=== PATIENT | male | born 1955 | race Two or more races ===

== ENCOUNTER 2017-12-16 18:48 | Inpatient (IN) | payer OTHER ==
[~2017-12-16] VITALS: Ht 165.1 cm; Wt 44.9 kg
--- NOTE | 2017-12-16 19:30 | NUR ---
62 yo male bib ra from snf. patient is alert and oriented, patient was sent by PMD for low H&H. patient was ds to er bed, skin warm and dry, resp even and unlabored. pt was gowned,placed on night monitor. awaiting orders from provider, will continue to monitor
[2017-12-16 20:20] LABS: BASOPHILS % (AUTO) 0.8 % (0.0-2.0); EOSINOPHILS % (AUTO) 0.1 % (0.0-6.0); HEMATOCRIT 29 % (39-51); HEMOGLOBIN 9.3 g/dL (13.5-17.5); LYMPHOCYTES # (AUTO) 0.5 /CMM (0.8-4.8); LYMPHOCYTES % (AUTO) 10.6 % (20.0-44.0); MEAN CORPUSCULAR HEMOGLOBIN 23 PG (26.0-33.0); MEAN CORPUSCULAR HGB CONC 32 g/dl (31.0-36.0); MEAN CORPUSCULAR VOLUME 73 fL (80-96); MONOCYTES # (AUTO) 0.1 /CMM (0.1-1.30); MONOCYTES % (AUTO) 2.3 % (2.0-12.0); NEUTROPHILS # (AUTO) 4.5 /CMM (1.8-8.9); NEUTROPHILS % (AUTO) 86.2 % (43.0-81.0); PLATELET COUNT (AUTO) 429 /CMM (150-450); RDW COEFFICIENT OF VARIATION 16.9 (11.5-15.0); RED BLOOD CELL COUNT(AUTO) 4.04 MIL/uL (4.5-6.0); WHITE BLOOD COUNT (AUTO) 5.1 K/uL (4.3-11.0)
[2017-12-16 20:30] LABS: CREATININE 0.8 mg/dL (0.6-1.3); POTASSIUM 5.3 mmol/L (3.5-5.1)
[2017-12-16 20:34] LABS: INR 0.95 (0.85-1.15)
--- NOTE | 2017-12-16 20:44 | NUR ---
RECEIVED CALL FROM LAB STATING BLOOD SAMPLE WAS HEMOLYZED AND NEW BLOOD DRAW IS REQUIRED. MADE AWARE
--- NOTE | 2017-12-16 21:12 | NUR ---
PT ASSIGNED M/S 103
[2017-12-16] MEDS ORDERED: ONDANSETRON HCL/PF 4 MG/2 ML VIAL IVP PRN (21:30)
[2017-12-16] MEDS ORDERED: ZOLPIDEM TARTRATE 5 MG TABLET PO PRN (21:30)
[2017-12-16] MEDS ORDERED: IV NS 0.9% 1,000 ML BAG IV ONE (21:30)
[2017-12-16] MEDS ORDERED: HYDROCODONE/APAP 5/325MG 1 EACH TABLET PO PRN (21:30)
[2017-12-16] MEDS ORDERED: MAG HYDROX/AL HYDROX/SIMETH 30 ML UDC PO PRN (21:30)
[2017-12-16] MEDS ORDERED: MAGNESIUM HYDROXIDE 30 ML UDC PO PRN (21:30)
[2017-12-16] MEDS ORDERED: MORPHINE SULFATE INJ 2 MG/ML DISP.SYRIN IV PRN (21:30)
[2017-12-16] MEDS ORDERED: ACETAMINOPHEN 325 MG TABLET PO PRN (21:30)
[2017-12-16] MEDS ORDERED: SODIUM POLYSTYRENE SULFONATE 15 G/60 ML BOTTLE GT ONE (21:30)
[2017-12-16] MEDS ORDERED: Z GUARD REMEDY 2 OZ OINT TP PRN (21:30)
[2017-12-16] MEDS ORDERED: MORPHINE SULFATE INJ 4 MG/ML DISP.SYRIN ONE (21:35)
[2017-12-16] MEDS ORDERED: HYDROMORPHONE INJ 2 MG/ML DISP.SYRIN ONE (21:36)
--- NOTE | 2017-12-16 22:15 | NUR ---
RN OPENING NOTES: RECEIVED PATIENT FROM ED VIA GURNEY; PT AWAKE AND ALERT; WITH TRACH ON COOL AEROSOL TOLERATED WELL, NOT I APPARENT DISTRESS. PATIENT NOTED TO BE COUGHING ALOT, WITH WHITE THICK SECRETIONS. SKIN CARE AND SKIN CHECK RENDERED. NOTED GT SITE RED AND MILDLY BLEEDING.; GT PATENCY CHECKED AND CONFIRMED VIA AUSCULTATION AND RETURN OF GASTRIC EVENTS. NO COMPLAINTS OF PAIN. SAFETY MEASURES ENSURED. CALL LIGHT IN REACH. ORAL CARE RENDERED. ORDERS NOTED AND CARRIED OUT. CONTINUOUSLY MONITORED
--- NOTE | 2017-12-16 22:15 | NUR ---
tranasported pt to ms bed with emt without incident
--- NOTE | 2017-12-16 22:25 | NUR ---
PT RCVD TRACHED PORTEX 9 AND PLACED ON COOL AEROSOL 28% 5L . SUCTIONED FROTHY WHITE THICK SECRETIONS. SPO2 100%, HR 100. PT IS ALERT AND AWAKE . NO RESPIRATORY DISTRESS OR SOB NOTED AT THIS TIME. RN BRIA NOTIFIED.
--- NOTE | 2017-12-16 23:15 | NUR ---
RN NOTES: DR MONTALVO IN, RELAYED CONCERNS TO MD. MD CHECKED PATIENT. MED RECON IN. MD TO VERIFY.
[2017-12-16] MEDS ORDERED: NA P133E RC (23:32)
[2017-12-16] MEDS ORDERED: BISA10SU61 RC (23:32)
[2017-12-16] MEDS ORDERED: *INS HUMA SQ (23:32)
[2017-12-16] MEDS ORDERED: SENN8.6T60 PO (23:32)
[2017-12-16] MEDS ORDERED: ONDA4TAB5 PO (23:32)
[2017-12-16] MEDS ORDERED: MELA3TAB PO (23:32)
[2017-12-16] MEDS ORDERED: ACET160S PO (23:32)
[2017-12-16] MEDS ORDERED: DOCU50LI13 PO (23:32)
[2017-12-16] MEDS ORDERED: MULT9LIQ6 PO (23:32)
[2017-12-16] MEDS ORDERED: NUT.237L30 PO (23:32)
[2017-12-16] MEDS ORDERED: ALBU2.5V13 NEB ×2 (23:32)
[2017-12-16] MEDS ORDERED: FAMO-131 PO (23:32)
[2017-12-16] MEDS ORDERED: MAGN400O6 GT (23:32)
[2017-12-16] MEDS ORDERED: FENT1PAT5 TP (23:32)
[2017-12-16] MEDS ORDERED: HYDR-548 PO (23:32)
[2017-12-17] VITALS (9 sets, daily range): BP systolic 90–107; BP diastolic 52–73
[2017-12-17] MEDS: IV NS 0.9% 1,000 ML IV PRN (00:29)
[2017-12-17] MEDS: GLUCERNA 1.2 1,000 ML BOTTLE NG PRN (01:22)
[2017-12-17] MEDS ORDERED: BISACODYL SUPP (10 MG) 10 MG/SUPP.RECT SUPP.RECT RC PRN (01:30)
[2017-12-17] MEDS ORDERED: NA PHOS,M-B/NA PHOS,DI-BA 1 EA ENEMA RC PRN (01:30)
[2017-12-17] MEDS ORDERED: MAGNESIUM HYDROXIDE 30 ML UDC GT PRN (01:30)
--- NOTE | 2017-12-17 01:50 | NUR ---
RN NOTES: NOTED MD TO HAVE VERIFIED MED RECON. AGREED TO SWITCH TYLENOL AND BREATHING TX PRN SAME SNF ORDERS. PER MD TO CONTINUE GT FEEDING IN SNF. HOLD FREE WATER FLUSHES WHILE PATIENT WITH IVF. PER MD NOT TO CONTINUE NPH BUT START PATIENT ON MILD SLIDING SCALE. NOTED AND CARRIED OUT. CONTINUOUSLY MONITORED.
[2017-12-17] MEDS ORDERED: ACETAMINOPHEN 160 MG/5 ML PO PRN ×2 (02:00→05:00)
[2017-12-17] MEDS ORDERED: INSULIN REGULAR, HUMAN 100 UNIT/ML 3 ML VIAL SQ PRN (02:00)
[2017-12-17] MEDS ORDERED: DEXTROSE 50%-WATER 50 ML DISP.SYRIN IV PRN (02:00)
[2017-12-17] MEDS ORDERED: IPRA0.2S49 NEB (02:14)
[2017-12-17] MEDS ORDERED: ALBUTEROL FS 2.5 MG/0.5 ML VIAL.NEB NEB PRN ×2 (05:00→06:00)
[2017-12-17] MEDS ORDERED: ACETAMINOPHEN 160 MG/5 ML PO SCH ×2 (05:00)
[2017-12-17] MEDS ORDERED: ALBUTEROL FS 2.5 MG/0.5 ML VIAL.NEB NEB SCH ×2 (05:00→06:00)
[2017-12-17] MEDS: BLOOD SUGAR DIAGNOSTIC 1 EACH STRIP IN SCH ×3 (05:04→17:12)
[2017-12-17 06:25] LABS: BASOPHILS % (AUTO) 0.1 % (0.0-2.0); EOSINOPHILS % (AUTO) 0.7 % (0.0-6.0); HEMATOCRIT 24 % (39-51); HEMOGLOBIN 7.5 g/dL (13.5-17.5); LYMPHOCYTES # (AUTO) 0.7 /CMM (0.8-4.8); LYMPHOCYTES % (AUTO) 12.2 % (20.0-44.0); MEAN CORPUSCULAR HEMOGLOBIN 24 PG (26.0-33.0); MEAN CORPUSCULAR HGB CONC 32 g/dl (31.0-36.0); MEAN CORPUSCULAR VOLUME 75 fL (80-96); MONOCYTES # (AUTO) 0.4 /CMM (0.1-1.30); MONOCYTES % (AUTO) 7.3 % (2.0-12.0); NEUTROPHILS # (AUTO) 4.6 /CMM (1.8-8.9); NEUTROPHILS % (AUTO) 79.7 % (43.0-81.0); PLATELET COUNT (AUTO) 349 /CMM (150-450); RDW COEFFICIENT OF VARIATION 18.1 (11.5-15.0); RED BLOOD CELL COUNT(AUTO) 3.14 MIL/uL (4.5-6.0); WHITE BLOOD COUNT (AUTO) 5.7 K/uL (4.3-11.0)
[2017-12-17 06:43] LABS: CALCIUM, SERUM 8.7 mg/dL (8.5-10.1); CREATININE 0.7 mg/dL (0.6-1.3); MAGNESIUM 2.1 mg/dL (1.8-2.4); PHOSPHORUS 3.9 mg/dL (2.5-4.9); POTASSIUM 4.3 mmol/L (3.5-5.1)
[2017-12-17] MEDS ORDERED: ACETAMINOPHEN 325 MG TABLET PO PRN (07:00)
--- NOTE | 2017-12-17 07:36 | NUR ---
RN CLOSING NOTES: PATIENT REMAINED IN BED NOT IN APPARENT DISTRESS. NOTED GT SLIGHTLY LEAKING. MONITORED FOR FURTHER BLEEDING. AM LABS DRAWN; RESULTS IN. FOR MD TO FOLLOW UP. SKIN CARE RENDERED; ENDORSED TO AM SHIFT ESTEVAN SOLORIO.
--- NOTE | 2017-12-17 07:49 | NUR ---
MS ESTEVAN OPENING NOTE RECEIVED PATIENT IN BED, SLEEPING, EASILY AROUSED WITH VERBAL STIMULI. ORIENTED X4. UNABLE TO SPEAK DUE TO TRACH BUT MOUTHS WORDS AND WRITES ON A BOARD. PATIENT IS ON COOL AEROSOL WITH 5L O2 TOLERATING WELL. PATIENT WITH G-TUBE AND FEEDING RUNNING AT 80ML/HR. GT SITE HAS MODERATE SEROSONGUINEOUS DRAINAGE Addendum: 12/17/17 at 0756 by LYNDSEY PAZ RN DRESSING CHANGED AND INTACT. WITH L FOREARM IV ACCESS 18G. WITH FLUIDS RUNNING AT 100ML.HR. PATENT AND INTACT. NO SIGN OF INFILTRATION NOTED. KEPT CLEAN AND COMFORTABLE, SAFETY MEASURES IN PLACE, BED IN LOWL OCKED POSITION, SIDE RAILS UP X2, CALL LIGHT WITHIN EASY REACH. WILL CONIUE TO MONITOR.
[2017-12-17] MEDS: SENNOSIDES 8.6 MG TABLET PO SCH (08:56)
[2017-12-17] MEDS: FAMOTIDINE (20 MG) 20 MG TABLET PO SCH (08:56)
[2017-12-17] MEDS: DOCUSATE SODIUM LIQ 100 MG/10 ML UDC PO SCH (08:58)
[2017-12-17] MEDS ORDERED: HYDROCODONE/APAP 10/325MG 1 EA TABLET PO SCH (09:00)
[2017-12-17] MEDS ORDERED: HYDROCODONE/APAP 10/325MG 1 EA TABLET PO PRN (09:00)
[2017-12-17] MEDS ORDERED: FENTANYL TD PATCH (25 MCG/HR) 25 MCG/HR PATCH.TD72 TD SCH (10:00)
[2017-12-17] MEDS ORDERED: MAG HYDROX/AL HYDROX/SIMETH 30 ML UDC PO PRN (14:30)
[2017-12-17] MEDS ORDERED: Medication Not On Formulary EA (Melatonin 1 TAB) PO SCH (18:00)
[2017-12-17 18:15] LABS: BASOPHILS % (AUTO) 0.2 % (0.0-2.0); EOSINOPHILS % (AUTO) 0.5 % (0.0-6.0); HEMATOCRIT 21 % (39-51); LYMPHOCYTES # (AUTO) 0.6 /CMM (0.8-4.8); LYMPHOCYTES % (AUTO) 14.2 % (20.0-44.0); MEAN CORPUSCULAR HEMOGLOBIN 24 PG (26.0-33.0); MEAN CORPUSCULAR HGB CONC 32 g/dl (31.0-36.0); MEAN CORPUSCULAR VOLUME 75 fL (80-96); MONOCYTES # (AUTO) 0.4 /CMM (0.1-1.30); MONOCYTES % (AUTO) 8.7 % (2.0-12.0); NEUTROPHILS # (AUTO) 3.2 /CMM (1.8-8.9); NEUTROPHILS % (AUTO) 76.4 % (43.0-81.0); PLATELET COUNT (AUTO) 326 /CMM (150-450); RDW COEFFICIENT OF VARIATION 18.7 (11.5-15.0); RED BLOOD CELL COUNT(AUTO) 2.87 MIL/uL (4.5-6.0); WHITE BLOOD COUNT (AUTO) 4.2 K/uL (4.3-11.0)
[2017-12-17 18:23] LABS: HEMOGLOBIN 6.9 g/dL (13.5-17.5)
--- NOTE | 2017-12-17 18:33 | NUR ---
MS RN CLOSING NOTE PATIENT IN BED, SLEEPING, EASILY AROUSED WITH VERBAL STIMULI. ORIENTED X4. UNABLE TO SPEAK DUE TO TRACH BUT MOUTHS WORDS AND WRITES ON A BOARD. PATIENT IS ON COOL AEROSOL WITH 5L O2 TOLERATING WELL, CONTINUOUS PULSOX MONITORING. PATIENT WITH G-TUBE AND FEEDING HELD PER MD ORDER. GT SITE HAS MODERATE SEROSANGUINEOUS DRAINAGE AND LEAKAGE, DRESSING CHANGED AND INTACT. PLAN TO REPLACE G-TUBE IN AM BY DR. KRAUS. WITH L FOREARM IV ACCESS 18G. WITH FLUIDS RUNNING AT 100ML.HR. PATENT AND INTACT. NO SIGN OF INFILTRATION NOTED. ALL MEDICATIONS GIVEN, ORDERS RENDERED, DRESSING CHANGE DONE NEEDED, SUCTIONED NEEDED, KEPT CLEAN AND COMFORTABLE, SAFETY MEASURES IN PLACE, BED IN LOW LOCKED POSITION, SIDE RAILS UP X2, CALL LIGHT WITHIN EASY REACH. WILL CONTINUE TO MONITOR. Addendum: 12/17/17 at 1837 by LYNDSEY PAZ RN WILL ENDORSE TO PM NURSE FOR VITO.
[2017-12-17 18:46] LABS: BAND % (MANUAL) 16 % (0.0-5.0); LYMPHOCYTES % (MANUAL) 17 % (16-48); MONOCYTES % (MANUAL) 9 % (0-11.0); NEUTROPHILS % (MANUAL) 58 (42-76)
--- NOTE | 2017-12-17 19:15 | NUR ---
MS1 RN NOTES RECEIVED ON BED A/O X4,WITH TRACH TO COOL AEROSOL,28%,PORTEX #9.O2 SAT 100%.WITH IVF NS AT 100ML/HR RATE INFUSING WELL VIA IV PUMP ON LEFT FORE AR, #18.CURRENTLY HIS H/H 69/21.WILL TRANSFUSE 1 UNIT OF PRBC ORDERED.WITH GT IN PLACE,SLIGHT LEAKS NOTED ON SITE.DRESSING IN PLACE.WILL CONTINUE TO MONITOR STATUS.
--- NOTE | 2017-12-17 19:48 | NUR ---
MS1 RN NOTES 1 UNITS ON PRBC STARTED AT 100ML/HR RATE VIA IV PUMP.WILL MONITOR FOR S/S OF BLOOD TRANSFUSION REACTIONS.
--- NOTE | 2017-12-17 22:46 | NUR ---
MS1 RN NOTES DRESSING CHANGE TO GT SITE DONE
--- NOTE | 2017-12-17 22:59 | NUR ---
MS RN NOTES BLOOD TRANSFUSION COMPLETED WITHOUT ADVERSE REACTIONS NOTED,TOLERATED WELL.VITAL SIGNS WITH IN NORMAL LIMITS.PATIENT ALERT,ORIENTED X4
--- NOTE | 2017-12-17 23:00 | NUR ---
RN INITIAL NOTE RECEIVED PATIENT IN BED, AWAKE, ORIENTED X4. UNABLE TO SPEAK DUE TO TRACH BUT MOUTHS WORDS AND WRITES ON A BOARD. PATIENT IS ON COOL AEROSOL WITH 5L O2 TOLERATING WELL. PATIENT HAS G-TUBE CLAMPED. REPORT GIVEN BY MANUEL. WILL CONT TO MONITOR.
--- NOTE | 2017-12-17 23:04 | NUR ---
MS RN NOTES NO SIGNIFICANT CHANGE IN STATUS AT THE MOMENT.REPORT GIVEN TO TELLO BARRETO FOR VITO.
[2017-12-18] VITALS: BP 95/59
[2017-12-18] MEDS: BLOOD SUGAR DIAGNOSTIC 1 EACH STRIP IN SCH ×4 (00:17→18:00)
[2017-12-18 04:00] VITALS: BP 110/58
[2017-12-18 06:28] LABS: CALCIUM, SERUM 8.3 mg/dL (8.5-10.1); CREATININE 0.6 mg/dL (0.6-1.3); POTASSIUM 4.3 mmol/L (3.5-5.1)
[2017-12-18 06:43] LABS: BASOPHILS % (AUTO) 0.2 % (0.0-2.0); EOSINOPHILS % (AUTO) 1.6 % (0.0-6.0); HEMATOCRIT 26 % (39-51); HEMOGLOBIN 8.5 g/dL (13.5-17.5); LYMPHOCYTES # (AUTO) 0.9 /CMM (0.8-4.8); MEAN CORPUSCULAR HEMOGLOBIN 26 PG (26.0-33.0); MEAN CORPUSCULAR HGB CONC 33 g/dl (31.0-36.0); MEAN CORPUSCULAR VOLUME 79 fL (80-96); MONOCYTES # (AUTO) 0.3 /CMM (0.1-1.30); MONOCYTES % (AUTO) 6.1 % (2.0-12.0); NEUTROPHILS # (AUTO) 3.4 /CMM (1.8-8.9); NEUTROPHILS % (AUTO) 73.1 % (43.0-81.0); PLATELET COUNT (AUTO) 306 /CMM (150-450); RDW COEFFICIENT OF VARIATION 20.5 (11.5-15.0); RED BLOOD CELL COUNT(AUTO) 3.33 MIL/uL (4.5-6.0); WHITE BLOOD COUNT (AUTO) 4.7 K/uL (4.3-11.0)
--- NOTE | 2017-12-18 07:20 | NUR ---
RN INITIAL NOTE RECEIVED PATIENT IN BED, AWAKE, ORIENTED X4. UNABLE TO SPEAK DUE TO TRACH BUT MOUTHS WORDS AND WRITES ON A BOARD. PATIENT IS ON COOL AEROSOL WITH 5L O2 SATURATING 99%. PATIENT HAS G-TUBE CLAMPED. IV ON LFA#18 WITH NS @100CC/HR.GT REPLACEMENT TODAY PER REPORT.PATIENT MADE AWARE.NPO STATUS NOW. WILL CONT TO MONITOR.
[2017-12-18 08:00] VITALS: BP 96/64
[2017-12-18] MEDS: SENNOSIDES 8.6 MG TABLET PO SCH (08:11)
[2017-12-18] MEDS: FAMOTIDINE (20 MG) 20 MG TABLET PO SCH (08:11)
[2017-12-18] MEDS: DOCUSATE SODIUM LIQ 100 MG/10 ML UDC PO SCH (08:11)
[2017-12-18] MEDS: IV NS 0.9% 1,000 ML IV PRN (09:09)
[2017-12-18] MEDS ORDERED: FENTANYL TD PATCH (25 MCG/HR) 25 MCG/HR PATCH.TD72 TD SCH (10:00)
--- NOTE | 2017-12-18 12:55 | NUR ---
RN NOTES PATIENT BLOOD SUGAR CHECKED .60 AND 63.NPO.ON IVF NS AT 75CC/HR.BAND SAW OPERATOR NATASHA MADE AWARE.CHANGED IVF TO D5NS AT 100CC/HR.ALSO MADE HIM AWARE ABOUT SURGERY NOT HAVING ANY SCHEDULE TO DO GT REPLACEMENT TODAY.HE TOLD WILL SEE THE PATIENT LATER.WILL CONTINUE TO MONITOR.
[2017-12-18] MEDS ORDERED: IV D5/ 0.9% NACL 1,000 ML IV PRN (13:00)
[2017-12-18] MEDS ORDERED: LIDOCAINE 1% INJ 50 ML MDV IJ ONE (14:30)
--- NOTE | 2017-12-18 14:30 | NUR ---
RN NOTES SEEN BY ,REPLACED GT WITH NEW GT [id number].PLACEMENT VERIFIED WITH AUSCULTATION.NO KUB NEEDED PER .GOT AN ORDER TO RESUME FEEDING TO 40CCHR AND INCREASE 10CC Q6H UNTIL REACH GOAL OF 80CCHR.WILL CONTINUE TO MONITOR.
[2017-12-18] MEDS: GLUCERNA 1.2 1,000 ML BOTTLE NG PRN (15:28)
[2017-12-18] MEDS ORDERED: IV NS 0.9% 1,000 ML BAG IV PRN (15:30)
[2017-12-18 16:00] VITALS: BP 96/65
[2017-12-18] MEDS ORDERED: SILVER SULFADIAZINE CREAM 25 GM TUBE TP SCH ×2 (16:00)
--- NOTE | 2017-12-18 17:30 | NUR ---
RN NOTES SEEN BY JOSE KAUR GOT DISCHARGE ORDER.
--- NOTE | 2017-12-18 19:17 | NUR ---
PLANT PATHOLOGY TEACHER NOTE PATIENT [facility] TO [facility] IN STABLE CONDITION VIA AMBULANCE.NO SOB NO DISTRESS NOTED AT THIS TIME.DENIED PAIN AT THIS TIME.ALL DISCHARGE INSTRUCTIONS GIVEN TO THE PATIENT AND RN AT FACILITY,SPOKE TO SAMUEL.PAPER WORK SIGNED BY THE PATIENT,TOOK ALL THE BELONGINGS.DISCHARGE PACKET GIVEN TO PARAMEDICS.BROTHER NOTIFIED,LEFT MESSAGE.
== END 2017-12-18 19:15 | DRG 252 ==
LOC: ER 18:54 → MEDSG1 21:57
PROVIDERS: ADMIT Internal Medicine; ATTEND Internal Medicine
PROC: 30233N1 Transfusion of Nonautologous Red Blood Cells into Peripheral Vein, Percutaneous Approach (ICD-10-PCS; principal; 2017-12-17)
DX: K94.22 Gastrostomy infection (principal); J96.20 Acute and chronic respiratory failure, unspecified whether with hypoxia or hypercapnia; E43 Unspecified severe protein-calorie malnutrition; J96.10 Chronic respiratory failure, unspecified whether with hypoxia or hypercapnia; R53.2 Functional quadriplegia; D68.59 Other primary thrombophilia; C76.0 Malignant neoplasm of head, face and neck; E87.1 Hypo-osmolality and hyponatremia; L03.311 Cellulitis of abdominal wall; E86.0 Dehydration; E11.9 Type 2 diabetes mellitus without complications; D63.8 Anemia in other chronic diseases classified elsewhere; J44.9 Chronic obstructive pulmonary disease, unspecified; K21.9 Gastro-esophageal reflux disease without esophagitis; Y84.8 Other medical procedures as the cause of abnormal reaction of the patient, or of later complication, without mention of misadventure at the time of the procedure; Y82.8 Other medical devices associated with adverse incidents; Z87.891 Personal history of nicotine dependence; Y92.129 Unspecified place in nursing home as the place of occurrence of the external cause; Z85.850 Personal history of malignant neoplasm of thyroid; R26.9 Unspecified abnormalities of gait and mobility; D50.9 Iron deficiency anemia, unspecified; E87.6 Hypokalemia; E86.1 Hypovolemia; R13.10 Dysphagia, unspecified; Z79.4 Long term (current) use of insulin
CPT/HCPCS: 31720; 36415; 71045-TC; 80048-TC; 82962-TC; 83735-TC; 84100-TC; 85025-TC; 85730-TC; 86850-TC; 86921-TC; 87081-TC; 94640-TC; A4606; A4623; A6402; A6403; J1170; J1815; J2270; J3490; J7030; J7042; J7050; P9016-BL; Z7610

== ENCOUNTER 2018-01-22 14:54 | Inpatient (IN) | payer OTHER ==
[~2018-01-22] VITALS: Ht 165.1 cm; Wt 46.7 kg
[~2018-01-22 14:54] MED LIST: *INS HUMA SQ; ACET160S GT; ACET160S PO; ALBU2.5V13 NEB; BISA10SU61 RC; DOCU50LI13 GT; FAMO-131 GT; FENT1PAT5 TP; HYDR-548 GT; IPRA0.2S49 NEB; MAGN400O6 GT; MELA3TAB GT; MULT9LIQ6 GT; NA P133E RC; NUT.237L30 GT; ONDA4TAB5 GT; SENN8.6T60 GT
--- NOTE | 2018-01-22 15:05 | NUR ---
SENT FROM [facility] FOR LOW HEMOGLOBIN. PATIENT HAS TRACH ON COOL AEROSOL. BREATHING EVEN AND UNLABORED. NO SOB, NAD, VITALS STABLE. SAFETY AND COMFORT MEASURES IN PLACE. AWAITING MD ORDERS.
[2018-01-22] MEDS ORDERED: IPRA0.2S9 IH ×2 (15:13)
[2018-01-22] MEDS ORDERED: INSU100V27 SQ (15:13)
[2018-01-22] MEDS ORDERED: BLOO-668 IN (15:13)
[2018-01-22] MEDS ORDERED: PANTOPRAZOLE 40 MG VIAL ONE (15:22)
[2018-01-22] MEDS ORDERED: PANTOPRAZOLE 40 MG VIAL IV ONE (15:30)
--- NOTE | 2018-01-22 15:30 | NUR ---
NEW IV STARTED ON RFA, 20G. BLOOD DRAWN AND SENT TO LAB.
[2018-01-22 15:39] LABS: HEMATOCRIT 25 % (39-51); HEMOGLOBIN 7.9 g/dL (13.5-17.5); LYMPHOCYTES # (AUTO) 0.6 /CMM (0.8-4.8); LYMPHOCYTES % (AUTO) 22.5 % (20.0-44.0); MEAN CORPUSCULAR HEMOGLOBIN 25 PG (26.0-33.0); MEAN CORPUSCULAR HGB CONC 32 g/dl (31.0-36.0); MEAN CORPUSCULAR VOLUME 77 fL (80-96); NEUTROPHILS % (AUTO) 74.5 % (43.0-81.0); PLATELET COUNT (AUTO) 178 /CMM (150-450); RDW COEFFICIENT OF VARIATION 17.3 (11.5-15.0); RED BLOOD CELL COUNT(AUTO) 3.17 MIL/uL (4.5-6.0); WHITE BLOOD COUNT (AUTO) 2.6 K/uL (4.3-11.0)
[2018-01-22 15:48] LABS: CALCIUM, SERUM 9.3 mg/dL (8.5-10.1); CARBON DIOXIDE 35 mmol/L (21-32); CHLORIDE 88 mmol/L (98-107); CREATININE 0.8 mg/dL (0.6-1.3); GLUCOSE 136 mg/dL (74-106); POTASSIUM 3.5 mmol/L (3.5-5.1); SODIUM SERUM 127 mmol/L (136-145); UREA NITROGEN, BLOOD 21 mg/dL (7-18)
[2018-01-22 15:51] LABS: INR 0.98 (0.85-1.15)
[2018-01-22 15:55] LABS: TROPONIN I < 0.017 ng/mL (0.00-0.056)
[2018-01-22 16:01] LABS: B-TYPE NATRIURETIC PEPTIDE 66 PG/ML (0-125)
--- NOTE | 2018-01-22 16:23 | NUR ---
DR. SELVIN IBRAHIM.
[2018-01-22] MEDS ORDERED: IV NS 0.9% 1,000 ML BAG IV ONE (16:30)
[2018-01-22 17:15] VITALS: BP 106/70
--- NOTE | 2018-01-22 17:15 | NUR ---
REPORT GIVEN TO RN, AFSATU FOR VITO UPON ADMISSION.
--- NOTE | 2018-01-22 17:24 | NUR ---
PATIENT TRANSPORTED TO [facility] VIA ACLS PROTOCOL. RN, AFSATU TO PROVIDE VITO.
[2018-01-22] MEDS ORDERED: ZOLPIDEM TARTRATE 5 MG TABLET PO PRN (17:30)
[2018-01-22] MEDS ORDERED: MORPHINE SULFATE INJ 2 MG/ML DISP.SYRIN IV PRN (17:30)
[2018-01-22] MEDS ORDERED: ALBUTEROL FS 2.5 MG/0.5 ML VIAL.NEB NEB PRN (17:30)
[2018-01-22] MEDS ORDERED: BISACODYL SUPP (10 MG) 10 MG/SUPP.RECT SUPP.RECT RC PRN (17:30)
[2018-01-22] MEDS ORDERED: MAG HYDROX/AL HYDROX/SIMETH 30 ML UDC PO PRN (17:30)
[2018-01-22] MEDS ORDERED: Z GUARD REMEDY 2 OZ OINT TP PRN (17:30)
[2018-01-22] MEDS ORDERED: NA PHOS,M-B/NA PHOS,DI-BA 1 EA ENEMA RC PRN (17:30)
[2018-01-22] MEDS ORDERED: IPRATROPIUM NEB FS 0.5 MG/2.5 ML AMPUL.NEB IH PRN (17:30)
[2018-01-22] MEDS ORDERED: MAGNESIUM HYDROXIDE 30 ML UDC PO PRN (17:30)
[2018-01-22] MEDS ORDERED: ONDANSETRON HCL/PF 4 MG/2 ML VIAL IVP PRN (17:30)
[2018-01-22] MEDS ORDERED: HYDROCODONE/APAP 5/325MG 1 EACH TABLET PO PRN (17:30)
--- NOTE | 2018-01-22 17:36 | NUR ---
VOCATIONAL EXAMINERNEUROPHYSIOLOGIST NOTES RECEIVED PT FROM ER NURSE IN STABLE CONDITION. PT WILL BE ADMITTED FOR ANEMIA. PT IS A/O X3. NO SOB OR ACUTE SIGNS IF DISTRESS NOTED. HE DENIES ANY DIZZINESS OR PAIN. BREATHING IS EVEN AND UNLABORED. T PIECE NOTED. PEG NOTED TO BE PATENT AND INTACT. PLACEMENT VERIFIED VIA AUSCULTATION. EXCORIATION NOTED AROUND GTUBE SITE. PHOTO TAKEN AND PLACED IN PT'S CHART. PT IS CURRENTLY SINUS TACH ON THE TELE MONITOR WITH A HR OF 109. IV TO RIGHT FA NOTED TO BE PATENT AND INTACT. NO REDNESS OR SIGNS OF INFILTRATION NOTED. PT ORIENTED TO ROOM AND USE OS CALL LIGHT. BELONGINGS VERIFIED BY METAL PATTERN MAKER. BED IN LOW LOCKED POSITION, SIDE RAILS UP X2, CALL LIGHT WITHIN REACH. WILL BEGIN ADMISSION PROCESS AND AWAIT FURTHER ORDERS FROM THE
[2018-01-22] MEDS ORDERED: INSULIN REGULAR, HUMAN 100 UNIT/ML 3 ML VIAL SQ PRN (18:00)
[2018-01-22] MEDS ORDERED: DEXTROSE 50%-WATER 50 ML DISP.SYRIN IV PRN (18:00)
--- NOTE | 2018-01-22 18:23 | NUR ---
RELAY MAN NOTES: RESPIRATORY AND DIETARY F/U RT CONTACTED FOR 1800 NEBULIZER TREATMENT. PER RT "WE WILL BE THERE SHORTLY" DIETARY CONTACTED IN REGARDS TO TUBE FEEDING. PER DIETITIAN, "WE WILL BRING HIS FEEDINGS"
[2018-01-22] MEDS: IV NS 0.9% 1,000 ML IV PRN (18:58)
--- NOTE | 2018-01-22 18:58 | NUR ---
HEALTH PROGRAM MANAGER CLOSING NOTES PT REMAINS STABLE SINCE ADMISSION. AWAITING TUBE FEEDING DELIVERY FROM DIETARY. NS INFUSION STARTED. WILL ENDORSE TO NIGHTSHIFT NURSE TO BEGIN FEEDING AND VITO
[2018-01-22] MEDS: IPRATROPIUM NEB FS 0.5 MG/2.5 ML AMPUL.NEB IH SCH (19:19)
[2018-01-22] MEDS: ALBUTEROL FS 2.5 MG/0.5 ML VIAL.NEB NEB SCH (19:19)
--- NOTE | 2018-01-22 20:00 | NUR ---
CLINICAL TECH INITIAL NOTES RECEIVED PT FROM AM SHIFT NURSE IN STABLE CONDITION. PT ADMITTED FOR ANEMIA, HGH ABOVE 7, STANDING ORDER TO TRANSFUSE <7. PT IS A/O X3. NO SOB OR ACUTE SIGNS IF DISTRESS NOTED. HE DENIES ANY DIZZINESS OR PAIN. BREATHING IS EVEN AND UNLABORED. T PIECE NOTED. PEG NOTED, GTF GLUCERNA 1.2@80ML/HR, WELL LAWSON, NO RESIDUAL AT THIS TIME. PLACEMENT VERIFIED VIA AUSCULTATION. HOB ELEVATED WILL CONT TO MONITOR.
[2018-01-22] MEDS: GLUCERNA 1.2 1,000 ML BOTTLE GT SCH (20:41)
[2018-01-22] MEDS: SENNOSIDES 8.6 MG TABLET GT SCH (20:42)
[2018-01-22] MEDS: DOCUSATE SODIUM LIQ 100 MG/10 ML UDC GT SCH (20:42)
[2018-01-22] MEDS: BLOOD SUGAR DIAGNOSTIC 1 EACH STRIP IN SCH (20:42)
[2018-01-22] MEDS ORDERED: Medication Not On Formulary EA (Melatonin 3 MG) GT SCH (22:00)
--- NOTE | 2018-01-22 23:30 | NUR ---
TELE/RN ASSUMED CARE FOR CONTINUITY OF CARE. PATIENT IS SLEEPING AT THIS TIME, AROUSABLE, APPEAR COMFORTABLE, NO DISTRESS NOTED, SITTER AT BEDSIDE. WILL MONITOR. Addendum: 01/23/18 at 0009 by SHAKIR HUNTER RN PLS. DISREGARD ABOVE DOCUMENTATION, CHARTED ON THE WRONG PATIENT.
--- NOTE | 2018-01-22 23:30 | NUR ---
TELE/RN ASSUMED CARE FOR CONTINUITY OF CARE. PATIENT IS AWAKE, ALERT, COMFORTABLE, NO DISTRESS NOTED, TRACH COLLAR TO COOL AEROSOL, GT FEEDING INFUSING, NO RESIDUAL NOTED, HOB ELEVATED, CALL LIGHT IN REACH. WILL MONITOR.
[2018-01-23] VITALS (23 sets, daily range): BP systolic 87–102; BP diastolic 50–66
[2018-01-23] MEDS: ALBUTEROL FS 2.5 MG/0.5 ML VIAL.NEB NEB SCH ×4 (01:11→19:48)
[2018-01-23] MEDS: IPRATROPIUM NEB FS 0.5 MG/2.5 ML AMPUL.NEB IH SCH ×4 (01:11→19:48)
--- NOTE | 2018-01-23 06:00 | NUR ---
TELE/RN MORNING CARE DONE, TOTAL LINEN CHANGE RENDERED. TRACH CARE DONE, TOLERATED. G TUBE SITE LEAKING, CLEANED SITE WITH NS, DRAIN SPONGE DRESSING APPLIED, FEEDING STOPPED. WILL ENDORSE TO DAY SHIFT RN. PATIENT HAD AN ON AND OFF SLEEP THE WHOLE SHIFT, SUCTIONED TRACH PRN WITH WHITE SECRETIONS. ALL NEEDS ATTENDED AT THIS TIME. WILL ENDORSE
[2018-01-23 06:49] LABS: BILIRUBIN,TOTAL 0.2 mg/dL (0.2-1.0); CALCIUM, SERUM 8.5 mg/dL (8.5-10.1); CREATININE 0.7 mg/dL (0.6-1.3); POTASSIUM 3.4 mmol/L (3.5-5.1); TOTAL PROTEIN, SERUM 7.3 g/dL (6.4-8.2)
--- NOTE | 2018-01-23 07:30 | NUR ---
NECKTIE CENTRALIZING MACHINE OPERATOR NOTES REPORT RECEIVED FROM PM NURSE.PATIENT IS AXOX4.IN BED AWAKE.NOT IN ANY DISTRESS.C/O PAIN IN THE ABDOMEN.ON COOL AEROSOL AND GT FEEDING.GT LEAKING GT FEEDING ON HOLD .WAITING FOR GI CONSULT.BED IS LOW AND IN LOCKED POSITION.CALL LIGHT IN REACH.SRX3.ASKED TO CALL FOR HELP.ABLE TO MAKE NEEDS OWN.WILL CONTINUE TO MONITOR.
[2018-01-23 07:49] LABS: BASOPHILS % (AUTO) 0.3 % (0.0-2.0); HEMATOCRIT 21 % (39-51); LYMPHOCYTES # (AUTO) 0.6 /CMM (0.8-4.8); LYMPHOCYTES % (AUTO) 25.7 % (20.0-44.0); MEAN CORPUSCULAR HEMOGLOBIN 25 PG (26.0-33.0); MEAN CORPUSCULAR HGB CONC 32 g/dl (31.0-36.0); MEAN CORPUSCULAR VOLUME 79 fL (80-96); MONOCYTES # (AUTO) 0.1 /CMM (0.1-1.30); MONOCYTES % (AUTO) 2.1 % (2.0-12.0); NEUTROPHILS # (AUTO) 1.8 /CMM (1.8-8.9); NEUTROPHILS % (AUTO) 70.9 % (43.0-81.0); PLATELET COUNT (AUTO) 165 /CMM (150-450); RDW COEFFICIENT OF VARIATION 18.3 (11.5-15.0); RED BLOOD CELL COUNT(AUTO) 2.67 MIL/uL (4.5-6.0); WHITE BLOOD COUNT (AUTO) 2.5 K/uL (4.3-11.0)
[2018-01-23 08:21] LABS: HEMOGLOBIN 6.8 g/dL (13.5-17.5)
[2018-01-23] MEDS: SENNOSIDES 8.6 MG TABLET GT SCH ×2 (08:23→20:06)
[2018-01-23] MEDS: DOCUSATE SODIUM LIQ 100 MG/10 ML UDC GT SCH ×2 (08:25→20:06)
[2018-01-23] MEDS: MORPHINE SULFATE INJ 4 MG/ML DISP.SYRIN IV PRN (08:26)
--- NOTE | 2018-01-23 08:38 | NUR ---
CANVAS CUTTER MACHINE NOTES BLOOD SUGAR 135.INSULIN NOT ADMINISTERED BECAUSE GTUBE LEAKING UNABLE TO CONNECT TO G TUBE FEEDING
[2018-01-23] MEDS ORDERED: DIATR MEGLU/DIATRIZOATE SODIUM 30 ML BOTTLE (GASTROGRAPHIN) ONE (09:01)
[2018-01-23] MEDS: BLOOD SUGAR DIAGNOSTIC 1 EACH STRIP IN SCH ×2 (09:10→20:48)
[2018-01-23] MEDS ORDERED: POTASSIUM CHLORIDE 20 MEQ POWDER PACKET GT SCH (10:00)
--- NOTE | 2018-01-23 10:00 | NUR ---
QUANTITATIVE ANALYST MARKETING NOTES PATIENT C/O PAIN THE ABDOMEN.UNABLE TO ASPIRATE AND LEAKING FROM GTUBE.ENDO TECH IFRAH AWARE.GOT NEW ORDER FOR KUB.NOTED AD CARRIED OUT.
[2018-01-23] MEDS: IV NS 0.9% 1,000 ML IV PRN (10:12)
[2018-01-23 10:14] LABS: BAND % (MANUAL) 3 % (0.0-5.0); LYMPHOCYTES % (MANUAL) 3 % (16-48); MONOCYTES % (MANUAL) 1 % (0-11.0); NEUTROPHILS % (MANUAL) 93 (42-76)
[2018-01-23] MEDS: FAMOTIDINE (20 MG) 20 MG TABLET GT SCH (10:15)
[2018-01-23] MEDS: MULTIVIT, IRON, MIN NO. 8, FA 1 TAB GT SCH (10:15)
--- NOTE | 2018-01-23 11:18 | NUR ---
MANAGER PORT NOTES SEEN BY IFRAH NOTIFIED THAT PATIENT REFUSED BLOOD TRANSFUSION AND SCARED ABOUT CONTAMINATION WHILE BLOOD TRANSFUSION.PHYSIATRIST TALKED TO THE PATIENT.OK TO DO BLOOD TRANSFUSION.
--- NOTE | 2018-01-23 12:00 | NUR ---
ASPHALT SURFACE HEATER OPERATOR NOTES SEEN BY JOSE BURNETT UPDATED ABOUT PATIENT CONDITION.TALKED TO THE PATIENT.OK TO DO BLOOD TRANSFUSION.SIGNED THE CONSENT.
[2018-01-23] MEDS: ACETAMINOPHEN 325 MG TABLET PO PRN (16:26)
[2018-01-23] MEDS: SILVER SULFADIAZINE CREAM 25 GM TUBE TP SCH (18:13)
[2018-01-23] MEDS: GLUCERNA 1.2 1,000 ML BOTTLE GT SCH (18:35)
--- NOTE | 2018-01-23 19:10 | NUR ---
WATER TREATMENT PLANT REPAIRER CLOSING NOTES PATIENT IS AXOX4.IN BED AWAKE.NOT IN ANY DISTRESS.C/O PAIN IN THE ABDOMEN.ON COOL AEROSOL AND GT FEEDING .S/P BLOOD TRANSFUSION.IN STABLE CONDITION.GOT NEW ORDER FROM HORTENCIA,CHANGED GLUCERNA TO 60CC/HR PER DIETARY RECOMMENDATION .BED IS LOW AND IN LOCKED POSITION.CALL LIGHT IN REACH.SRX3.ASKED TO CALL FOR HELP.ABLE TO MAKE NEEDS OWN.ENDORSED TO PM NURSE FOR VITO AND TO DO LAB H/H FOR F/U AT 8PM.
--- NOTE | 2018-01-23 19:30 | NUR ---
FILM COMPOSER NOTES: RECEIVED PT ON BED ALERT AND AWAKE, ABLE TO MAKE NEEDS KNOWN. NO ACUTE DISTRESS NOTED. NO COMPLAINTS OF PAIN OR DISCOMFORT AT THIS TIME. ON COOL AEROSOL, NO SOB NOTED. GT INTACT, NO LEAKAGE NOTED AT THIS TIME. ON TELE MONITOR, SINUS RHYTHM HR 98BPM. IV ON RIGHT FOREARM #20 WITH IVF NS RUNNING AT 75ML/HR, INFUSING WELL. KEPT CLEAN, DRY AND COMFORTABLE. CALL LIGHT PLACED WITHIN REACH. SAFETY AND FALL PRECAUTIONS OBSERVED AND MAINTAINED. WILL CONTINUE TO MONITOR PT.
[2018-01-23] MEDS ORDERED: GLUCERNA 1.2 1,000 ML BOTTLE GT SCH (20:30)
[2018-01-23 21:11] LABS: HEMOGLOBIN 9.3 g/dL (13.5-17.5)
[2018-01-24] VITALS (9 sets, daily range): BP systolic 83–103; BP diastolic 41–70
[2018-01-24] MEDS: IPRATROPIUM NEB FS 0.5 MG/2.5 ML AMPUL.NEB IH SCH ×4 (01:14→20:28)
[2018-01-24] MEDS: ALBUTEROL FS 2.5 MG/0.5 ML VIAL.NEB NEB SCH ×4 (01:15→20:28)
[2018-01-24] MEDS: IV NS 0.9% 1,000 ML IV PRN ×2 (05:37→19:37)
--- NOTE | 2018-01-24 06:19 | NUR ---
PELLETISING EXTRUDER OPERATOR NOTES: NO CHANGES NOTED THROUGHOUT THE SHIFT. DENIES PAIN AND DISCOMFORT AT THIS TIME. NO SOB NOTED. SUCTIONED NEEDED. MINIMAL LEAKAGE NOTED ON GT SITE. KEPT CLEAN, DRY AND COMFORTABLE. SAFETY AND FALL PRECAUTIONS OBSERVED AND MAINTAINED. WILL ENDORSE TO DAY SHIFT FOR CONTINUITY OF CARE.
[2018-01-24 06:48] LABS: CALCIUM, SERUM 8.7 mg/dL (8.5-10.1); CREATININE 0.6 mg/dL (0.6-1.3); POTASSIUM 3.9 mmol/L (3.5-5.1)
[2018-01-24 07:30] LABS: BASOPHILS % (AUTO) 0.3 % (0.0-2.0); HEMATOCRIT 28 % (39-51); HEMOGLOBIN 9.2 g/dL (13.5-17.5); LYMPHOCYTES # (AUTO) 0.4 /CMM (0.8-4.8); LYMPHOCYTES % (AUTO) 21.4 % (20.0-44.0); MEAN CORPUSCULAR HEMOGLOBIN 27 PG (26.0-33.0); MEAN CORPUSCULAR HGB CONC 33 g/dl (31.0-36.0); MEAN CORPUSCULAR VOLUME 84 fL (80-96); MONOCYTES # (AUTO) 0.1 /CMM (0.1-1.30); MONOCYTES % (AUTO) 3.4 % (2.0-12.0); NEUTROPHILS # (AUTO) 1.5 /CMM (1.8-8.9); NEUTROPHILS % (AUTO) 73.9 % (43.0-81.0); PLATELET COUNT (AUTO) 133 /CMM (150-450); RDW COEFFICIENT OF VARIATION 18.7 (11.5-15.0); RED BLOOD CELL COUNT(AUTO) 3.36 MIL/uL (4.5-6.0); WHITE BLOOD COUNT (AUTO) 2.1 K/uL (4.3-11.0)
[2018-01-24] MEDS: MULTIVIT, IRON, MIN NO. 8, FA 1 TAB GT SCH (08:35)
[2018-01-24] MEDS: SENNOSIDES 8.6 MG TABLET GT SCH ×2 (08:35→21:52)
[2018-01-24] MEDS: DOCUSATE SODIUM LIQ 100 MG/10 ML UDC GT SCH ×2 (08:36→21:51)
[2018-01-24] MEDS: SILVER SULFADIAZINE CREAM 25 GM TUBE TP SCH (08:36)
--- NOTE | 2018-01-24 08:41 | NUR ---
Gastric residual 5ml.
[2018-01-24] MEDS: BLOOD SUGAR DIAGNOSTIC 1 EACH STRIP IN SCH ×2 (09:32→21:52)
[2018-01-24] MEDS: FAMOTIDINE (20 MG) 20 MG TABLET GT SCH (11:37)
--- NOTE | 2018-01-24 12:58 | NUR ---
Tube feeding site redness and leak of tube feeding with skin of center of site pulling away from rest of the surrounding tissue.
[2018-01-24 13:02] LABS: RETICULOCYTE COUNT 1.9 % (0.6-2.5)
[2018-01-24 14:16] LABS: THYROID STIMULATING HORMONE 0.473 uIU/mL (0.358-3.74); URIC ACID 4.6 mg/dL (2.6-7.2)
--- NOTE | 2018-01-24 17:03 | NUR ---
Oral care and tracheostomy suctioning. Offered lip moisturizer.
--- NOTE | 2018-01-24 18:03 | NUR ---
G-tube dressing change. Scant drainage noted at site. Improved skin condition. Much improved with Doctor Mauri cleaning and tightening of bumper.
--- NOTE | 2018-01-24 19:38 | NUR ---
Handoff to night nurse, ESTEVAN Iglesias. Ricki Enriquez RN
--- NOTE | 2018-01-24 20:00 | NUR ---
RN NOTES: RECEIVED BEDSIDE REPORT FROM AM NURSE. PT ON BED ALERT AND AWAKE, ABLE TO MAKE NEEDS KNOWN. NO ACUTE DISTRESS NOTED. NO COMPLAINTS OF PAIN OR DISCOMFORT AT THIS TIME. ON COOL AEROSOL, NO SOB NOTED. GT INTACT, NO LEAKAGE NOTED AT THIS TIME. ON TELE MONITOR, SINUS RHYTHM HR 94BPM. IV ON RIGHT FOREARM #20 WITH IVF NS RUNNING AT 75ML/HR, INFUSING WELL. KEPT CLEAN, DRY AND COMFORTABLE. CALL LIGHT PLACED WITHIN REACH. SAFETY AND FALL PRECAUTIONS OBSERVED AND MAINTAINED. WILL CONTINUE TO MONITOR PT.
[2018-01-24] MEDS: GLUCERNA 1.2 1,000 ML BOTTLE GT SCH (23:52)
[2018-01-25] VITALS: BP 95/58
[2018-01-25] MEDS: ALBUTEROL FS 2.5 MG/0.5 ML VIAL.NEB NEB SCH ×4 (01:00→20:13)
[2018-01-25] MEDS: IPRATROPIUM NEB FS 0.5 MG/2.5 ML AMPUL.NEB IH SCH ×4 (01:00→20:13)
[2018-01-25 04:00] VITALS: BP_SYST 129; BP_SYST 94; BP_DIAS 55; BP_DIAS 85
[2018-01-25] MEDS: ACETAMINOPHEN 325 MG TABLET PO PRN ×2 (05:15→12:56)
--- NOTE | 2018-01-25 06:00 | NUR ---
RN CLOSING NOTES PATIENT IN BED, A/OX4, ON T PIECE ,NON VERBAL, MOUTH WORDS. ON ACCREDITED PHARMACY TECHNICIAN SR, GTUBE FEEDING GLUCERNA 1.2@50ML/HR. GOT A CALL FROM LAB THAT PATIENT'S WBC IS 1.8, CHARGE NURSE GERMAN AND SOON NOTIFIED, PATIENT MOOVED TO REVERSE ISOLATION. RIGHT FOREARN IV LINE IS PATIENT, INTACT WITH IV FLUIDS NS @75ML/HR.WOUND CARE PROVIDED. ALL SAFETY MEASURES ARE IMPLEMENTED, BED IN LOWEST, LOCKED POSITIO, CALL LIGHT IN REACH. PT CARE WILL BE INDORSED TO AM NURSE FOR NURSE AIDE.
[2018-01-25 06:31] LABS: BASOPHILS % (AUTO) 0.4 % (0.0-2.0); EOSINOPHILS % (AUTO) 0.8 % (0.0-6.0); HEMATOCRIT 26 % (39-51); HEMOGLOBIN 8.5 g/dL (13.5-17.5); LYMPHOCYTES # (AUTO) 0.6 /CMM (0.8-4.8); LYMPHOCYTES % (AUTO) 35.9 % (20.0-44.0); MEAN CORPUSCULAR HEMOGLOBIN 27 PG (26.0-33.0); MEAN CORPUSCULAR HGB CONC 32 g/dl (31.0-36.0); MEAN CORPUSCULAR VOLUME 83 fL (80-96); MONOCYTES # (AUTO) 0.2 /CMM (0.1-1.30); MONOCYTES % (AUTO) 9.3 % (2.0-12.0); NEUTROPHILS % (AUTO) 53.6 % (43.0-81.0); PLATELET COUNT (AUTO) 116 /CMM (150-450); RDW COEFFICIENT OF VARIATION 17.7 (11.5-15.0); RED BLOOD CELL COUNT(AUTO) 3.19 MIL/uL (4.5-6.0)
[2018-01-25 06:45] LABS: WHITE BLOOD COUNT (AUTO) 1.8 K/uL (4.3-11.0)
[2018-01-25 06:48] LABS: CALCIUM, SERUM 8.7 mg/dL (8.5-10.1); CREATININE 0.5 mg/dL (0.6-1.3)
--- NOTE | 2018-01-25 07:30 | NUR ---
VALUE STREAM MANAGER OPENING NOTE RECEIVED PATIENT RESTING IN BED, A&OX4, ABLE TO MAKE NEEDS KNOWN BY MOUTHING WORDS. ON T PIECE, NO RESPIRATORY DISTRESS NOTED. PLACED ON REVERSE ISOLATION DUE TO LOW WHITE BLOOD CELL COUNT. IV SITE ON RIGHT FOREARM INTACT INFUSING NORMAL SALINE AT 75ML/HR. GLUCERNA INFUSING ORDERED. BED LOW AND LOCKED, CALL LIGHT WITHIN REACH, WILL CONTINUE TO MONITOR .
[2018-01-25 08:00] VITALS: BP 88/46
[2018-01-25] MEDS: DOCUSATE SODIUM LIQ 100 MG/10 ML UDC GT SCH ×2 (09:47→21:20)
[2018-01-25] MEDS: SENNOSIDES 8.6 MG TABLET GT SCH ×2 (09:50→21:20)
[2018-01-25] MEDS: SILVER SULFADIAZINE CREAM 25 GM TUBE TP SCH (09:50)
[2018-01-25] MEDS: MULTIVIT, IRON, MIN NO. 8, FA 1 TAB GT SCH (09:50)
[2018-01-25] MEDS: BLOOD SUGAR DIAGNOSTIC 1 EACH STRIP IN SCH ×2 (09:53→21:55)
[2018-01-25 09:55] LABS: BAND % (MANUAL) 4 % (0.0-5.0); BASOPHILS % (MANUAL) 0 % (0.0-2.0); EOSINOPHILS % (MANUAL) 0 % (0-4); LYMPHOCYTES % (MANUAL) 38 % (16-48); MONOCYTES % (MANUAL) 11 % (0-11.0); NEUTROPHILS % (MANUAL) 47 (42-76)
[2018-01-25 12:00] VITALS: BP 93/57
[2018-01-25] MEDS: FAMOTIDINE (20 MG) 20 MG TABLET GT SCH (12:14)
[2018-01-25] MEDS: IV NS 0.9% 1,000 ML IV PRN (12:16)
[2018-01-25 16:00] VITALS: BP 90/48
--- NOTE | 2018-01-25 17:13 | NUR ---
OVEN STRIPPER NOTE PATIENT WITH ONE EPISODE OF LOOSE STOOL. PORT STEWARD AWARE. WILL CONTINUE TO MONITOR.
[2018-01-25] MEDS ORDERED: COD LIVER OIL/ZINC OXIDE 120 GM TUBE TP PRN (17:30)
[2018-01-25] MEDS ORDERED: LOPERAMIDE HCL UDC(2 MG/10 ML) 2 MG/10 ML UDC GT PRN (18:30)
--- NOTE | 2018-01-25 19:40 | NUR ---
TELEGRAPH INSTALLER CLOSING NOTE PATIENT RESTING IN BED IN STABLE CONDITION. TRACH WITH T PIECE, SUCTIONED NEEDED. G TUBE SITE CARE DONE, ALL NEEDS MET AT THIS TIME. PATIENT ABLE TO MAKE NEEDS KNOWN. SINUS RHYTHM ON SHEAR OPERATOR HELPER. G TUBE FEEDING INFUSING PRESCRIBED, NORMAL SALINE INFUSING AT 75ML/HR, IV SITE INTACT. HEAD OF BED ELEVATED, BED LOW AND LOCKED, CALL LIGHT WITHIN REACH, WILL ENDORSE TO ONCOMING NURSE FOR CONTINUITY OF CARE.
[2018-01-25 20:00] VITALS: BP 109/62
--- NOTE | 2018-01-25 20:35 | NUR ---
pt received on cool aerosol via trach with charted settings. airway patent. trach secure via trach tie. pt alert. ambu bag at bedside. suctioned a small amount of thin white secretions. pt receiving breathing tx q6 at this time. pt hob at 30 degrees. suctioned oral secretion from pts mouth Addendum: 01/25/18 at 2035 by BEVERLY STEIN RT Amended: Links added.
[2018-01-25] MEDS: GLUCERNA 1.2 1,000 ML BOTTLE GT SCH (21:36)
[2018-01-26] VITALS (7 sets, daily range): BP systolic 88–119; BP diastolic 53–67
[2018-01-26] MEDS: IV NS 0.9% 1,000 ML IV PRN (01:32)
[2018-01-26] MEDS: MORPHINE SULFATE INJ 4 MG/ML DISP.SYRIN IV PRN ×2 (01:35→22:22)
[2018-01-26] MEDS: ALBUTEROL FS 2.5 MG/0.5 ML VIAL.NEB NEB SCH ×4 (01:36→20:13)
[2018-01-26] MEDS: IPRATROPIUM NEB FS 0.5 MG/2.5 ML AMPUL.NEB IH SCH ×4 (01:36→20:13)
[2018-01-26] MEDS: IV D5/0.45 NACL 1,000 ML IV SCH ×2 (02:53→15:24)
[2018-01-26 07:13] LABS: CALCIUM, SERUM 8.5 mg/dL (8.5-10.1); CREATININE 0.6 mg/dL (0.6-1.3); POTASSIUM 3.8 mmol/L (3.5-5.1)
--- NOTE | 2018-01-26 07:36 | NUR ---
WOUND CARE CONSULT WOUND CARE RECEIVED CONSULT FOR WOUND CARE. WOUND CARE WILL DEFER CONSULT AND ALL TREATMENT PLANS TO SURGICAL TEAM WHO ARE CURRENTLY FOLLOWING. PATIENT WITH MU AT 14, ALL PRESSURE ULCER PREVENTION MEASURES ARE NOTED TO BE IN PLACE. WILL SEE PRN.
--- NOTE | 2018-01-26 07:55 | NUR ---
TELE/RN NOTES: REPORT GIVEN TO NEXT SHIFT NURSE FOR VITO.
--- NOTE | 2018-01-26 08:00 | NUR ---
telegraph printer mechanic note patient in bed , alert oriented x4 with trach to cooler aerosol 28% fi02 sat 99% on tele monitor sr hr 71 , bed in lowest and locked position. plan of care discussed with patient , ,g tube feeding on hold at this time, hold all Meds, will f\u , g tube site with severe redness ans leaking ,tender to touch, on ivf as ordered , iv hl on rt fa intact, no s\infection noted , will cont to monitor closely on reverse isolation as ordered , trach care done
[2018-01-26] MEDS: SENNOSIDES 8.6 MG TABLET GT SCH ×2 (08:20→21:44)
[2018-01-26] MEDS: MULTIVIT, IRON, MIN NO. 8, FA 1 TAB GT SCH (08:20)
[2018-01-26] MEDS: DOCUSATE SODIUM LIQ 100 MG/10 ML UDC GT SCH ×2 (08:20→21:44)
[2018-01-26] MEDS: SILVER SULFADIAZINE CREAM 25 GM TUBE TP SCH (08:21)
[2018-01-26] MEDS: BLOOD SUGAR DIAGNOSTIC 1 EACH STRIP IN SCH ×2 (08:34→21:49)
[2018-01-26 08:59] LABS: WHITE BLOOD COUNT (AUTO) 1.5 K/uL (4.3-11.0)
[2018-01-26 09:00] LABS: BASOPHILS % (AUTO) 0.3 % (0.0-2.0); EOSINOPHILS % (AUTO) 0.7 % (0.0-6.0); HEMATOCRIT 25 % (39-51); HEMOGLOBIN 8.4 g/dL (13.5-17.5); LYMPHOCYTES % (AUTO) 43.1 % (20.0-44.0); MEAN CORPUSCULAR HEMOGLOBIN 28 PG (26.0-33.0); MEAN CORPUSCULAR HGB CONC 33 g/dl (31.0-36.0); MEAN CORPUSCULAR VOLUME 83 fL (80-96); MONOCYTES % (AUTO) 16.3 % (2.0-12.0); NEUTROPHILS % (AUTO) 39.6 % (43.0-81.0); PLATELET COUNT (AUTO) 93 /CMM (150-450); RDW COEFFICIENT OF VARIATION 18.7 (11.5-15.0); RED BLOOD CELL COUNT(AUTO) 3.05 MIL/uL (4.5-6.0)
[2018-01-26] MEDS ORDERED: TBO-FILGRASTIM 300 MCG/0.5 ML SYRINGE SQ SCH (09:00)
[2018-01-26] MEDS ORDERED: DIATR MEGLU/DIATRIZOATE SODIUM 30 ML BOTTLE (GASTROGRAPHIN) ONE (09:02)
--- NOTE | 2018-01-26 10:00 | NUR ---
INCIDENT COMMANDER NOTE ABDOMINAL X RAY DONE ORDERED
--- NOTE | 2018-01-26 10:37 | NUR ---
television host note spoke with daphney rn sourcer aware that gtube feeding site with redness and g tube site is leaking, g tube feeding on hold aware that Meds was not given patient is npo Addendum: 01/26/18 at 1047 by RONALD BLANCO RN notifyed to Kami that wbc 1.5 stated that patient has ent ca and will check patient soon
[2018-01-26] MEDS: FAMOTIDINE (20 MG) 20 MG TABLET GT SCH (10:43)
--- NOTE | 2018-01-26 10:56 | NUR ---
telephone clerk note Kami rn labor mediator at bedside seen g tube stoma .aware of kub result .stated keep npo at this time and will call gi doctor
[2018-01-26 11:42] LABS: BAND % (MANUAL) 3 % (0.0-5.0); EOSINOPHILS % (MANUAL) 1 % (0-4); LYMPHOCYTES % (MANUAL) 42 % (16-48); MONOCYTES % (MANUAL) 16 % (0-11.0); NEUTROPHILS % (MANUAL) 38 (42-76)
--- NOTE | 2018-01-26 12:00 | NUR ---
ATHLETIC FIELD CUSTODIAN NOTE ALL NEEDS ATTENDED G TUBE SITE CARE DONE, ALL NEEDS ATTENDED
--- NOTE | 2018-01-26 14:54 | NUR ---
PAINTER BOTTOM NOTE WOUND CARE NURSE AT BEDSIDE, SEEN G TUBE SITE ,WILL F\U
--- NOTE | 2018-01-26 15:35 | NUR ---
PRODUCT DESIGNER NOTE DR KRAUS AT BEDSIDE SEEN G TUBE STOMA WITH NEW ORDER GIVEN ,OK TO START G TUBE FEEDING, WILL F\U
--- NOTE | 2018-01-26 16:36 | NUR ---
HISTOLOGIST TECHNOLOGIST NOTE STARTED G TUBE FEEDING ORDERED AT 30 ML ,KEEP HOB ELEVATED AT ALL TIME .NO LEAKING AT THIS TIME ,WILL F\U
[2018-01-26] MEDS: ACETAMINOPHEN 325 MG TABLET PO PRN (16:44)
--- NOTE | 2018-01-26 18:11 | NUR ---
STOCK BROKER NOTE NOTED SMALL AMT OF LEAKAGE WITH G TUBE SITE ,TX DONE ORDERED, KEEP HOB ELEVATED AT ALL TIME WILL CONT TO MONITOR CLOSELY ,TRACH SECTION DONE .ALL NEEDS ATTENDED
--- NOTE | 2018-01-26 18:53 | NUR ---
CORPORATE WEBMASTER NOTE CONT ON G TUBE FEEDING ORDERED, TRACH SUCTION DONE, ALL NEEDS ATTENDED. NOT IN ACUTE DISTRESS, WILL CONT TO MONITOR CLOSELY
--- NOTE | 2018-01-26 19:30 | NUR ---
TELE/RN NOTES: RECEIVED PT. IN BED W/ HOB ELEVATED. ON REVERSE ISOLATION FOR WBC OF 1.5. A/O X 4. ABLE TO MAKE NEEDS KNOWN. ON GLUCERNA 1.2 W/ NO RESIDUAL NOTED. ABLE TO SUCTION SELF W/ YANKER. CONTINENT OF B/B. ABLE TO USE URINAL. ON TELE MONITOR W/SR 81. WILL CONTINUE TO MONITOR.
[2018-01-26] MEDS ORDERED: MORPHINE SULFATE INJ 4 MG/ML DISP.SYRIN ONE (22:17)
[2018-01-27] VITALS: BP 101/63
[2018-01-27] MEDS: ALBUTEROL FS 2.5 MG/0.5 ML VIAL.NEB NEB SCH ×4 (02:29→19:21)
[2018-01-27] MEDS: IPRATROPIUM NEB FS 0.5 MG/2.5 ML AMPUL.NEB IH SCH ×4 (02:29→19:21)
[2018-01-27 04:00] VITALS: BP 109/67
[2018-01-27] MEDS: MORPHINE SULFATE INJ 4 MG/ML DISP.SYRIN IV PRN (04:12)
[2018-01-27] MEDS: IV D5/0.45 NACL 1,000 ML IV SCH ×2 (05:47→20:20)
[2018-01-27 06:37] LABS: CALCIUM, SERUM 8.4 mg/dL (8.5-10.1); CREATININE 0.5 mg/dL (0.6-1.3); MAGNESIUM 1.9 mg/dL (1.8-2.4); PHOSPHORUS 3.2 mg/dL (2.5-4.9); POTASSIUM 3.3 mmol/L (3.5-5.1)
--- NOTE | 2018-01-27 07:00 | NUR ---
RN NOTES RECEIVED PT ON BED, A/Ox4, TRACH DEPENDENT, NO SOB NOTED, PT WATCHING TV, CARINE ANY DISTRESS, ON TELE SR HR IN 80'S , GLUCERNA AT 40CC/HR RUNNING VIA G-TUBE, D51/2NS AT 75CC/HR RUNNING VIA R FA IV G20 , SITE CLEAN , DRY AND INTACT, SR UP x3, CALL LIGHT WITHIN EASY REACH, BED LOCKED AND IN LOWEST POSITION, CONTINUE TO MONITOR.
--- NOTE | 2018-01-27 07:01 | NUR ---
WOUND CARE CONSULT WOUND CARE RECEIVED SECOND WOUND CONSULT FOR PEG CELLULITIS. WOUND CARE WILL CONTINUE TO DEFER TO SURGICAL TEAM WHO ARE CURRENTLY FOLLOWING. WOUND CARE RECOMMENDS GI CONSULT FOR PEG SITE CONTINUOUS LEAKING. WILL SEE PRN.
--- NOTE | 2018-01-27 07:24 | NUR ---
TELE/RN NOTES: REPORT GIVEN TO NEXT SHIFT NURSE FOR VITO.
[2018-01-27 07:25] LABS: BASOPHILS % (AUTO) 0.4 % (0.0-2.0); EOSINOPHILS % (AUTO) 0.5 % (0.0-6.0); HEMATOCRIT 25 % (39-51); HEMOGLOBIN 8.3 g/dL (13.5-17.5); LYMPHOCYTES # (AUTO) 0.6 /CMM (0.8-4.8); LYMPHOCYTES % (AUTO) 33.7 % (20.0-44.0); MEAN CORPUSCULAR HEMOGLOBIN 27 PG (26.0-33.0); MEAN CORPUSCULAR HGB CONC 33 g/dl (31.0-36.0); MEAN CORPUSCULAR VOLUME 83 fL (80-96); MONOCYTES # (AUTO) 0.4 /CMM (0.1-1.30); MONOCYTES % (AUTO) 20.7 % (2.0-12.0); NEUTROPHILS # (AUTO) 0.7 /CMM (1.8-8.9); NEUTROPHILS % (AUTO) 44.7 % (43.0-81.0); PLATELET COUNT (AUTO) 98 /CMM (150-450); RED BLOOD CELL COUNT(AUTO) 3.03 MIL/uL (4.5-6.0)
[2018-01-27 07:31] LABS: WHITE BLOOD COUNT (AUTO) 1.7 K/uL (4.3-11.0)
[2018-01-27 08:00] VITALS: BP 90/64
[2018-01-27] MEDS: DOCUSATE SODIUM LIQ 100 MG/10 ML UDC GT SCH ×2 (08:30→20:44)
[2018-01-27] MEDS: SENNOSIDES 8.6 MG TABLET GT SCH ×2 (08:30→20:43)
[2018-01-27] MEDS: MULTIVIT, IRON, MIN NO. 8, FA 1 TAB GT SCH (08:30)
[2018-01-27] MEDS: COD LIVER OIL/ZINC OXIDE 120 GM TUBE TP SCH (08:31)
[2018-01-27] MEDS: SILVER SULFADIAZINE CREAM 25 GM TUBE TP SCH (08:31)
[2018-01-27] MEDS: BLOOD SUGAR DIAGNOSTIC 1 EACH STRIP IN SCH ×2 (09:05→21:17)
[2018-01-27 09:31] LABS: BAND % (MANUAL) 13 % (0.0-5.0); EOSINOPHILS % (MANUAL) 1 % (0-4); LYMPHOCYTES % (MANUAL) 35 % (16-48); MONOCYTES % (MANUAL) 24 % (0-11.0); NEUTROPHILS % (MANUAL) 27 (42-76)
[2018-01-27] MEDS: FAMOTIDINE (20 MG) 20 MG TABLET GT SCH (11:20)
[2018-01-27] MEDS: GLUCERNA 1.2 1,000 ML BOTTLE GT SCH (11:26)
[2018-01-27] MEDS ORDERED: POTASSIUM CHLORIDE 20 MEQ POWDER PACKET GT ONE (11:30)
[2018-01-27 12:00] VITALS: BP 104/72
--- NOTE | 2018-01-27 12:00 | NUR ---
RN NOTES GT SITE STILL OOZING , PRESSURE DRESSING APPLIED, TF TO 30 CC/HR , ISAAC ASSOCIATE PROFESSOR OF RADIOLOGY NOTIFED . CONTINUE TO MONITOR
[2018-01-27] MEDS ORDERED: DIATR MEGLU/DIATRIZOATE SODIUM 30 ML BOTTLE (GASTROGRAPHIN) ONE (14:09)
[2018-01-27] MEDS: TBO-FILGRASTIM 300 MCG/0.5 ML SYRINGE SQ SCH (15:16)
[2018-01-27 16:00] VITALS: BP 98/61
--- NOTE | 2018-01-27 18:07 | NUR ---
RN NOTES DRESSING ON GT SITE DRY AND INTACT AT THIS TIME , PT TOLERATING TF WELL AT 30CC/HR , NO RESIDUAL NOTED , IVF D51/2NS AT 75CC/HR RUNNING VIA F FA IV SITE , SR UP x3, CALL LIGHT WITHIN EASY REACH, BED LOCKED AND IN LOWEST POSITION, WILL ENDORSE TO CORRESPONDENCE CLERK NURSE FOR CONTINUITY OF CARE
--- NOTE | 2018-01-27 19:30 | NUR ---
TELE/RN NOTES: RECEIVED PT. IN BED W/ HOB ELEVATED. ON REVERSE ISOLATION FOR WBC OF 1.7. A/O X 4. ABLE TO MAKE NEEDS KNOWN. ON GLUCERNA 1.2 W/ NO RESIDUAL NOTED. ABLE TO SUCTION SELF W/ YANKER. CONTINENT OF B/B. ABLE TO USE URINAL. ON TELE MONITOR W/SR 84. WILL CONTINUE TO MONITOR.
[2018-01-27 20:00] VITALS: BP 109/65
[2018-01-28] VITALS: BP 91/57
[2018-01-28] MEDS: ALBUTEROL FS 2.5 MG/0.5 ML VIAL.NEB NEB SCH ×4 (01:22→19:30)
[2018-01-28] MEDS: IPRATROPIUM NEB FS 0.5 MG/2.5 ML AMPUL.NEB IH SCH ×4 (01:22→19:30)
[2018-01-28 05:13] VITALS: BP 90/58
[2018-01-28 06:22] LABS: BASOPHILS % (AUTO) 0.4 % (0.0-2.0); EOSINOPHILS % (AUTO) 0.2 % (0.0-6.0); HEMATOCRIT 26 % (39-51); HEMOGLOBIN 8.1 g/dL (13.5-17.5); LYMPHOCYTES # (AUTO) 0.7 /CMM (0.8-4.8); LYMPHOCYTES % (AUTO) 24.1 % (20.0-44.0); MEAN CORPUSCULAR HEMOGLOBIN 27 PG (26.0-33.0); MEAN CORPUSCULAR HGB CONC 32 g/dl (31.0-36.0); MEAN CORPUSCULAR VOLUME 84 fL (80-96); MONOCYTES # (AUTO) 0.4 /CMM (0.1-1.30); NEUTROPHILS # (AUTO) 1.9 /CMM (1.8-8.9); NEUTROPHILS % (AUTO) 63.3 % (43.0-81.0); PLATELET COUNT (AUTO) 93 /CMM (150-450); RDW COEFFICIENT OF VARIATION 19.4 (11.5-15.0); RED BLOOD CELL COUNT(AUTO) 3.02 MIL/uL (4.5-6.0)
[2018-01-28 06:32] LABS: CALCIUM, SERUM 8.4 mg/dL (8.5-10.1); CREATININE 0.5 mg/dL (0.6-1.3); MAGNESIUM 1.9 mg/dL (1.8-2.4); PHOSPHORUS 3.6 mg/dL (2.5-4.9); POTASSIUM 3.4 mmol/L (3.5-5.1)
--- NOTE | 2018-01-28 07:24 | NUR ---
TELE/RN NOTES: REPORT GIVEN TO NEXT SHIFT NURSE FOR VITO.
[2018-01-28 08:00] VITALS: BP 95/59
--- NOTE | 2018-01-28 08:00 | NUR ---
RN NOTES RECEIVED PATIENT IN BED, ALERT AND ORIENTED X4, WITH T PIECE IN PLACE AND INTACT, ON 28% COOL AEROSOL,NO COMPLAINS OF SHORTNESS OF BREATH AT THIS TIME, SATURATING ON 99%, SUCTION FOR AIRWAY PATENCY, SECRETION WHITISH, THIN IN CONSISTENCY, WITH COMPLAINS OF GENERAL PAIN AND SPECIFICALLY AT THE GT SITE - WILL ADMINISTER PAIN MEDICATION. ON TELEMONITOR SR, HR AT 95BPM, LFA IV #20 INTACT AND FLUSHES WELL, WITH ONGOING D5 1/2 NS RUNNING AT 75 CC/HR, WITH GT IN PLACE, INTACT AND PATENT UPON FLUSHING. FEEDING OFF AT THIS TIME.PATIENT ON REVERSE ISOLATION. AMBULATORY. ORIENTED TO FLOOR, ENCOURAGE THE US OF CALL LIGHT FOR ASSISTANCE, CALL LIGHT LEFT WITHIN REACH, BED LOW AND LOCK, WILL KEEP ON ISOLATION AND WILL CONTINUE TO MONITOR.
--- NOTE | 2018-01-28 08:30 | NUR ---
RN NOTES RESTARTED FEEDING PER GASTRO MD. (OFF AT 12 MN AND ON AT 8AM FOR 2 DAYS TO PROMOTE GT FEEDING.) ASPIRATION PRECAUTION INITIATED. GT PLACEMENT CONFIRMED THROUGH AUSCULTATION. WILL CONTINUE TO MONITOR PATIENT.
[2018-01-28] MEDS: DOCUSATE SODIUM LIQ 100 MG/10 ML UDC GT SCH (08:43)
[2018-01-28] MEDS: IV D5/0.45 NACL 1,000 ML IV SCH (08:43)
[2018-01-28] MEDS: SENNOSIDES 8.6 MG TABLET GT SCH (08:44)
[2018-01-28] MEDS: MULTIVIT, IRON, MIN NO. 8, FA 1 TAB GT SCH (08:44)
[2018-01-28] MEDS: SILVER SULFADIAZINE CREAM 25 GM TUBE TP SCH (09:03)
[2018-01-28] MEDS: COD LIVER OIL/ZINC OXIDE 120 GM TUBE TP SCH (09:03)
[2018-01-28] MEDS: BLOOD SUGAR DIAGNOSTIC 1 EACH STRIP IN SCH (09:04)
[2018-01-28 09:10] LABS: BAND % (MANUAL) 7 % (0.0-5.0); LYMPHOCYTES % (MANUAL) 34 % (16-48); MONOCYTES % (MANUAL) 11 % (0-11.0); NEUTROPHILS % (MANUAL) 48 (42-76)
[2018-01-28] MEDS ORDERED: POTASSIUM CHLORIDE 20 MEQ POWDER PACKET GT SCH (10:30)
[2018-01-28] MEDS: FAMOTIDINE (20 MG) 20 MG TABLET GT SCH (11:42)
[2018-01-28 12:00] VITALS: BP 89/63
[2018-01-28] MEDS ORDERED: TBO-300S SQ (15:34)
[2018-01-28] MEDS ORDERED: ALLA266C2 TP (15:34)
[2018-01-28] MEDS ORDERED: NUT.237L45 GT (15:34)
[2018-01-28] MEDS ORDERED: Silver Sulfadiazine Cream TP (15:34)
[2018-01-28] MEDS: TBO-FILGRASTIM 300 MCG/0.5 ML SYRINGE SQ SCH (15:56)
[2018-01-28 16:00] VITALS: BP 92/62
--- NOTE | 2018-01-28 18:30 | NUR ---
RN NOTES PATIENT DISCHARGED. EXIT CARE DONE. PHOTOS TAKEN AND NOTED.ALL QUESTION ADDRESSED AND ANSWERED. ALL BELONGINGS ACCOUNTED AND GAVE BACK TO PATIENT. ALL DISCHARGE AND MEDICATION INSTRUCTION GIVEN TO ADELINE BARRETO. PATIENT TRANSFERRED OUT TO FACILITY ACCOMPANIED BY 2 EMT.
== END 2018-01-28 19:30 | DRG 663 ==
LOC: ER 14:56 → TELE1 17:07
PROVIDERS: ADMIT Nurse Practitioner Acute Care; ATTEND Nurse Practitioner Acute Care
PROC: 30233N1 Transfusion of Nonautologous Red Blood Cells into Peripheral Vein, Percutaneous Approach (ICD-10-PCS; principal; 2018-01-23)
DX: D50.9 Iron deficiency anemia, unspecified (principal); R64 Cachexia; D61.818 Other pancytopenia; D69.6 Thrombocytopenia, unspecified; Z93.0 Tracheostomy status; Z93.1 Gastrostomy status; R13.10 Dysphagia, unspecified; C76.0 Malignant neoplasm of head, face and neck; E86.0 Dehydration; J44.9 Chronic obstructive pulmonary disease, unspecified; R26.9 Unspecified abnormalities of gait and mobility; Z79.4 Long term (current) use of insulin; Z87.891 Personal history of nicotine dependence; E86.1 Hypovolemia; D72.819 Decreased white blood cell count, unspecified; Z92.21 Personal history of antineoplastic chemotherapy
CPT/HCPCS: 31720; 36415; 71045-TC; 74018; 80048-TC; 80053-TC; 80061-TC; 82728-TC; 82962-TC; 83010; 83540-TC; 83735-TC; 83880; 84100-TC; 84443-TC; 84484-TC; 84550-TC; 85025-TC; 85027-TC; 85045-TC; 85652-TC; 85730-TC; 86850-TC; 86921-TC; 87081-TC; 94640-TC; 94760-TC; 97110-TC; 97116-TC; 97530-TC; A4606; A6253; A6402; A6403; C9113; J1442; J1815; J2270; J3490; J7030; J7070; P9016-BL; Q9963; Z7610

== ENCOUNTER 2018-06-18 15:51 | Emergency (ER) | payer OTHER ==
[~2018-06-18] VITALS: Ht 165.1 cm; Wt 47.2 kg
[~2018-06-18 15:51] MED LIST changes: -*INS HUMA SQ; -ACET160S PO; +ALLA266C2 TP; +BLOO-668 IN; +HYDR-4354 GT; -HYDR-548 GT; +INSU100V27 SQ; -IPRA0.2S49 NEB; +IPRA0.2S9 IH; -NUT.237L30 GT; +NUT.237L45 GT; +Silver Sulfadiazine Cream TP; +TBO-300S SQ
--- NOTE | 2018-06-18 16:03 | NUR ---
[facility] FOR LOW HEMOGLOBIN 6.4. PT IS ON TRACH, NO VENT. HE IS AOX4, AMB, VSS, RR EVEN AND UNLABORED. UNABLE TO SPEAK, BUT ABLE TO WRITE. DENIES SOB, DIZZINESS, WEAKNESS, N/V. NO ACUTE DISTRESS NOTED. READY FOR EVAL.
--- NOTE | 2018-06-18 16:05 | NUR ---
PHLEB AT BEDSIDE FOR BLOOD DRAW
[2018-06-18 16:17] LABS: BASOPHILS % (AUTO) 0.1 % (0.0-2.0); EOSINOPHILS % (AUTO) 0.2 % (0.0-6.0); HEMATOCRIT 25 % (39-51); HEMOGLOBIN 7.8 g/dL (13.5-17.5); LYMPHOCYTES # (AUTO) 0.4 /CMM (0.8-4.8); LYMPHOCYTES % (AUTO) 7.5 % (20.0-44.0); MEAN CORPUSCULAR HGB CONC 32 g/dl (31.0-36.0); MEAN CORPUSCULAR VOLUME 76 fL (80-96); MONOCYTES # (AUTO) 0.4 /CMM (0.1-1.30); MONOCYTES % (AUTO) 6.4 % (2.0-12.0); NEUTROPHILS % (AUTO) 85.8 % (43.0-81.0); PLATELET COUNT (AUTO) 295 /CMM (150-450); RED BLOOD CELL COUNT(AUTO) 3.27 MIL/uL (4.5-6.0); WHITE BLOOD COUNT (AUTO) 5.8 K/uL (4.3-11.0)
[2018-06-18] MEDS ORDERED: ESCI10TA GT (16:20)
[2018-06-18] MEDS ORDERED: OXYC10TA49 GT (16:20)
[2018-06-18] MEDS ORDERED: OXYC5TAB3 PO (16:20)
[2018-06-18] MEDS ORDERED: NUT.237L31 GT (16:20)
[2018-06-18] MEDS ORDERED: OXYC5TAB3 GT (16:20)
[2018-06-18] MEDS ORDERED: LORA0.5T GT (16:20)
[2018-06-18] MEDS ORDERED: INSU100V36 SQ (16:20)
[2018-06-18] MEDS ORDERED: OXYC10TA49 PO (16:20)
[2018-06-18 16:29] LABS: CALCIUM, SERUM 9.3 mg/dL (8.5-10.1); CREATININE 0.8 mg/dL (0.6-1.3); POTASSIUM 4.7 mmol/L (3.5-5.1)
[2018-06-18 16:34] LABS: ALBUMIN 3.3 g/dL (3.4-5.0); BILIRUBIN,DIRECT 0.1 mg/dL (0.0-0.2); BILIRUBIN,TOTAL 0.3 mg/dL (0.2-1.0); TOTAL PROTEIN, SERUM 7.5 g/dL (6.4-8.2)
[2018-06-18] MEDS ORDERED: PANTOPRAZOLE 40 MG VIAL IV ONE (17:00)
[2018-06-18] MEDS ORDERED: PANTOPRAZOLE 40 MG VIAL ONE (17:01)
--- NOTE | 2018-06-18 17:08 | NUR ---
DR ATKINS AT BEDSIDE
--- NOTE | 2018-06-18 17:26 | NUR ---
[facility] TRIP#[id number] ETA [id number]
--- NOTE | 2018-06-18 17:50 | NUR ---
Patient is resting comfortably in bed with eyes closed. Easily aroused. VSS
--- NOTE | 2018-06-18 19:37 | NUR ---
REPORT GIVEN TO [facility] EMT FOR TRANSPORT
--- NOTE | 2018-06-18 19:41 | NUR ---
REPORT GIVEN TO JORGE AT [facility]
--- NOTE | 2018-06-18 19:45 | NUR ---
IV removed. Catheter intact and site benign. Pressure and 4x4 applied to site. No bleeding noted. Patient discharged to home in stable condition. Written and verbal after care instructions given. Patient verbalizes understanding of instruction.
[2018-06-18 20:48] VITALS: BP 107/84
== END 2018-06-18 19:45 | disposition home or self-care (01) ==
LOC: ER 15:52
DX: D64.9 Anemia, unspecified (principal); E11.9 Type 2 diabetes mellitus without complications; Z93.0 Tracheostomy status; Z93.1 Gastrostomy status; Z79.4 Long term (current) use of insulin; Z79.899 Other long term (current) drug therapy; Z85.89 Personal history of malignant neoplasm of other organs and systems; Z85.841 Personal history of malignant neoplasm of brain; Z85.828 Personal history of other malignant neoplasm of skin
CPT/HCPCS: 36415; 80048; 80076; 85025; 85730; 86850; 93005; 96374; 99284; A4606; C9113; 86921-TC

== ENCOUNTER 2018-06-28 09:36 | Inpatient (IN) | payer OTHER ==
[~2018-06-28] VITALS: Ht 165.1 cm; Wt 70.8 kg
[~2018-06-28 09:36] MED LIST changes: +ESCI10TA GT; -FENT1PAT5 TP; -HYDR-4354 GT; -INSU100V27 SQ; +INSU100V36 SQ; +LORA0.5T GT; +NUT.237L31 GT; -NUT.237L45 GT; +OXYC10TA49 GT; +OXYC10TA49 PO; +OXYC5TAB3 GT; +OXYC5TAB3 PO; -Silver Sulfadiazine Cream TP; -TBO-300S SQ
[2018-06-28] MEDS ORDERED: LORA0.5T GT (09:55)
[2018-06-28] MEDS ORDERED: MIDO2.5T GT (09:55)
--- NOTE | 2018-06-28 09:55 | NUR ---
patient presented to the ER due to low hgb 6.3, denies any pain pain at this time. connected to the monitor. kept comfortable. on trach attached to cool aerosol. Will continue to monitor accordingly.
--- NOTE | 2018-06-28 10:14 | NUR ---
URINE COLLECTED AND SENT TO LAB.
[2018-06-28 10:17] LABS: BASOPHILS % (AUTO) 0.3 % (0.0-2.0); EOSINOPHILS % (AUTO) 1.2 % (0.0-6.0); HEMATOCRIT 22 % (39-51); LYMPHOCYTES # (AUTO) 0.6 /CMM (0.8-4.8); LYMPHOCYTES % (AUTO) 18.4 % (20.0-44.0); MEAN CORPUSCULAR HGB CONC 32 g/dl (31.0-36.0); MEAN CORPUSCULAR VOLUME 75 fL (80-96); MONOCYTES # (AUTO) 0.3 /CMM (0.1-1.30); MONOCYTES % (AUTO) 8.7 % (2.0-12.0); NEUTROPHILS # (AUTO) 2.3 /CMM (1.8-8.9); NEUTROPHILS % (AUTO) 71.4 % (43.0-81.0); PLATELET COUNT (AUTO) 166 /CMM (150-450); RED BLOOD CELL COUNT(AUTO) 2.91 MIL/uL (4.5-6.0); WHITE BLOOD COUNT (AUTO) 3.2 K/uL (4.3-11.0)
[2018-06-28 10:35] LABS: ALANINE AMINOTRANSFERASE 20 U/L (12-78); ALKALINE PHOSPHATASE 111 U/L (46-116); ASPARTATE AMINOTRANSFERASE 15 U/L (15-37); BILIRUBIN,DIRECT 0.1 mg/dL (0.0-0.2); BILIRUBIN,TOTAL 0.1 mg/dL (0.2-1.0); CALCIUM, SERUM 9.2 mg/dL (8.5-10.1); CARBON DIOXIDE 35 mmol/L (21-32); CHLORIDE 97 mmol/L (98-107); CREATININE 0.8 mg/dL (0.6-1.3); GLUCOSE 120 mg/dL (74-106); POTASSIUM 4.6 mmol/L (3.5-5.1); SODIUM SERUM 132 mmol/L (136-145); TOTAL PROTEIN, SERUM 7.1 g/dL (6.4-8.2); UREA NITROGEN, BLOOD 35 mg/dL (7-18)
[2018-06-28 10:43] LABS: APPEARANCE,URINE Clear (CLEAR); BILIRUBIN,URINE Negative (NEGATIVE); BLOOD, URINE Negative Ery/uL (NEGATIVE); COLOR,URINE Yellow (YELLOW); KETONES,URINE Negative (NEGATIVE); LEUKOCYTE ESTERASE ,URINE Negative (NEGATIVE); NITRITE, URINE Negative (NEGATIVE); PH,URINE 8.5 (5.0-8.0); PROTEIN,URINE Negative (NEGATIVE); UGLUCOSE Negative (NEGATIVE); UROBILINOGEN,URINE 0.2 EU/dL (0.2)
--- NOTE | 2018-06-28 11:01 | NUR ---
[facility] PAGED
[2018-06-28] MEDS ORDERED: HYDROCODONE/APAP 5/325MG 1 EACH TABLET PO PRN ×2 (11:30→14:15)
[2018-06-28] MEDS ORDERED: DEXTROSE 50%-WATER 50 ML DISP.SYRIN IV PRN ×2 (11:30→14:15)
[2018-06-28] MEDS ORDERED: MAG HYDROX/AL HYDROX/SIMETH 30 ML UDC PO PRN ×2 (11:30→14:15)
[2018-06-28] MEDS ORDERED: ACETAMINOPHEN 325 MG TABLET PO PRN ×2 (11:30→14:15)
[2018-06-28] MEDS ORDERED: GLUCERNA 1.2 1,000 ML BOTTLE GT SCH (11:30)
[2018-06-28] MEDS ORDERED: MAGNESIUM HYDROXIDE 30 ML UDC PO PRN ×2 (11:30→14:15)
[2018-06-28] MEDS ORDERED: Z GUARD REMEDY 2 OZ OINT TP PRN ×2 (11:30→14:15)
[2018-06-28] MEDS ORDERED: INSULIN REGULAR, HUMAN 100 UNIT/ML 3 ML VIAL SQ PRN (11:30)
[2018-06-28] MEDS ORDERED: LORAZEPAM 0.5 MG TABLET GT PRN ×2 (11:30→14:15)
[2018-06-28] MEDS ORDERED: ZOLPIDEM TARTRATE 5 MG TABLET PO PRN ×2 (11:30→14:15)
[2018-06-28] MEDS ORDERED: HYDROCODONE/APAP 10/325MG 1 EA TABLET PO PRN ×2 (11:30→14:15)
[2018-06-28] MEDS ORDERED: ONDANSETRON HCL/PF 4 MG/2 ML VIAL IVP PRN ×2 (11:30→14:15)
--- NOTE | 2018-06-28 11:57 | NUR ---
RECEIVED A CALL FROM CLINICAL PROJECT ASSISTANT, PATIENT IS GOING TO ROOM 327-2.
[2018-06-28] MEDS ORDERED: BLOOD SUGAR DIAGNOSTIC 1 EACH STRIP IN SCH (12:00)
--- NOTE | 2018-06-28 13:13 | NUR ---
CALLED [facility] AND SPOKE TO ANIYAH BARRETO AND REPORT GIVEN FOR VITO.
[2018-06-28] MEDS ORDERED: ALBUTEROL FS 2.5 MG/0.5 ML VIAL.NEB NEB SCH (13:30)
[2018-06-28] MEDS ORDERED: IPRATROPIUM NEB FS 0.5 MG/2.5 ML AMPUL.NEB IH SCH (13:30)
--- NOTE | 2018-06-28 14:11 | NUR ---
transferred patient to [facility] floor in no apparent distress noted.
[2018-06-28] MEDS ORDERED: ZOLPIDEM TARTRATE 5 MG TABLET GT PRN (15:01)
[2018-06-28] MEDS ORDERED: HYDROCODONE/APAP 5/325MG 1 EACH TABLET GT PRN (15:03)
[2018-06-28] MEDS ORDERED: MAG HYDROX/AL HYDROX/SIMETH 30 ML UDC GT PRN (15:06)
[2018-06-28] MEDS ORDERED: MAGNESIUM HYDROXIDE 30 ML UDC GT PRN (15:06)
[2018-06-28] MEDS ORDERED: ACETAMINOPHEN 650 MG/20.3 ML UDC PO PRN (15:30)
[2018-06-28] MEDS ORDERED: ACETAMINOPHEN 650 MG/20.3 ML UDC GT PRN (15:30)
[2018-06-28] MEDS: HYDROCODONE/APAP 10/325MG 1 EA TABLET GT PRN (15:42)
[2018-06-28 16:00] VITALS: BP 97/64
--- NOTE | 2018-06-28 16:13 | NUR ---
1420 ASSUMED CARE OF PATIENT. PATIENT ALERT AND ORIENTED TIMES 3. PATIENT VITALS STABLE. PATIENT HAS NO SIGNS OR SYMPTOMS OF DISTRESS AT THIS TIME. PATIENT HAS PAIN 9/10 IN THROAT AND NECK. 1530 PATIENT GIVEN NORCO 10/325MG THROUGH THE G TUBE PER DR ORDER FOR PAIN 9/10 IN NECK AND THROAT. 1620 ENDORSED PATIENT TO ESTEVAN AGUILERA.
[2018-06-28 16:27] VITALS: BP 97/64
--- NOTE | 2018-06-28 16:30 | NUR ---
MANAGER FINANCIAL SERVICES . PT TELE SR. PT WITH PORTEX 9 TRACH WITH O2 VIA COLLAR AT 9LPM HUMIDIFIED. PT WITHOUT RESP DISTRESS, SOME RHONCHI HEARD ON AUSCULTATION. PT WITH SUCTION SET UP AND SELF CARING WITH SUCTION. PT REPORTING MINOR PAIN BUT RECENTLY RECEIVED PRN FROM PRIOR NURSE. PT WITH IVC AT R AC G22 SALINE FLUSH PATENT. PT WITH G TUBE CLAMMED, DIET ORDERS ALREADY PLACED AND KITCHEN CALLED TO DELIVER. PT BRIEFED ON POC AND HANKINS ORIENTATION AND IS WITHOUT CONCERN OR COMPLAINT AT THIS TIME.
[2018-06-28] MEDS ORDERED: DOCUSATE SODIUM 100 MG CAPSULE PO SCH ×2 (17:00)
[2018-06-28] MEDS: GLUCERNA 1.2 1,000 ML BOTTLE GT SCH (17:59)
[2018-06-28] MEDS: BLOOD SUGAR DIAGNOSTIC 1 EACH STRIP IN SCH (18:12)
[2018-06-28] MEDS: DOCUSATE SODIUM LIQ 100 MG/10 ML UDC GT SCH (18:15)
--- NOTE | 2018-06-28 18:46 | NUR ---
HAT AND CAP DRYING ROOM ATTENDANT . PT TELE SR. PT TOLERATING O2 VIA COLLAR AT 9LPM WITHOUT RESP DISTRESS. PT WITH SUCTION SET UP AND SELF CARING WITH SUCTION.PT DENIES PAIN OR ANY DISCOMFORT AT THIS TIME. PT WITH IVC AT R AC G22 SL. PT WITH G TUBE INTACT AND OPERATIONAL. WITH GTF PER RX. ALL NEEDS ATTENDED. ABLE TO MAKE NEEDS KNOWN. KEPT CALL LIGHT WITHIN REACH. BED IN LOWEST, LOCKED POSITION WITH SIDE RAILS X3. WILL ENDORSE TO NEXT SHIFT NURSE TO CONTINUE PLAN OF CARE.
--- NOTE | 2018-06-28 19:30 | NUR ---
NETWORK PRICING CONSULTANT INITIAL NOTES Patient in bed, awake, A/O x3. Trach intact, to cool aerosol. Sinus rhythm, sinus tach on the tele monitor, non productive cough. Skin body assessment done, for wound consult. Abdomen presence of Gtube, gastric residual minimal amount. Hemoglobin low per report, will administer 1 unit PRBC, awaiting blood to infuse. Patient appears comfortable, denies pain, no c/o dizziness or headache. Maintained safety, will cont to monitor.
[2018-06-28] MEDS: ALBUTEROL FS 2.5 MG/0.5 ML VIAL.NEB NEB SCH (19:51)
[2018-06-28 20:00] VITALS: BP 104/69
[2018-06-28] MEDS: IPRATROPIUM NEB FS 0.5 MG/2.5 ML AMPUL.NEB IH SCH (20:03)
[2018-06-28] MEDS ORDERED: SENNOSIDES 8.6 MG TABLET GT SCH (21:00)
[2018-06-28 21:21] VITALS: BP 107/73
[2018-06-28 21:43] VITALS: BP 111/73
[2018-06-28] MEDS: SENNOSIDES 8.6 MG TABLET GT SCH (21:52)
[2018-06-28] MEDS: ESCITALOPRAM OXALATE (10 MG) 10 MG TABLET GT SCH (21:52)
[2018-06-28] MEDS ORDERED: ESCITALOPRAM OXALATE (10 MG) 10 MG TABLET GT SCH (22:00)
[2018-06-28 22:12] VITALS: BP 99/68
[2018-06-29] VITALS (7 sets, daily range): BP systolic 101–110; BP diastolic 66–71
--- NOTE | 2018-06-29 00:42 | NUR ---
Post blood transfusion, VSS, denies pain. NO chills, no shortness of breath. Will cont to monitor closely.
[2018-06-29] MEDS: BLOOD SUGAR DIAGNOSTIC 1 EACH STRIP IN SCH ×4 (00:43→17:57)
[2018-06-29] MEDS: INSULIN REGULAR, HUMAN 100 UNIT/ML 3 ML VIAL SQ PRN ×3 (00:45→17:37)
[2018-06-29] MEDS: ALBUTEROL FS 2.5 MG/0.5 ML VIAL.NEB NEB SCH ×4 (01:47→19:25)
[2018-06-29] MEDS: IPRATROPIUM NEB FS 0.5 MG/2.5 ML AMPUL.NEB IH SCH ×4 (01:47→19:25)
[2018-06-29] MEDS ORDERED: INSULIN REGULAR, HUMAN 100 UNIT/ML 3 ML VIAL ONE (05:31)
--- NOTE | 2018-06-29 06:24 | NUR ---
TUBING MACHINE TENDER CLOSING NOTES Patient in bed, slept well. Trach intact, to cool aerosol. Sinus rhythm on the tele monitor, non productive cough, moderate secretion, suction oral PRN. Currently NPO, on gtube feeding. Gtube intact, gastric residual minimal amount. Patient received 1 unit PRBC last night with no adverse side effect, denies chest pain, no chills, VSS. Awaits consult wound and PT eval. Maintained safety, will endorse to oncoming RN.
[2018-06-29] MEDS: PANTOPRAZOLE 40 MG/PACK PACK GT SCH (06:32)
[2018-06-29] MEDS ORDERED: PANTOPRAZOLE 40 MG TABLET.DR PO SCH ×2 (07:30)
--- NOTE | 2018-06-29 07:30 | NUR ---
RN MS NOTES PT IN BED, AWAKE, ALERT, ABLE TO MAKE NEEDS KNOWN, ABLE TO MOUTH WORDS, NO COMPLAINT OF PAIN, RESPIRATIONS NORMAL, GT FEEDING INFUSING WELL, TOLERATING WELL, CALL LIGHT WITHIN REACH, KEPT ELECTROCARDIOGRAPH TECHNICIAN BED.
[2018-06-29 08:42] LABS: THYROID STIMULATING HORMONE 1.775 uIU/mL (0.358-3.74)
[2018-06-29] MEDS: SENNOSIDES 8.6 MG TABLET GT SCH ×2 (08:43→20:54)
[2018-06-29] MEDS: DOCUSATE SODIUM LIQ 100 MG/10 ML UDC GT SCH ×2 (08:43→17:00)
--- NOTE | 2018-06-29 13:00 | NUR ---
RN MS NOTES PT IN BED, RESTING, PERINEAL CARE DONE NEEDED, ASSISTED IN TURNING AND REPOSITIONING, KEPT CLEAN AND DRY, CALL LIGHT WITHIN REACH.
[2018-06-29 16:01] LABS: ABG BASE EXCESS 0.8 mmol/L; ABG OXYGEN SATURATION 97.3 % (92.0-98.5); ABG PCO2 33.9 mmHg (35.0-45.0); ABG PH 7.473 (7.350-7.450); ABG PO2 100.1 mmHg (75.0-100.0); COHb 0.3 % (0.5-1.5); MetHb 0.6 % (0.0-1.5); O2Hb 96.4 % (94.0-97.0); SITE, ABG Left Radial; VENT MODE, BG COOL AEROSOL 35%
--- NOTE | 2018-06-29 17:00 | NUR ---
RN MS NOTES ALIZA HELD, PT HAD SOFT LIQUIDY BM.
[2018-06-29] MEDS: GLUCERNA 1.2 1,000 ML BOTTLE GT SCH (18:09)
--- NOTE | 2018-06-29 19:00 | NUR ---
RN MS NOTES PT IN BED, RESTING COMFORTABLY, NO COMPLAINT OF PAIN OR ANY DISCOMFORT, RESPIRATIONS NORMAL, CALL LIGHT WITHIN REACH, GT FEEDING INFUSING WELL, TOLERATING WELL, PM CARE PROVIDED, TURNED AND REPOSITIONED Q2 HOURS, ALL NEEDS ATTENDED.
--- NOTE | 2018-06-29 19:15 | NUR ---
RN NOTES RECEIVED PATIENT AWAKE, HOB ELEVATED WITH TRACH TO COOL AEROSOL AT 9LPM AND TOLERATED WELL. PATIENT IS ALERT AND ORIENTED X3, MOUTH WORDS. GT INTACT WITH ONGOING FEEDING AT 75 ML/HR AND TOLERATED WELL. IV ACCESS ON LEFT AC PATENT AND INTACT. SAFETY MEASURES AND FALL PRECAUTION IN PLACE. KEPT COMFORTABLE AND ATTENDED. WILL CONTINUE TO MONITOR PT.
[2018-06-29 20:13] LABS: CALCIUM, SERUM 8.9 mg/dL (8.5-10.1); CREATININE 0.8 mg/dL (0.6-1.3); POTASSIUM 4.5 mmol/L (3.5-5.1)
[2018-06-29 20:18] LABS: BASOPHILS % (AUTO) 0.6 % (0.0-2.0); EOSINOPHILS % (AUTO) 0.6 % (0.0-6.0); HEMATOCRIT 27 % (39-51); HEMOGLOBIN 8.6 g/dL (13.5-17.5); LYMPHOCYTES # (AUTO) 0.4 /CMM (0.8-4.8); LYMPHOCYTES % (AUTO) 14.8 % (20.0-44.0); MEAN CORPUSCULAR HGB CONC 32 g/dl (31.0-36.0); MEAN CORPUSCULAR VOLUME 77 fL (80-96); MONOCYTES # (AUTO) 0.2 /CMM (0.1-1.30); MONOCYTES % (AUTO) 6.8 % (2.0-12.0); NEUTROPHILS # (AUTO) 2.2 /CMM (1.8-8.9); NEUTROPHILS % (AUTO) 77.2 % (43.0-81.0); PLATELET COUNT (AUTO) 159 /CMM (150-450); RED BLOOD CELL COUNT(AUTO) 3.49 MIL/uL (4.5-6.0); WHITE BLOOD COUNT (AUTO) 2.9 K/uL (4.3-11.0)
[2018-06-29] MEDS: ESCITALOPRAM OXALATE (10 MG) 10 MG TABLET GT SCH (21:30)
[2018-06-30] LABS: OCCULT BLOOD STOOL NEGATIVE (NEGATIVE)
[2018-06-30] MEDS: BLOOD SUGAR DIAGNOSTIC 1 EACH STRIP IN SCH ×3 (00:32→12:14)
[2018-06-30] MEDS: INSULIN REGULAR, HUMAN 100 UNIT/ML 3 ML VIAL SQ PRN ×3 (00:34→12:14)
[2018-06-30] MEDS: IPRATROPIUM NEB FS 0.5 MG/2.5 ML AMPUL.NEB IH SCH ×3 (00:47→13:43)
[2018-06-30] MEDS: ALBUTEROL FS 2.5 MG/0.5 ML VIAL.NEB NEB SCH ×3 (00:47→13:43)
--- NOTE | 2018-06-30 06:49 | NUR ---
RN NOTES PATIENT STABLE OVERNIGHT, AFEBRILE. DENIES SOB, NO SIGNS OF DISTRESS AND DISCOMFORT NOTED. TRACH INTACT TO COOL AEROSOL AT 9L WITH GOOD SATURATION. SUCTION SECTIONS PRN. KEPT CLEAN AND DRY. FALL PRECAUTION OBSERVED. ALL NEEDS ATTENDED, WITH CALL LIGHT WITHIN REACH. WILL ENDORSE TO MORNING RN FOR CONTINUITY OF CARE.
--- NOTE | 2018-06-30 07:34 | NUR ---
RN OPENING NOTES PT WAS RECEIVED IN BED AT LOWEST AND LOCKED POSITION WITH SIDE RAILS UP X2, A/O X3, NOTED TO HAVE TRACH COLLAR TO COOL AEROSOL @ 9L, BREATHING IS EVEN AND UNLABORED, NO S/S OF PAIN OR DISTRESS NOTED, IV IS PATENT AND INTACT, SAFETY PRECAUTIONS IN PLACE, CALL LIGHT WITHIN REACH, WILL MONITOR ACCORDINGLY.
[2018-06-30] MEDS: PANTOPRAZOLE 40 MG/PACK PACK GT SCH (07:46)
[2018-06-30 08:00] VITALS: BP 117/81
[2018-06-30 08:06] LABS: BASOPHILS % (AUTO) 0.2 % (0.0-2.0); EOSINOPHILS % (AUTO) 0.3 % (0.0-6.0); HEMATOCRIT 26 % (39-51); HEMOGLOBIN 8.7 g/dL (13.5-17.5); LYMPHOCYTES # (AUTO) 0.4 /CMM (0.8-4.8); LYMPHOCYTES % (AUTO) 13.2 % (20.0-44.0); MEAN CORPUSCULAR HGB CONC 33 g/dl (31.0-36.0); MEAN CORPUSCULAR VOLUME 76 fL (80-96); MONOCYTES # (AUTO) 0.2 /CMM (0.1-1.30); MONOCYTES % (AUTO) 6.7 % (2.0-12.0); NEUTROPHILS # (AUTO) 2.7 /CMM (1.8-8.9); NEUTROPHILS % (AUTO) 79.6 % (43.0-81.0); PLATELET COUNT (AUTO) 143 /CMM (150-450); RED BLOOD CELL COUNT(AUTO) 3.47 MIL/uL (4.5-6.0); WHITE BLOOD COUNT (AUTO) 3.4 K/uL (4.3-11.0)
[2018-06-30] MEDS: DOCUSATE SODIUM LIQ 100 MG/10 ML UDC GT SCH ×2 (08:06→17:00)
[2018-06-30] MEDS: SENNOSIDES 8.6 MG TABLET GT SCH (08:06)
--- NOTE | 2018-06-30 08:07 | NUR ---
RN NOTE PT STATED AND CIRCULATING PROCESS INSPECTOR RN INFORMED THAT HE HAD 2 LOOSE BOWEL MOVEMENTS YESTERDAY. WILL HOLD OFF ON STOOL SOFTENER AND MONITOR ACCORDINGLY
[2018-06-30] MEDS: HYDROCODONE/APAP 10/325MG 1 EA TABLET GT PRN (08:17)
[2018-06-30 08:21] LABS: CALCIUM, SERUM 9.3 mg/dL (8.5-10.1); CREATININE 0.7 mg/dL (0.6-1.3); POTASSIUM 4.7 mmol/L (3.5-5.1)
--- NOTE | 2018-06-30 08:21 | NUR ---
RN NOTE PT COMPLAINED OF PAIN OF 8 OUT OF 10 AROUND HIS LEFT SIDE OF THE NECK AND FACE, NORCO 10 GIVEN AT THIS TIME, WILL MONITOR ACCORDINGLY
[2018-06-30 11:10] LABS: *SPE ALBUMIN 3.3 g/dL (2.9-4.4); *SPE ALPHA-1-GLOBULIN 0.3 g/dL (0.0-0.4); *SPE ALPHA-2-GLOBULIN 0.9 g/dL (0.4-1.0); *SPE BETA GLOBULIN 0.9 g/dL (0.7-1.3); *SPE GLOBULIN, TOTAL 3.4 g/dL (2.2-3.9); *SPE M-SPIKE 0.7 g/dL (Not Observed); *SPEGAMMA GLOBULIN 1.3 g/dL (0.4-1.8)
--- NOTE | 2018-06-30 12:04 | NUR ---
WOUND CARE CONSULT WOUND CARE RECEIVED CONSULT FOR BUTTOCKS ABRASION, G TUBE SITE REDNESS AND LEFT NECK LARGE LUMP. WOUND CARE WILL DEFER CONSULT AND ALL TREATMENT PLANS TO PLASTIC SURGICAL TEAM WHO ARE CURRENTLY FOLLOWING THIS PATIENT. PATIENT WITH MU AT 16, ALL PRESSURE ULCER PREVENTION MEASURES ARE NOTED TO BE IN PLACE. WILL SEE PRN.
--- NOTE | 2018-06-30 12:15 | NUR ---
RN NOTE PT BLOOD GLUCOSE WAS NOTED TO BE 114, NO INSULIN NEEDED OR GIVEN ACCORDING TO SLIDING SCALE, WILL MONITOR ACCORDINGLY
--- NOTE | 2018-06-30 13:00 | NUR ---
RN NOTES PHOTOS OF SKIN WOUNDS WERE TAKEN AND PLACED IN THE CHART AT THIS TIME
[2018-06-30 16:00] VITALS: BP 97/60
--- NOTE | 2018-06-30 16:39 | NUR ---
RN NOTE REPORT GIVEN TO MARIAELENA AT [facility] AT THIS TIME
--- NOTE | 2018-06-30 17:55 | NUR ---
DISCHARGE NOTE PATIENT BEING DISCHARGED TO [facility] WITH EMT CREW AT THIS TIME IN MEDICALLY STABLE CONDITION. REPORT GIVEN TO MARIAELENA AT [facility]. IV AND ID BAND WERE REMOVED. ALL DISCHARGE PAPERWORK, EXITCARE, AND BELONGINGS LIST SIGNED, DISCUSSED, AND HANDED TO THE EMT CREW. WOUND PHOTOS WERE DOCUMENTED AND PLACED IN THE CHART. BELONGINGS WERE HANDED TO THE EMT CREW. ALL NEEDS ATTENDED TO DURING HIS STAY. PT LEFT AT THIS TIME TO THE FACILITY WITH ETA OF 30 MIN.
== END 2018-06-30 18:21 | DRG 660 ==
LOC: ER 09:38 → TELE 14:45 → MED 06-29 09:53
PROVIDERS: ADMIT Nurse Practitioner Acute Care; ATTEND Nurse Practitioner Acute Care
PROC: 30233N1 Transfusion of Nonautologous Red Blood Cells into Peripheral Vein, Percutaneous Approach (ICD-10-PCS; principal; 2018-06-28)
DX: D61.810 Antineoplastic chemotherapy induced pancytopenia (principal); N17.0 Acute kidney failure with tubular necrosis; J96.12 Chronic respiratory failure with hypercapnia; L89.311 Pressure ulcer of right buttock, stage 1; E44.0 Moderate protein-calorie malnutrition; R64 Cachexia; Z93.0 Tracheostomy status; L89.322 Pressure ulcer of left buttock, stage 2; C76.0 Malignant neoplasm of head, face and neck; D64.81 Anemia due to antineoplastic chemotherapy; E87.1 Hypo-osmolality and hyponatremia; R13.10 Dysphagia, unspecified; J44.9 Chronic obstructive pulmonary disease, unspecified; J98.11 Atelectasis; Z93.1 Gastrostomy status; Z87.891 Personal history of nicotine dependence; R26.9 Unspecified abnormalities of gait and mobility; E11.9 Type 2 diabetes mellitus without complications; Z79.4 Long term (current) use of insulin; Z79.899 Other long term (current) drug therapy; L98.9 Disorder of the skin and subcutaneous tissue, unspecified; I10 Essential (primary) hypertension
CPT/HCPCS: 31720; 36415; 36600; 71045-TC; 80048-TC; 80076-TC; 81000-TC; 82272-TC; 82728-TC; 82784; 82962-TC; 83540-TC; 83605-TC; 84155; 84165; 84439-TC; 84443-TC; 84484-TC; 85025-TC; 85730-TC; 86334; 86850-TC; 86921-TC; 87040-TC; 87081-TC; 87086-TC; 94640-TC; A6402; A7526; G0378; J1815; J7050; P9016-BL

== ENCOUNTER 2018-07-19 10:47 | Emergency (ER) | payer OTHER ==
[~2018-07-19] VITALS: Ht 165.1 cm; Wt 53.5 kg
[~2018-07-19 10:47] MED LIST changes: +MIDO2.5T GT; -MULT9LIQ6 GT; -OXYC5TAB3 GT; -OXYC5TAB3 PO
--- NOTE | 2018-07-19 10:55 | NUR ---
PT SEEN AND EXAMINED BY DR. BORJAS.
[2018-07-19] MEDS ORDERED: AMIN30LI27 GT (10:59)
[2018-07-19] MEDS ORDERED: VIT500LI GT (10:59)
--- NOTE | 2018-07-19 10:59 | NUR ---
BIBPA, FROM [facility] ABNORMAL LAB Hgb 6.5. PT ON 3L O2 TRACH, G TUBE INTACT, CLEAN, NO PAIN AXOX4, WOUND L SIDE OF NECK , CANCEROUS TUMOR. PT COMFORTABLE AND STABLE
[2018-07-19] MEDS ORDERED: ALLA266C2 TP (11:00)
--- NOTE | 2018-07-19 11:00 | NUR ---
IV LINE ESTABLISHED, LABS DRAWNED AND SENT TO LAB.
[2018-07-19 11:05] VITALS: BP 109/68
[2018-07-19 11:07] LABS: BASOPHILS % (AUTO) 0.3 % (0.0-2.0); HEMATOCRIT 24 % (39-51); HEMOGLOBIN 7.6 g/dL (13.5-17.5); LYMPHOCYTES # (AUTO) 0.5 /CMM (0.8-4.8); LYMPHOCYTES % (AUTO) 12.9 % (20.0-44.0); MEAN CORPUSCULAR HGB CONC 32 g/dl (31.0-36.0); MEAN CORPUSCULAR VOLUME 76 fL (80-96); MONOCYTES # (AUTO) 0.6 /CMM (0.1-1.30); MONOCYTES % (AUTO) 15.8 % (2.0-12.0); NEUTROPHILS # (AUTO) 2.7 /CMM (1.8-8.9); PLATELET COUNT (AUTO) 223 /CMM (150-450); RED BLOOD CELL COUNT(AUTO) 3.11 MIL/uL (4.5-6.0); WHITE BLOOD COUNT (AUTO) 3.9 K/uL (4.3-11.0)
[2018-07-19 11:11] LABS: CALCIUM, SERUM 9.2 mg/dL (8.5-10.1); CREATININE 0.9 mg/dL (0.6-1.3); POTASSIUM 4.6 mmol/L (3.5-5.1)
--- NOTE | 2018-07-19 11:18 | NUR ---
HGB 7.6 DR BORJAS AWARE
--- NOTE | 2018-07-19 11:25 | NUR ---
[facility] CALLED FOR BLS TRANSPORT BACK TO SNF. ETA 1200 TRIP #[id number]
== END 2018-07-19 12:43 ==
LOC: ER 10:47
DX: D64.9 Anemia, unspecified (principal); I10 Essential (primary) hypertension; E11.9 Type 2 diabetes mellitus without complications; Z93.0 Tracheostomy status; Z93.1 Gastrostomy status; Z79.4 Long term (current) use of insulin; Z79.899 Other long term (current) drug therapy; Z85.850 Personal history of malignant neoplasm of thyroid
CPT/HCPCS: 36415; 80048-TC; 85025-TC; 86850-TC

== ENCOUNTER 2019-01-19 12:09 | Inpatient (IN) | payer OTHER ==
[~2019-01-19] VITALS: Ht 165.1 cm; Wt 53.5 kg
[~2019-01-19 12:09] MED LIST changes: +AMIN30LI27 GT; +VIT500LI GT
[2019-01-19] MEDS ORDERED: MULT-439 PO (12:29)
[2019-01-19] MEDS ORDERED: FENTANYL PATCH TP (12:29)
[2019-01-19] MEDS ORDERED: CRAN400C PO (12:29)
[2019-01-19] MEDS ORDERED: INSU100I26 SQ (12:29)
--- NOTE | 2019-01-19 12:35 | NUR ---
SENT BY PMD FOR ASYMPTOMATIC ANEMIA, HEMOGLOBIN 6.7. PT AAOX3, DENIES CP, SOB, DIZZINESS, N/V @ THIS TIME. SEEN & EVAL'D BY DR. LAIRD. WILL CONT TO MONITOR.
[2019-01-19 12:36] LABS: BASOPHILS % (AUTO) 0.3 % (0.0-2.0); EOSINOPHILS % (AUTO) 0.7 % (0.0-6.0); HEMATOCRIT 24 % (39-51); HEMOGLOBIN 7.5 g/dL (13.5-17.5); LYMPHOCYTES # (AUTO) 0.4 /CMM (0.8-4.8); LYMPHOCYTES % (AUTO) 4.4 % (20.0-44.0); MEAN CORPUSCULAR HGB CONC 31 g/dl (31.0-36.0); MEAN CORPUSCULAR VOLUME 72 fL (80-96); MONOCYTES # (AUTO) 0.7 /CMM (0.1-1.30); NEUTROPHILS # (AUTO) 7.8 /CMM (1.8-8.9); NEUTROPHILS % (AUTO) 86.6 % (43.0-81.0); PLATELET COUNT (AUTO) 359 /CMM (150-450); RED BLOOD CELL COUNT(AUTO) 3.35 MIL/uL (4.5-6.0); WHITE BLOOD COUNT (AUTO) 9.1 K/uL (4.3-11.0)
[2019-01-19 12:41] LABS: CALCIUM, SERUM 9.4 mg/dL (8.5-10.1); CREATININE 0.9 mg/dL (0.6-1.3)
--- NOTE | 2019-01-19 13:50 | NUR ---
called [facility] for admission
[2019-01-19 14:16] LABS: OCCULT BLOOD STOOL NEGATIVE (NEGATIVE)
--- NOTE | 2019-01-19 15:01 | NUR ---
REPORT GIVEN TO ESTEVAN GALLEGOS FOR [facility]
[2019-01-19] MEDS ORDERED: DEXTROSE 50%-WATER 50 ML DISP.SYRIN IV PRN (16:00)
[2019-01-19] MEDS ORDERED: ACETAMINOPHEN 325 MG TABLET PO PRN (16:00)
[2019-01-19] MEDS ORDERED: HYDROCODONE/APAP 5/325MG 1 EACH TABLET PO PRN (16:00)
[2019-01-19] MEDS ORDERED: MAG HYDROX/AL HYDROX/SIMETH 30 ML UDC PO PRN (16:00)
[2019-01-19] MEDS ORDERED: Z GUARD REMEDY 2 OZ OINT TP PRN (16:00)
[2019-01-19] MEDS ORDERED: MAGNESIUM HYDROXIDE 30 ML UDC PO PRN (16:00)
[2019-01-19] MEDS ORDERED: ONDANSETRON HCL/PF 4 MG/2 ML VIAL IVP PRN (16:00)
[2019-01-19] MEDS ORDERED: ZOLPIDEM TARTRATE 5 MG TABLET PO PRN (16:00)
--- NOTE | 2019-01-19 16:10 | NUR ---
MS RN RECEIVED A NEW ADMISSION FROM ER. CAME IN W/ DX OF ANEMIA, AWAKE,ALERT,ORIENTED X3,NOT IN ANY FORM OF DISTRESS,TRACH INTACT CONNECTED TO AEROSOL, WILL MONITOR PATIENT'S CONDITION.
[2019-01-19 16:15] VITALS: BP 99/63
--- NOTE | 2019-01-19 17:00 | NUR ---
MS ESTEVAN WAS SEEN BY DEDE Leonard/ ORDERS MADE AND CARRIED OUT.
--- NOTE | 2019-01-19 17:30 | NUR ---
MS ESTEVAN SMITH TEXTED DEDE IF HE WANTS BLOOD TRANSFUSION, SAID OK TO TRANSFUSE I UNIT NOW.
--- NOTE | 2019-01-19 18:26 | NUR ---
MS RN ON BED, NO DISTRESS NOTED,ALL NEEDS ATTENDED.
[2019-01-19] MEDS: IV NS 0.9% 1,000 ML IV PRN (18:52)
[2019-01-19] MEDS: BLOOD SUGAR DIAGNOSTIC 1 EACH STRIP IN SCH ×2 (18:52→21:25)
[2019-01-19] MEDS ORDERED: GLUCERNA 1.2 1,000 ML BOTTLE NG PRN (19:00)
[2019-01-19] MEDS ORDERED: ALBUTEROL FS 2.5 MG/0.5 ML VIAL.NEB NEB PRN (19:30)
[2019-01-19] MEDS ORDERED: NA PHOS,M-B/NA PHOS,DI-BA 1 EA ENEMA RC PRN (19:30)
[2019-01-19] MEDS ORDERED: ACETAMINOPHEN 160 MG/5 ML GT PRN (19:30)
[2019-01-19] MEDS ORDERED: BISACODYL SUPP (10 MG) 10 MG/SUPP.RECT SUPP.RECT RC PRN (19:30)
[2019-01-19] MEDS ORDERED: IPRATROPIUM NEB FS 0.5 MG/2.5 ML AMPUL.NEB IH PRN (19:30)
--- NOTE | 2019-01-19 19:30 | NUR ---
DRYING RACK CHANGER NOTES RECEIVED ON LEFT SIDE POSITION,A/O X3,BREATHING NON LABORED,ON T-PIECE AT 5L/NC,O2 SAT 100%.WITH IVF NS AT 75ML/HR RATE IN PROGRESS VIA IV PUMP ON RIGHT AC.WITH GT TUBE,REDNESS NOTED ON SITE.WILL STAR FEEDING ORDERED.CALL LIGHT IN REACH,NEEDS ANTICIPATED.
[2019-01-19 20:00] VITALS: BP 102/72
[2019-01-19 20:45] VITALS: BP 102/72
--- NOTE | 2019-01-19 20:46 | NUR ---
MUNICIPAL FIREFIGHTER NOTES H/H 7.5/, AT THE FACILITY WAS 6.8.PER MD TO GIVEN 1 UNIT OF PRBC,STARTED THIS TIME.VITAL ISGNS WITH IN NORMAL LIMITS
--- NOTE | 2019-01-19 21:00 | NUR ---
EVAPORATIVE COOLER INSTALLER NOTES RT AT BEDSIDE.PLACE TRACH TO COOL AEROSOL 28% AT 5L,TOLERATED WELL.
[2019-01-19] MEDS: ALBUTEROL FS 2.5 MG/0.5 ML VIAL.NEB NEB SCH (21:21)
[2019-01-19] MEDS: IPRATROPIUM NEB FS 0.5 MG/2.5 ML AMPUL.NEB IH SCH (21:21)
[2019-01-19] MEDS: SENNOSIDES 8.6 MG TABLET GT SCH (21:24)
[2019-01-19] MEDS: ESCITALOPRAM OXALATE (10 MG) 10 MG TABLET GT SCH (21:24)
[2019-01-19] MEDS: DOCUSATE SODIUM LIQ 100 MG/10 ML UDC GT SCH (21:24)
[2019-01-19] MEDS: INSULIN GLARGINE, 100 UNIT/ML CARTRIDGE SQ SCH (21:38)
[2019-01-19] MEDS: INSULIN REGULAR, HUMAN 100 UNIT/ML 3 ML VIAL SQ PRN (21:38)
--- NOTE | 2019-01-19 22:00 | NUR ---
MORTGAGE BRANCH MANAGER NOTES ACCU-CHECK BLOOD SUGAR CHECK 141,2 UNITS HUMULIN R REFUSED ALONG WITH LANTUS 12 UNITS Q HS.GT FEEDING NOT STARTED YET.
--- NOTE | 2019-01-19 22:19 | NUR ---
PUBLIC HEALTH NURSE NOTES STARTED ON GLUCERNA 1.2 AT 75ML/HR RATE X 20 HOURS REPORTED BY ROSY RN.
[2019-01-19 22:30] VITALS: BP 117/80
[2019-01-19] MEDS: oxyCODONE/APAP (5/325 MG) 1 UDTAB TABLET PO PRN (23:26)
--- NOTE | 2019-01-19 23:26 | NUR ---
WORKERS COMPENSATION CLAIMS SUPERVISOR NOTES PAIN MANAGEMENT C/O RIGHT SHOULDER PAIN 4/10 ON PAIN SCALE.MEDICATED WITH PERCOCET 1 TAB,GIVEN VIA GT.
[2019-01-20] VITALS (9 sets, daily range): BP systolic 99–119; BP diastolic 63–79
--- NOTE | 2019-01-20 00:22 | NUR ---
JOB FORWARDER NOTES BLOOD TRANSFUSION COMPLETED,NO ADVERSE REACTION NOTED.
[2019-01-20] MEDS: ALBUTEROL FS 2.5 MG/0.5 ML VIAL.NEB NEB SCH ×5 (01:21→19:36)
[2019-01-20] MEDS: IPRATROPIUM NEB FS 0.5 MG/2.5 ML AMPUL.NEB IH SCH ×5 (01:21→19:36)
--- NOTE | 2019-01-20 04:30 | NUR ---
LEATHER GRADER NOTES MORNING CARE RENDERED,DRESSING CHANGE DONE ON LEFT SHOULDER WOUND,TRACH SITE AND GT SITE.
--- NOTE | 2019-01-20 05:45 | NUR ---
DORMITORY KEEPER NOTES ACCU-CHECK BLOOD SUGAR CHECK 213,COVERED WITH HUMULIN R 4 UNITS PER SLIDING SCALE.GT FEEDING IN PROGRESS.
[2019-01-20] MEDS: BLOOD SUGAR DIAGNOSTIC 1 EACH STRIP IN SCH ×4 (06:01→21:50)
[2019-01-20] MEDS: INSULIN REGULAR, HUMAN 100 UNIT/ML 3 ML VIAL SQ PRN ×4 (06:08→22:25)
[2019-01-20 06:24] LABS: ALBUMIN 2.7 g/dL (3.4-5.0); BILIRUBIN,TOTAL 0.3 mg/dL (0.2-1.0); CALCIUM, SERUM 8.9 mg/dL (8.5-10.1); CREATININE 0.9 mg/dL (0.6-1.3); MAGNESIUM 1.9 mg/dL (1.8-2.4); POTASSIUM 4.4 mmol/L (3.5-5.1); TOTAL PROTEIN, SERUM 7.8 g/dL (6.4-8.2)
[2019-01-20 06:27] LABS: BASOPHILS % (AUTO) 0.2 % (0.0-2.0); EOSINOPHILS % (AUTO) 1.3 % (0.0-6.0); HEMATOCRIT 28 % (39-51); HEMOGLOBIN 8.8 g/dL (13.5-17.5); LYMPHOCYTES # (AUTO) 0.7 /CMM (0.8-4.8); LYMPHOCYTES % (AUTO) 9.1 % (20.0-44.0); MEAN CORPUSCULAR HGB CONC 32 g/dl (31.0-36.0); MEAN CORPUSCULAR VOLUME 75 fL (80-96); MONOCYTES # (AUTO) 0.9 /CMM (0.1-1.30); NEUTROPHILS # (AUTO) 6.2 /CMM (1.8-8.9); NEUTROPHILS % (AUTO) 78.4 % (43.0-81.0); PLATELET COUNT (AUTO) 355 /CMM (150-450); RED BLOOD CELL COUNT(AUTO) 3.68 MIL/uL (4.5-6.0); WHITE BLOOD COUNT (AUTO) 7.8 K/uL (4.3-11.0)
[2019-01-20 06:32] LABS: THYROID STIMULATING HORMONE 3.164 uIU/mL (0.358-3.74)
--- NOTE | 2019-01-20 06:49 | NUR ---
UTILITY INSPECTOR NOTES FAIRLY RESTED,ENCOURAGED TO LYE ON HIS RIGHT SIDE TO PREVENT DEPENDENT LEFT FACIAL EDEMA.GT FEEDING TOLERATED WELL,10 CC RESIDUAL AT THIS TIME.IVF IN PROGRESS ON RIGHT AC.SITE REMAINS PATENT.PAIN MANAGEMENT EFFECTIVE.TRACH SUCTION OFTEN FOR LOTS OF MUCUS.PATIENT ABLE TO SPIT UP.IN NO ACUTE DISTRESS.CALL LIGHT IN REACH,NEEDS ATTENDED.WILL ENDORSE TO DAY NURSE FOR VITO.
[2019-01-20] MEDS: DOCUSATE SODIUM LIQ 100 MG/10 ML UDC GT SCH ×2 (08:24→21:49)
[2019-01-20] MEDS: FAMOTIDINE (20 MG) 20 MG TABLET GT SCH (08:24)
[2019-01-20] MEDS: SENNOSIDES 8.6 MG TABLET GT SCH ×2 (08:25→21:49)
[2019-01-20] MEDS: MIDODRINE HCL (5MG) 5 MG TABLET GT SCH ×2 (08:25→17:53)
[2019-01-20] MEDS ORDERED: MIDODRINE HCL 2.5 MG TABLET GT SCH (09:00)
--- NOTE | 2019-01-20 09:16 | NUR ---
RT NOTE PT REC'D ON T MASK. NO SOB NOTED AT THIS TIME. TRACH TUBE PATENT AND SECURE. BVM AND BACK UP TRACH AT HOB. Addendum: 01/20/19 at 0917 by KELLE BHATTI RT Amended: Links added.
[2019-01-20] MEDS: DAKINS QUARTER STRENGTH (0.125%) 480 ML BOTTLE TOP SCH (13:49)
[2019-01-20] MEDS: NEOMY SULF/BACITRAC ZN/POLY 15 GM TUBE TP SCH (13:50)
[2019-01-20] MEDS: GLUCERNA 1.2 1,000 ML BOTTLE NG PRN (13:50)
[2019-01-20] MEDS: PROSOURCE / PROSTAT (PYXIS) 30 ML UDC GT SCH (17:57)
[2019-01-20] MEDS ORDERED: VITS A AND D/WHITE PET/LANOLIN 5 GM PACKET TP PRN (18:00)
--- NOTE | 2019-01-20 18:59 | NUR ---
NETWORK COMMUNICATIONS ENGINEER SHIFT SUMMARY PATIENT A/OX4, ABLE TO MOUTH WORDS. TRACH ATTACHED TO 5L COOL AEROSOL. NO ACUTE DISTRESS OR SOB NTOED. PATIENT NOTED TO HAVE COPIOUS SECRETIONS, SUCTIONED BY RT PRN. TRACH TIE + INNER CANNULA CHANGED. TELE MONITOR ATTACHED, SINUS TACHY HR 116-130 THIS SHIFT, DR. GOLDSMITH AWARE. URINE OUTPUT 750mL VIA URINAL, 1 BOWEL MOVEMENT THIS SHIFT. WOUND CARE COMPLETED ORDERED. GTF RUNNING ORDERED- NO RESIDUAL NOTED. WILL ENDORSE TO NOC RN
--- NOTE | 2019-01-20 19:30 | NUR ---
LUMBER TRIPPER NOTES RECEIVED RESTING COMFORTABLY ON BED,A/O X4,ON TRACH TO COOL AEROSOL 28% 5L.98% O2 SAT.SUCTION SELF ORALLY.GT FEEDING OF GLUCERNA 12. AT 65ML/HR RATE IN PROGRESS,TOLERATED WELL.NO RESIDUAL AT THE MOMENT.NO IV ACCESS.WILL PUT A NEW ONE.GT SITE REDNESS SUBSIDING.DRESSING TO HEAD/NECK INTACT AND DRY.LEFT SIDE OF FACE STILL PUFFY.ENCOURAGED TO LAY DOWN ON RIGHT SIDE.DVT JAIL OFFICER IN USED FOR DVT PROPHYLAXIS.CALL LIGHT IN REACH,NEEDS ANTICIPATED.
[2019-01-20] MEDS ORDERED: VITAMINS A AND D 56.7 GM TUBE TP PRN (20:00)
--- NOTE | 2019-01-20 20:00 | NUR ---
OYSTERMAN NOTES NEW SALINE LOCK PLACE ON RIGHT HAND #20,IVF NS 1LITER RE STARTED AT SAME RATE.
[2019-01-20] MEDS: ESCITALOPRAM OXALATE (10 MG) 10 MG TABLET GT SCH (21:49)
--- NOTE | 2019-01-20 22:00 | NUR ---
EXERCISE INSTRUCT NOTES ACCU-CHECK BLOOD SUGAR CHECK 187MG/DL. HUMULIN R 3 UNITS PER SLIDING SCALE GIVEN,ALONG WITH LANTUS 12 UNITS SCHEDULED HS. GT FEEDING PROGRESS TOLERATED WELL.
[2019-01-20] MEDS: oxyCODONE/APAP (5/325 MG) 1 UDTAB TABLET PO PRN (22:18)
--- NOTE | 2019-01-20 22:18 | NUR ---
DIETARY DIRECTOR NOTES PAIN MANAGEMENT C/O NECK PAIN 7/10 ON PAIN SCALE,MEDICATED WITH PERCOCET 5/325MG,1 TAB PER GT GIVEN ORDERED.
[2019-01-20] MEDS: INSULIN GLARGINE, 100 UNIT/ML CARTRIDGE SQ SCH (22:22)
[2019-01-21] VITALS: BP 109/63
[2019-01-21] MEDS: ALBUTEROL FS 2.5 MG/0.5 ML VIAL.NEB NEB SCH ×4 (01:05→19:40)
[2019-01-21] MEDS: IPRATROPIUM NEB FS 0.5 MG/2.5 ML AMPUL.NEB IH SCH ×4 (01:05→19:40)
[2019-01-21 04:00] VITALS: BP 108/69
--- NOTE | 2019-01-21 05:30 | NUR ---
EXPLORATION GEOLOGIST NOTES ACCU-CHECK BLOOD SUGAR CHECK 211,COVERED WITH HUMULIN R 4 UNITS PER SLIDING SCALE.
[2019-01-21] MEDS: BLOOD SUGAR DIAGNOSTIC 1 EACH STRIP IN SCH ×4 (05:50→22:50)
--- NOTE | 2019-01-21 06:00 | NUR ---
INGOT SUPERVISOR NOTES MORNING CARE RENDERED.DRESSING CHANGE DONE ON LEFT NECK/HEAD WOUND WITH DAKINS SOLUTIONS.
[2019-01-21] MEDS: INSULIN REGULAR, HUMAN 100 UNIT/ML 3 ML VIAL SQ PRN ×3 (06:03→22:58)
[2019-01-21] MEDS: IV NS 0.9% 1,000 ML IV PRN (06:14)
--- NOTE | 2019-01-21 06:27 | NUR ---
CONTINUOUS WASHER OPERATOR NOTES NO SIGNIFICANT CHANGE IN STATUS.GT FEEDING TOLERATED WELL.ZERO RESIDUAL VOLUME.NO NAUSEA,VOMITING NOTED.PAIN MANAGEMENT EFFECTIVE.IN NO ACUTE DISTRESS.WILL ENDORSE TO DAY NURSE FOR VITO.
[2019-01-21 07:06] LABS: BASOPHILS % (AUTO) 0.1 % (0.0-2.0); EOSINOPHILS % (AUTO) 0.9 % (0.0-6.0); HEMATOCRIT 26 % (39-51); HEMOGLOBIN 8.4 g/dL (13.5-17.5); LYMPHOCYTES # (AUTO) 0.5 /CMM (0.8-4.8); LYMPHOCYTES % (AUTO) 5.5 % (20.0-44.0); MEAN CORPUSCULAR HGB CONC 32 g/dl (31.0-36.0); MEAN CORPUSCULAR VOLUME 75 fL (80-96); MONOCYTES # (AUTO) 0.7 /CMM (0.1-1.30); MONOCYTES % (AUTO) 8.7 % (2.0-12.0); NEUTROPHILS # (AUTO) 7.2 /CMM (1.8-8.9); NEUTROPHILS % (AUTO) 84.8 % (43.0-81.0); PLATELET COUNT (AUTO) 315 /CMM (150-450); WHITE BLOOD COUNT (AUTO) 8.5 K/uL (4.3-11.0)
--- NOTE | 2019-01-21 07:15 | NUR ---
CUSTOMER SERVICE CASHIER OPENING NOTES RECEIVED PT IN BED, AWAKE. ON TPIECE PORTEX 9, COOL AEROSOL 28% AT 5L OXYGEN, WITH NO ACUTE RESPIRATORY DISTRESS. PT DENIES ANY PAIN OR DISCOMFORT AT THIS TIME. ON TELEMONITORING, ST AT 120S, PER SHAREPOINT SOLUTIONS DEVELOPER PT HAS BEEN ST AND ASYMPTOMATIC. PT ON GT FEEDING GLUCERNA AT 65ML/HR, INTACT AND INFUSING WELL; NO RESIDUALS PRESENT. PT ABLE TO RESPOND BY NODDING HIS HEAD. IVF NS AT 75 ML/HR TO RIGHT HAND G20, INTACT AND FLUID INFUSING WELL. PT KEPT COMFORTABLE, CLEAN AND DRY. CALL LIGHT KEPT WITHIN REACH. HOB ELEVATED. PT'S BED IN LOWEST, LOCKED POSITION WITH SR X3. WILL CONTINUE PLAN OF CARE.
[2019-01-21 07:30] VITALS: BP 106/59
[2019-01-21 07:39] LABS: CALCIUM, SERUM 9.2 mg/dL (8.5-10.1); CREATININE 0.8 mg/dL (0.6-1.3); MAGNESIUM 2.1 mg/dL (1.8-2.4); POTASSIUM 4.4 mmol/L (3.5-5.1)
[2019-01-21] MEDS: SENNOSIDES 8.6 MG TABLET GT SCH ×2 (08:24→21:30)
[2019-01-21] MEDS: FAMOTIDINE (20 MG) 20 MG TABLET GT SCH (08:24)
[2019-01-21] MEDS: DOCUSATE SODIUM LIQ 100 MG/10 ML UDC GT SCH ×2 (08:24→21:30)
[2019-01-21] MEDS: MIDODRINE HCL (5MG) 5 MG TABLET GT SCH ×2 (08:24→16:32)
[2019-01-21] MEDS: GLUCERNA 1.2 1,000 ML BOTTLE NG PRN (08:42)
[2019-01-21] MEDS: DAKINS QUARTER STRENGTH (0.125%) 480 ML BOTTLE TOP SCH (08:48)
--- NOTE | 2019-01-21 10:39 | NUR ---
WOUND CARE CONSULT WOUND CARE RECEIVED CONSULT FOR MASD PEG SITE AND LEFT SHOULDER WOUND. WOUND CARE WILL DEFER CONSULT AND TREATMENT PLANS TO PLASTIC SURGICAL TEAM WHO ARE CURRENTLY FOLLOWING THIS PATIENT. PATIENT WITH MU AT 14, ALL PRESSURE ULCER PREVENTION MEASURES ARE NOTED TO BE IN PLACE AT THIS TIME. WILL SEE PRN.
--- NOTE | 2019-01-21 14:55 | NUR ---
pt not ready for ct, nurse will call back when ready.
[2019-01-21] MEDS ORDERED: CT SWABBABLE VALVE TRANS SET 1 EA INFUS.SET MC ONE (15:44)
[2019-01-21] MEDS ORDERED: IOHEXOL-300 100 ML VIAL IV ONE (15:44)
[2019-01-21] MEDS ORDERED: IV NS 0.9% 250 ML IV ONE (15:44)
[2019-01-21 16:00] VITALS: BP 126/81
--- NOTE | 2019-01-21 17:10 | NUR ---
RT Pt rc'd trach'd and on cool aerosol on ordered settings. Pt is stable. No respiratory distress noted t/o shift. Addendum: 01/21/19 at 1733 by DONOVAN GOMEZ RT Amended: Links added.
--- NOTE | 2019-01-21 17:38 | NUR ---
MS RN NOTES PA/KF MADE AWARE OF CT OF HEAD AND NECK. NO NEW ORDERS FOR NOW. WILL ENDORSE TO INCOMING NURSE WELL.
[2019-01-21] MEDS: PROSOURCE / PROSTAT (PYXIS) 30 ML UDC GT SCH (18:04)
--- NOTE | 2019-01-21 18:24 | NUR ---
MS RN OPENING NOTES PT IN BED, AWAKE, A/O X3-4. ON T-PIECE PORTEX 9, COOL AEROSOL 28% AT 5L OXYGEN, WITH NO ACUTE RESPIRATORY DISTRESS. PT DENIES ANY PAIN OR DISCOMFORT AT THIS TIME. PT ON GT FEEDING GLUCERNA AT 65ML/HR, INTACT AND INFUSING WELL; NO RESIDUALS PRESENT. PT ABLE TO RESPOND BY NODDING HIS HEAD. IVF NS AT 75 ML/HR TO RIGHT HAND G20, INTACT AND FLUID INFUSING WELL. ALL NEEDS AND CARE ATTENDED AND PROVIDED. PT KEPT COMFORTABLE, CLEAN AND DRY. CALL LIGHT KEPT WITHIN REACH. HOB ELEVATED. PT'S BED IN LOWEST, LOCKED POSITION WITH SR X3. WILL ENDORSE TO INCOMING NIGHT NURSE FOR V[facility]O. Addendum: 01/21/19 at 1825 by MOOSE JONES RN THIS NOTE IS CLOSING NOTE. NOT OPENING.
--- NOTE | 2019-01-21 19:40 | NUR ---
MS RN NOTES RECEIVED PATIENT IN BED, AWAKE, ALERT ORIENTED X3-4. ON T-PIECE PORTEX 9, COOL AEROSOL 28% AT 5L OXYGEN, WITH NO ACUTE RESPIRATORY DISTRESS. PATIENT DENIES ANY PAIN OR DISCOMFORT AT THIS TIME. PATIENT IS ON GT FEEDING GLUCERNA AT 65ML/HR, INTACT AND INFUSING WELL; NO RESIDUALS PRESENT. PATIENT ABLE TO RESPOND BY NODDING HIS HEAD. IVF NS AT 75 ML/HR TO RIGHT HAND G20, INTACT, PATENT, AND INFUSING WELL. ALL NEEDS AND CARE ATTENDED AND PROVIDED. KEPT COMFORTABLE, CLEAN AND DRY. SAFETY MEASURES IN PLACE, ASPIRATION PRECAUTION EMPHASIZE, CALL LIGHT KEPT WITHIN REACH. HOB ELEVATED. PT'S BED IN LOWEST, LOCKED POSITION WITH SR X3. WILL CONTINUE TO MONITOR ACCORDINGLY.
[2019-01-21 20:00] VITALS: BP 127/70
[2019-01-21 20:11] VITALS: BP 127/70
[2019-01-21] MEDS: ESCITALOPRAM OXALATE (10 MG) 10 MG TABLET GT SCH (21:30)
[2019-01-21] MEDS: INSULIN GLARGINE, 100 UNIT/ML CARTRIDGE SQ SCH (22:57)
[2019-01-22] MEDS: ALBUTEROL FS 2.5 MG/0.5 ML VIAL.NEB NEB SCH ×4 (01:37→19:39)
[2019-01-22] MEDS: IPRATROPIUM NEB FS 0.5 MG/2.5 ML AMPUL.NEB IH SCH ×4 (01:37→19:39)
[2019-01-22] MEDS: oxyCODONE/APAP (5/325 MG) 1 UDTAB TABLET PO PRN (03:45)
[2019-01-22] MEDS: IV NS 0.9% 1,000 ML IV PRN ×2 (04:34→22:34)
[2019-01-22] MEDS: oxyCODONE IR immediate release 5 MG GT PRN ×3 (04:51→23:16)
[2019-01-22 06:25] LABS: BASOPHILS % (AUTO) 0.2 % (0.0-2.0); EOSINOPHILS % (AUTO) 0.5 % (0.0-6.0); HEMATOCRIT 26 % (39-51); HEMOGLOBIN 8.4 g/dL (13.5-17.5); LYMPHOCYTES # (AUTO) 0.4 /CMM (0.8-4.8); LYMPHOCYTES % (AUTO) 5.5 % (20.0-44.0); MEAN CORPUSCULAR HGB CONC 32 g/dl (31.0-36.0); MEAN CORPUSCULAR VOLUME 75 fL (80-96); MONOCYTES # (AUTO) 0.8 /CMM (0.1-1.30); MONOCYTES % (AUTO) 10.8 % (2.0-12.0); NEUTROPHILS # (AUTO) 6.1 /CMM (1.8-8.9); PLATELET COUNT (AUTO) 317 /CMM (150-450); WHITE BLOOD COUNT (AUTO) 7.3 K/uL (4.3-11.0)
[2019-01-22 06:40] LABS: CREATININE 0.8 mg/dL (0.6-1.3); POTASSIUM 4.2 mmol/L (3.5-5.1)
[2019-01-22] MEDS: BLOOD SUGAR DIAGNOSTIC 1 EACH STRIP IN SCH ×4 (06:43→22:29)
[2019-01-22] MEDS: INSULIN REGULAR, HUMAN 100 UNIT/ML 3 ML VIAL SQ PRN ×4 (06:45→22:36)
--- NOTE | 2019-01-22 07:00 | NUR ---
MS RN NOTES PATIENT ABLE TO REST AND SLEEP AT INTERVALS, IN BED, AWAKE, ALERT ORIENTED X3-4. ON T-PIECE PORTEX 9, COOL AEROSOL 28% AT 5L OXYGEN, WITH NO ACUTE RESPIRATORY DISTRESS. PATIENT DENIES ANY PAIN OR DISCOMFORT AT THIS TIME. PATIENT IS ON GT FEEDING GLUCERNA AT 65ML/HR, INTACT AND INFUSING WELL; NO RESIDUALS PRESENT. PATIENT ABLE TO RESPOND BY NODDING HIS HEAD. IVF NS AT 75 ML/HR TO RIGHT HAND G20, INTACT, PATENT, AND INFUSING WELL. ALL NEEDS AND CARE ATTENDED AND PROVIDED. WOUND DRESSING CHANGED ORDERED, KEPT COMFORTABLE, CLEAN AND DRY. SAFETY MEASURES IN PLACE, ASPIRATION PRECAUTION EMPHASIZE, CALL LIGHT KEPT WITHIN REACH. HOB ELEVATED. PT'S BED IN LOWEST, LOCKED POSITION WITH SR X3. WILL ENDORSE TO AM NURSE FOR CONTINUITY OF CARE.
--- NOTE | 2019-01-22 07:10 | NUR ---
MS RN OPENING NOTES RECEIVED PATIENT IN BED, AWAKE, ALERT ORIENTED X 3-4. ON T-PIECE PORTEX 9, COOL AEROSOL 28% AT 5L OXYGEN, WITH NO ACUTE RESPIRATORY DISTRESS. PATIENT DENIES ANY PAIN OR DISCOMFORT AT THIS TIME. PATIENT IS ON GT FEEDING GLUCERNA AT 65ML/HR, INTACT AND INFUSING WELL; NO RESIDUALS PRESENT. PATIENT ABLE TO RESPOND BY NODDING HIS HEAD. IVF NS AT 75 ML/HR TO RIGHT HAND G20, INTACT, PATENT, AND INFUSING WELL. SAFETY MEASURES IN PLACE, ASPIRATION PRECAUTION EMPHASIZE, CALL LIGHT KEPT WITHIN REACH. HOB ELEVATED. PT'S BED IN LOWEST, LOCKED POSITION WITH SR X3. WILL CONTINUE TO MONITOR.
[2019-01-22 08:00] VITALS: BP 101/65
[2019-01-22] MEDS: DOCUSATE SODIUM LIQ 100 MG/10 ML UDC GT SCH ×2 (08:14→21:25)
[2019-01-22] MEDS: MIDODRINE HCL (5MG) 5 MG TABLET GT SCH ×2 (08:15→16:15)
[2019-01-22] MEDS: FAMOTIDINE (20 MG) 20 MG TABLET GT SCH (08:15)
[2019-01-22] MEDS: SENNOSIDES 8.6 MG TABLET GT SCH ×2 (08:16→21:26)
[2019-01-22] MEDS: DAKINS QUARTER STRENGTH (0.125%) 480 ML BOTTLE TOP SCH (08:39)
[2019-01-22] MEDS: NEOMY SULF/BACITRAC ZN/POLY 15 GM TUBE TP SCH (08:40)
[2019-01-22] MEDS: GLUCERNA 1.2 1,000 ML BOTTLE NG PRN (09:07)
[2019-01-22 15:52] VITALS: BP 107/64
[2019-01-22] MEDS: PROSOURCE / PROSTAT (PYXIS) 30 ML UDC GT SCH (17:24)
--- NOTE | 2019-01-22 18:34 | NUR ---
MS RN CLOSING NOTES PATIENT IN BED RESTING COMFORTABLY IN MODERATE HIGH BACK REST. A/ O X 3. ON T-PIECE PORTEX 9, COOL AEROSOL 28% AT 5L OXYGEN, WITH NO ACUTE RESPIRATORY DISTRESS. ON GT FEEDING GLUCERNA AT 65ML/HR, INTACT AND INFUSING WELL; NO RESIDUALS PRESENT. IVF ON RIGHT HAND WITH NS AT 75 ML/HR. PATENT AND INTACT. SAFETY MEASURES IN PLACE, ASPIRATION PRECAUTION, CALL LIGHT WITHIN EASY REACH. BED IN LOWEST, LOCKED POSITION WITH SR X3. WILL ENDORSED TO TEST FACILITY ENGINEER NURSE FOR VITO.
[2019-01-22 20:00] VITALS: BP 112/67
--- NOTE | 2019-01-22 20:00 | NUR ---
ms manager human capital initial notes received pt in bed awake and alert with g-tube feeding, tolerated well no aspiration noted. he also with IVF NS at 75ml/hr infusing on his right hand patent and intact. dressing on his left shoulder/neck intact . denies any pain or any discomfort. kept him warm and comfortable at all times. pt on trach portex #9 . cleaned and intact. suction as needed. will continue monitoring. place call light at reach.
[2019-01-22] MEDS: ESCITALOPRAM OXALATE (10 MG) 10 MG TABLET GT SCH (21:26)
[2019-01-22] MEDS: INSULIN GLARGINE, 100 UNIT/ML CARTRIDGE SQ SCH (22:33)
--- NOTE | 2019-01-22 23:20 | NUR ---
ms mary notes pt called and complained of pain on his left neck /shoulder. norco tablet given clemente g-tube as ordered. Dressing on his left neck/shoulder soak with blood. changes as ordered , RT at the bedside also helping changing the trach dressing. encourage pt also called us if he needs some help. kept him warm and comfortable at all times. will continue monitoring.
[2019-01-23] MEDS: ALBUTEROL FS 2.5 MG/0.5 ML VIAL.NEB NEB SCH ×4 (00:59→20:19)
[2019-01-23] MEDS: IPRATROPIUM NEB FS 0.5 MG/2.5 ML AMPUL.NEB IH SCH ×4 (00:59→20:19)
--- NOTE | 2019-01-23 03:18 | NUR ---
ms medication manager notes' pt sleeping comfortably in bed without any distress noted.
[2019-01-23] MEDS: GLUCERNA 1.2 1,000 ML BOTTLE NG PRN ×2 (03:29→17:28)
--- NOTE | 2019-01-23 05:07 | NUR ---
RT PATIENT WAS RECEIVED ON COOL AEROSOL. PATIENT STABLE THROUGHOUT THE SHIFT . AIRWAY PATENT AND SECURED.WILL CONTINUE TO MONITOR. Addendum: 01/23/19 at 0509 by TAYA TAVARES RT Amended: Links added.
--- NOTE | 2019-01-23 06:10 | NUR ---
ms mary notes pt awake and alert with g-tube feeding tolerated well, no aspiration noted. wound care treatment on his left neck/shoulder also done. IVF still infusing .Denies any pain or any discomfort at this time. kept him warm and comfortable at all times. will continue monitoring. place call light at reach.
[2019-01-23 06:18] LABS: BASOPHILS % (AUTO) 0.2 % (0.0-2.0); EOSINOPHILS % (AUTO) 0.6 % (0.0-6.0); HEMATOCRIT 24 % (39-51); HEMOGLOBIN 7.7 g/dL (13.5-17.5); LYMPHOCYTES # (AUTO) 0.6 /CMM (0.8-4.8); LYMPHOCYTES % (AUTO) 7.5 % (20.0-44.0); MEAN CORPUSCULAR HGB CONC 32 g/dl (31.0-36.0); MEAN CORPUSCULAR VOLUME 74 fL (80-96); MONOCYTES # (AUTO) 0.7 /CMM (0.1-1.30); MONOCYTES % (AUTO) 9.4 % (2.0-12.0); NEUTROPHILS # (AUTO) 6.1 /CMM (1.8-8.9); NEUTROPHILS % (AUTO) 82.3 % (43.0-81.0); PLATELET COUNT (AUTO) 301 /CMM (150-450); WHITE BLOOD COUNT (AUTO) 7.4 K/uL (4.3-11.0)
[2019-01-23 06:26] LABS: CALCIUM, SERUM 8.7 mg/dL (8.5-10.1); CREATININE 0.7 mg/dL (0.6-1.3); MAGNESIUM 1.7 mg/dL (1.8-2.4); PHOSPHORUS 3.5 mg/dL (2.5-4.9); POTASSIUM 4.1 mmol/L (3.5-5.1)
[2019-01-23] MEDS: BLOOD SUGAR DIAGNOSTIC 1 EACH STRIP IN SCH ×4 (06:35→22:17)
[2019-01-23] MEDS: INSULIN REGULAR, HUMAN 100 UNIT/ML 3 ML VIAL SQ PRN ×4 (06:41→23:11)
--- NOTE | 2019-01-23 07:13 | NUR ---
ms cone operator closing notes pt back to sleep after morning care done and wound care also done. all due meds given and all needs met. g-tube feeding tolerated well, no aspiration noted. encourage pt to turn side to side . IVf still infusing on his right hand patent and intact. kept him warm and comfortable at all times. Blood sugar checked done 194, 3 units of insulin given clemente SQ as ordered. no signs of hypo/hyper glycemia noted. endorse to am nurse for continuity of care. place call light at reach.
--- NOTE | 2019-01-23 07:18 | NUR ---
MS RN OPENING NOTES RECEIVED PATIENT IN BED RESTING COMFORTABLY IN MODERATE HIGH BACK REST. A/ O X 3. ON T-PIECE PORTEX 9, COOL AEROSOL 28% AT 5L OXYGEN, WITH NO ACUTE RESPIRATORY DISTRESS. ON GT FEEDING GLUCERNA AT 65ML/HR, INTACT AND INFUSING WELL; NO RESIDUALS PRESENT. IVF ON RIGHT HAND WITH NS AT 75 ML/HR. PATENT AND INTACT. SAFETY MEASURES IN PLACE, ASPIRATION PRECAUTION, CALL LIGHT WITHIN EASY REACH. BED IN LOWEST, LOCKED POSITION WITH SR X3. WILL CONTINUE TO MONITOR.
[2019-01-23 08:00] VITALS: BP 109/72
[2019-01-23] MEDS: MIDODRINE HCL (5MG) 5 MG TABLET GT SCH ×2 (08:14→16:51)
[2019-01-23] MEDS: DOCUSATE SODIUM LIQ 100 MG/10 ML UDC GT SCH ×2 (08:16→21:33)
[2019-01-23] MEDS: SENNOSIDES 8.6 MG TABLET GT SCH ×2 (08:17→21:32)
[2019-01-23] MEDS: FAMOTIDINE (20 MG) 20 MG TABLET GT SCH (08:17)
[2019-01-23] MEDS: NEOMY SULF/BACITRAC ZN/POLY 15 GM TUBE TP SCH (08:18)
[2019-01-23] MEDS: DAKINS QUARTER STRENGTH (0.125%) 480 ML BOTTLE TOP SCH (08:19)
[2019-01-23] MEDS: Magnesium 1GM/D5W 100ML PREMIX 100 ML IV SCH ×2 (09:48→10:52)
[2019-01-23] MEDS: oxyCODONE IR immediate release 5 MG GT PRN (10:59)
[2019-01-23] MEDS: IV NS 0.9% 1,000 ML IV PRN (14:49)
[2019-01-23 16:00] VITALS: BP 128/66
[2019-01-23] MEDS: PROSOURCE / PROSTAT (PYXIS) 30 ML UDC GT SCH (17:32)
--- NOTE | 2019-01-23 18:29 | NUR ---
RN NOTES RECEIVED A REPORT FROM [facility] (LAB) THAT PATIENT'S LACTIC ACID IS 2.1. DEDE GOLDSMITH MADE AWARE WITH NO NEW ORDERS AT THIS TIME. WILL CONTINUE TO MONITOR AND F/U.
--- NOTE | 2019-01-23 18:57 | NUR ---
MS RN CLOSING NOTES RECEIVED PATIENT IN BED RESTING COMFORTABLY IN MODERATE HIGH BACK REST. A/ O X 3. ON T-PIECE PORTEX 9, COOL AEROSOL 28% AT 5L OXYGEN, WITH NO ACUTE RESPIRATORY DISTRESS. ON GT FEEDING GLUCERNA AT 65ML/HR, INTACT AND INFUSING WELL; NO RESIDUALS PRESENT. IVF ON RIGHT HAND WITH NS AT 75 ML/HR. PATENT AND INTACT. SAFETY MEASURES IN PLACE, ASPIRATION PRECAUTION, CALL LIGHT WITHIN EASY REACH. BED IN LOWEST, LOCKED POSITION WITH SR X3. WILL ENDORSE TO IMAGING SPECIALIST NURSE FOR VITO.
[2019-01-23] MEDS ORDERED: IV NS 0.9% 1,000 ML IV PRN (19:30)
--- NOTE | 2019-01-23 19:40 | NUR ---
MS RN OPENING NOTES RECEIVED PATIENT AWAKE IN BED CALM, RESTING COMFORTABLY IN MODERATE HIGH BACK REST. A/ O X 3. ON T-PIECE PORTEX 9, COOL AEROSOL 28% AT 5L OXYGEN, WITH NO ACUTE RESPIRATORY DISTRESS. ON GT FEEDING GLUCERNA AT 65ML/HR, INTACT AND INFUSING WELL; NO RESIDUALS PRESENT. IVF ON RIGHT HAND WITH NS AT 75 ML/HR. PATENT AND INTACT. SAFETY MEASURES IN PLACE, ASPIRATION PRECAUTION EMPHASIZE, CALL LIGHT WITHIN EASY REACH. BED IN LOWEST, LOCKED POSITION WITH SR X3. WILL CONTINUE TO MONITOR ACCORDINGLY.
[2019-01-23 20:00] VITALS: BP 103/57
[2019-01-23 20:35] LABS: BILIRUBIN,DIRECT 0.1 mg/dL (0.0-0.2); BILIRUBIN,TOTAL 0.3 mg/dL (0.2-1.0)
[2019-01-23] MEDS: ESCITALOPRAM OXALATE (10 MG) 10 MG TABLET GT SCH (21:33)
[2019-01-23] MEDS: INSULIN GLARGINE, 100 UNIT/ML CARTRIDGE SQ SCH (23:10)
[2019-01-24] MEDS: ALBUTEROL FS 2.5 MG/0.5 ML VIAL.NEB NEB SCH ×5 (02:07→20:01)
[2019-01-24] MEDS: IPRATROPIUM NEB FS 0.5 MG/2.5 ML AMPUL.NEB IH SCH ×5 (02:07→20:03)
[2019-01-24] MEDS: IV NS 0.9% 1,000 ML IV PRN (05:19)
[2019-01-24 06:32] LABS: BASOPHILS % (AUTO) 0.1 % (0.0-2.0); HEMATOCRIT 23 % (39-51); HEMOGLOBIN 7.4 g/dL (13.5-17.5); LYMPHOCYTES # (AUTO) 0.8 /CMM (0.8-4.8); LYMPHOCYTES % (AUTO) 4.4 % (20.0-44.0); MEAN CORPUSCULAR HGB CONC 32 g/dl (31.0-36.0); MEAN CORPUSCULAR VOLUME 74 fL (80-96); MONOCYTES # (AUTO) 0.6 /CMM (0.1-1.30); MONOCYTES % (AUTO) 3.5 % (2.0-12.0); NEUTROPHILS # (AUTO) 16.1 /CMM (1.8-8.9); PLATELET COUNT (AUTO) 316 /CMM (150-450); RED BLOOD CELL COUNT(AUTO) 3.14 MIL/uL (4.5-6.0); WHITE BLOOD COUNT (AUTO) 17.5 K/uL (4.3-11.0)
[2019-01-24 06:44] LABS: ALBUMIN 2.4 g/dL (3.4-5.0); BILIRUBIN,TOTAL 0.2 mg/dL (0.2-1.0); CALCIUM, SERUM 8.4 mg/dL (8.5-10.1); CREATININE 0.9 mg/dL (0.6-1.3); PHOSPHORUS 3.5 mg/dL (2.5-4.9); POTASSIUM 3.8 mmol/L (3.5-5.1); TOTAL PROTEIN, SERUM 7.2 g/dL (6.4-8.2)
--- NOTE | 2019-01-24 07:05 | NUR ---
MS RN INITIAL NOTES Received report at bedside. Received patient in bed, sleeping and easily aroused. On trach with no SOB noted. No signs and symptoms of distress. Safety measures in place. Will continue to monitor and assess patient
--- NOTE | 2019-01-24 07:15 | NUR ---
RN NOTES PATIENT'S IV OUT,NOTED UPON MAKING ROUNDS, PT REFUSED FOR RE INSERTION AT THIS TIME.
[2019-01-24] MEDS: BLOOD SUGAR DIAGNOSTIC 1 EACH STRIP IN SCH ×4 (07:16→21:44)
[2019-01-24] MEDS: INSULIN REGULAR, HUMAN 100 UNIT/ML 3 ML VIAL SQ PRN ×4 (07:17→21:48)
--- NOTE | 2019-01-24 07:23 | NUR ---
RN NOTES ALL NEEDS ATTENDED AND MET, ABLE TO REST AND SLEPT AT INTERVALS, WOUND DRESSING CHANGED, KEPT CLEAN AND DRY, CALM AND RESTING COMFORTABLY AT THIS TIME. ENDORSED TO AM NURSE FOR CONTINUITY OF CARE.
[2019-01-24 08:00] VITALS: BP 120/55
[2019-01-24] MEDS: SENNOSIDES 8.6 MG TABLET GT SCH ×2 (08:33→21:00)
[2019-01-24] MEDS: DOCUSATE SODIUM LIQ 100 MG/10 ML UDC GT SCH ×2 (08:34→21:00)
[2019-01-24] MEDS: MIDODRINE HCL (5MG) 5 MG TABLET GT SCH ×2 (08:34→17:00)
[2019-01-24] MEDS: FAMOTIDINE (20 MG) 20 MG TABLET GT SCH (08:34)
[2019-01-24] MEDS: DAKINS QUARTER STRENGTH (0.125%) 480 ML BOTTLE TOP SCH (08:35)
[2019-01-24] MEDS: NEOMY SULF/BACITRAC ZN/POLY 15 GM TUBE TP SCH (08:35)
[2019-01-24] MEDS ORDERED: PIPERACILLIN /TAZOBACTAM 3.375 G in IV D5W 50 ML IV ONE (10:00)
[2019-01-24 10:02] LABS: BAND % (MANUAL) 17 % (0.0-5.0); LYMPHOCYTES % (MANUAL) 3 % (16-48); NEUTROPHILS % (MANUAL) 80 (42-76)
--- NOTE | 2019-01-24 10:24 | NUR ---
MS RN NOTES New order of Zosyn acknowledged. Meds not available yet
--- NOTE | 2019-01-24 10:50 | NUR ---
MS RN NOTES New IV line on left forearm 20g inserted. Lucia followed up with pharmacy ([facility]). Will administer meds as soon as it's available.
--- NOTE | 2019-01-24 14:31 | NUR ---
MS RN - Report Notes Francis Kwon made aware of blood culture result of Gram + with cocci on chain. New order to start on Vanco.
[2019-01-24] MEDS: GLUCERNA 1.2 1,000 ML BOTTLE NG PRN (15:05)
[2019-01-24] MEDS ORDERED: FEE PK DOSING 1 MIN EA MC ONE (15:06)
[2019-01-24 16:00] VITALS: BP 103/55
[2019-01-24] MEDS: VANCOMYCIN 1 GM in IV D5W 250 ML IV SCH (16:39)
[2019-01-24] MEDS: PIPERACILLIN /TAZOBACTAM 3.375 G in IV D5W 100 ML IV SCH (17:27)
--- NOTE | 2019-01-24 17:49 | NUR ---
MS RN NOTES Charge nurse made aware of loose bowel movement. Per charge nurse, no collection necessary. Holding laxatives. Continue to monitor bowel movement
[2019-01-24] MEDS: PROSOURCE / PROSTAT (PYXIS) 30 ML UDC GT SCH (18:28)
--- NOTE | 2019-01-24 18:42 | NUR ---
MS RN CLOSING NOTES Patient intermittently sleeping, easily aroused and verbally responsive. All due meds given and tolerated. G-tube feeding tolerated well with residual <15ml. All wound dressings changed. Suctioned patient as needed. Continue and started new IV antibiotic for gram + cocci on chain. Accucheck done with insulin given per sliding scale. HOB elevated at all times for aspiration precation. No SOB noted. No signs and symptoms of distress. Kept patient clean, dry and comfortable. Turned and repositioned every two hours. Safety measures in place. Bed in lowest position with bed alarm on and call light within reach. Will endorse to oncoming shift nurse
--- NOTE | 2019-01-24 19:56 | NUR ---
MS RN NOTES RECEIVED PATIENT ASLEEP IN BED WITH NO DISTRESS NOTED. CALL LIGHT WITHIN REACH. TRACH INTACT AND PATENT. GT INTACT AND PATENT WITH FEEDING RUNNING AT 65ML/HR. DRESSING ON LEFT NECK/SHOULDER CLEAN, DRY, AND INTACT. PERIPHERAL LINE INTACT AND PATENT. BED IN LOW LOCK SETTING. ROOM FREE OF CLUTTER AND BELONGINGS KEPT NEAR BEDSIDE. BED ALARM ON AND FUNCTIONING PROPERLY. WILL CONTINUE TO MONITOR.
[2019-01-24] MEDS ORDERED: PIPERACILLIN /TAZOBACTAM 4.5 G in IV D5W 50 ML IV SCH (20:00)
--- NOTE | 2019-01-24 20:11 | NUR ---
RT NOTE: RECEIVED TRACH PT ON COOL AEROSOL. AMBU BAG @ BEDSIDE. Q6 BREATHING TX GIVEN PER MD ORDERS WITH NO ADVERSE REACTION NOTED. SX DONE PRN. TRACH PATENT AND SECURED. NO RESP DISTRESS NOTED AT THIS TIME. WILL CONTINUE TO MONITOR PT. Addendum: 01/25/19 at 0628 by STEPH NUÑEZ RT Amended: Links added.
[2019-01-24 20:13] VITALS: BP 93/53
[2019-01-24] MEDS: ESCITALOPRAM OXALATE (10 MG) 10 MG TABLET GT SCH (21:44)
[2019-01-24] MEDS: INSULIN GLARGINE, 100 UNIT/ML CARTRIDGE SQ SCH (21:49)
[2019-01-25] VITALS (9 sets, daily range): BP systolic 85–98; BP diastolic 50–63
[2019-01-25] MEDS: PIPERACILLIN /TAZOBACTAM 3.375 G in IV D5W 100 ML IV SCH ×3 (00:17→16:46)
[2019-01-25] MEDS: ALBUTEROL FS 2.5 MG/0.5 ML VIAL.NEB NEB SCH ×4 (01:32→19:33)
[2019-01-25] MEDS: IPRATROPIUM NEB FS 0.5 MG/2.5 ML AMPUL.NEB IH SCH ×4 (01:32→19:33)
[2019-01-25] MEDS: VANCOMYCIN 1 GM in IV D5W 250 ML IV SCH (04:45)
[2019-01-25] MEDS: INSULIN REGULAR, HUMAN 100 UNIT/ML 3 ML VIAL SQ PRN ×5 (06:09→23:08)
--- NOTE | 2019-01-25 06:22 | NUR ---
MS RN NOTES PATIENT ASLEEP IN BED WITH NO DISTRESS NOTED. CALL LIGHT WITHIN REACH. ALL DUE MEDS GIVEN ORDERED WITH NO ASE NOTED. STOOL SOFTNER AND LAXATIVES HELD D/T EPISODES OF LOOSE STOOL. SKIN TREATMENT RENDERED AND TOLERATED WELL. NOTED WITH INCREASED COUGHING AND SUCTIONED ORALLY AND VIA TRACH NEEDED. MIN-MOD AMOUNT BLOOD TINGED SECRETIONS. ASPIRATION PRECUATIONS MAINTAINED AND BREATHING TXS GIVEN SCHEDULED. NO C/O PAIN OR DISCOMFORT. NO RESPIRATORY DISTRESS NOTED. GTF RUNNING AND TOLERATED WELL. PERIPHERAL LINE INTACT AND PATENT. BED IN LOW LOCK SETTING. BED ALARM ON AND FUNCTIONING PROPERLY. ALL BELONGINGS KEPT NEAR BEDSIDE. WILL ENDORSE TO ONCOMING SHIFT.
[2019-01-25 06:31] LABS: BASOPHILS % (AUTO) 0.1 % (0.0-2.0); EOSINOPHILS % (AUTO) 0.1 % (0.0-6.0); LYMPHOCYTES # (AUTO) 0.1 /CMM (0.8-4.8); LYMPHOCYTES % (AUTO) 1.3 % (20.0-44.0); MEAN CORPUSCULAR HGB CONC 32 g/dl (31.0-36.0); MEAN CORPUSCULAR VOLUME 74 fL (80-96); MONOCYTES # (AUTO) 0.4 /CMM (0.1-1.30); MONOCYTES % (AUTO) 3.5 % (2.0-12.0); NEUTROPHILS # (AUTO) 11.3 /CMM (1.8-8.9); PLATELET COUNT (AUTO) 266 /CMM (150-450); RED BLOOD CELL COUNT(AUTO) 2.71 MIL/uL (4.5-6.0); WHITE BLOOD COUNT (AUTO) 11.9 K/uL (4.3-11.0)
[2019-01-25 06:38] LABS: CALCIUM, SERUM 8.4 mg/dL (8.5-10.1); CREATININE 1.3 mg/dL (0.6-1.3); PHOSPHORUS 3.5 mg/dL (2.5-4.9); POTASSIUM 3.6 mmol/L (3.5-5.1)
[2019-01-25 06:49] LABS: HEMATOCRIT 20 % (39-51); HEMOGLOBIN 6.4 g/dL (13.5-17.5)
--- NOTE | 2019-01-25 07:03 | NUR ---
RECEIVED CALL FROM LAB FOR H&H .08/28 WITH STANDING ORDER TO TRANSFUSE PRN FOR HGB<7. 1 UNIT PRBC AND TYPE&SCREEN ORDERED STAT. WILL INITIATE TRANSFUSION WHEN BLOOD AVAILABLE FROM BLOOD BANK. PATIENT AWAKE WITH WITH NO RESPIRATORY DISTRESS NOTED. WILL ENDORSE TO ONCOMING SHIFT.
[2019-01-25 07:12] LABS: THYROID STIMULATING HORMONE 2.749 uIU/mL (0.358-3.74); URIC ACID 3.7 mg/dL (2.6-7.2)
--- NOTE | 2019-01-25 07:25 | NUR ---
MS/RN OPENING NOTES RECEIVED PATIENT IN BED SLEEPING COMFORTABLY. EASILY AROUSABLE. NO ACUTE DISTRESS AT THIS TIME. RESPIRATION EVEN AND UNLABORED. SKIN IS DRY WARM TO TOUCH. HOB ELEVATED AT ALL TIMES TO PREVENT ASPIRATION. PATIENT ABLE TO TOLERATE GTF AND IVF WELL. WELL HIS SCHEDULED MEDICATION. NO ADVERSE REACTIONS. PATIENT IS ALSO SUCTIONED NEEDED. ALL NEEDS ANTICIPATED. KEPT CLEAN AND DRY. CALL LIGHT WITHIN REACHED. SAFETY MAINTAINED. BED LOCKED AND IN LOWEST POSITION. REPOSITIONED Q2HRS. PLAN OF CARE DISCUSSED. WILL CONTINUE TO MONITOR CLOSELY.
[2019-01-25] MEDS: BLOOD SUGAR DIAGNOSTIC 1 EACH STRIP IN SCH ×4 (08:07→22:59)
[2019-01-25] MEDS: DOCUSATE SODIUM LIQ 100 MG/10 ML UDC GT SCH ×2 (08:35→21:00)
[2019-01-25] MEDS: FAMOTIDINE (20 MG) 20 MG TABLET GT SCH (08:36)
[2019-01-25] MEDS: SENNOSIDES 8.6 MG TABLET GT SCH ×2 (08:36→21:00)
[2019-01-25] MEDS: LACTOBACILLUS RHAMNOSUS GG 1 EACH CAP.SPRINK GT SCH ×2 (08:36→17:13)
[2019-01-25 08:37] LABS: BAND % (MANUAL) 5 % (0.0-5.0); LYMPHOCYTES % (MANUAL) 1 % (16-48); MONOCYTES % (MANUAL) 1 % (0-11.0); NEUTROPHILS % (MANUAL) 93 (42-76)
[2019-01-25] MEDS: MIDODRINE HCL (5MG) 5 MG TABLET GT SCH ×2 (08:37→17:13)
--- NOTE | 2019-01-25 08:38 | NUR ---
MS/RN NOTES CONTINUES TO HOLD LAXATIVE MEDICATIONS DUE TO LOOSE STOOLS. PATIENT CONTINUES TO REMAIN IN STABLE CONDITION. WILL CONTINUE TO MONITOR CLOSELY.
[2019-01-25] MEDS: DAKINS QUARTER STRENGTH (0.125%) 480 ML BOTTLE TOP SCH (08:48)
[2019-01-25] MEDS: NEOMY SULF/BACITRAC ZN/POLY 15 GM TUBE TP SCH (08:48)
[2019-01-25] MEDS: GLUCERNA 1.2 1,000 ML BOTTLE NG PRN (12:16)
--- NOTE | 2019-01-25 13:00 | NUR ---
MS/RN NOTES URINE SPECIMEN AND WOUND CULTURE SPECIMEN WAS PLACED IN THE SPECIMEN FRIDGE. AWAITING FOR LAB'S DIRECTOR OF RESERVATIONS.
[2019-01-25] MEDS: IV NS 0.9% 1,000 ML IV PRN (14:04)
[2019-01-25] MEDS: SOD FERRIC GLUC 125 MG in IV NS 0.9% 100 ML IV SCH (14:05)
[2019-01-25 15:38] LABS: URINE SODIUM, RANDOM 17 mmol/l (40-220)
[2019-01-25] MEDS: VANCOMYCIN 0.75 GM in IV D5W 250 ML IV SCH (16:02)
[2019-01-25 16:22] LABS: OSMOLALITY,URINE 413 mOS/kg (340-1090)
[2019-01-25] MEDS: PROSOURCE / PROSTAT (PYXIS) 30 ML UDC GT SCH (17:10)
--- NOTE | 2019-01-25 18:57 | NUR ---
MS/RN CLOSING NOTES PATIENT CONTINUES TO REMAIN IN STABLE CONDITION THROUGHOUT THE SHIFT. PROVIDED COMFORT AND SAFETY. HOB ELEVATED AT ALL TIMES TO PREVENT ASPIRATION. PATIENT ABLE TO TOLERATE GTF AND IVF WELL. WELL HIS SCHEDULED MEDICATION. NO ADVERSE REACTIONS. PATIENT IS ALSO SUCTIONED NEEDED. ALL NEEDS ANTICIPATED. KEPT CLEAN AND DRY. CALL LIGHT WITHIN REACHED. SAFETY MAINTAINED. BED LOCKED AND IN LOWEST POSITION. REPOSITIONED Q2HRS. WILL CONTINUE TO MONITOR CLOSELY. ENDORSED TO PM NURSE FOR VITO.
--- NOTE | 2019-01-25 19:15 | NUR ---
MS/RN OPENING NOTES PT RECEIVED AWAKE, LAYING COMFORTABLY IN BED. PT IS ON COOL AEROSOL 5LPM FIO2 28% VIA TPIECE. BREATHING EVEN AND UNLABORED. DENIES SOB AND PAIN AT THIS TIME. GT FEEDING RUNNING ORDERED. IV TO LFA CURRENTLY INFUSING IV ABX. BED IN LOW/LOCKED POSITION WITH CALL LIGHT IN REACH. BILAT. UPPER SIDE RAILS IN PLACE. WILL CONTINUE TO MONITOR
[2019-01-25] MEDS: ESCITALOPRAM OXALATE (10 MG) 10 MG TABLET GT SCH (22:59)
[2019-01-25] MEDS: INSULIN GLARGINE, 100 UNIT/ML CARTRIDGE SQ SCH (23:09)
[2019-01-26] MEDS: PIPERACILLIN /TAZOBACTAM 3.375 G in IV D5W 100 ML IV SCH ×4 (00:21→23:27)
[2019-01-26] MEDS: IPRATROPIUM NEB FS 0.5 MG/2.5 ML AMPUL.NEB IH SCH ×4 (00:54→20:27)
[2019-01-26] MEDS: ALBUTEROL FS 2.5 MG/0.5 ML VIAL.NEB NEB SCH ×4 (00:54→20:28)
[2019-01-26] MEDS: VANCOMYCIN 0.75 GM in IV D5W 250 ML IV SCH ×2 (04:45→16:27)
[2019-01-26] MEDS: GLUCERNA 1.2 1,000 ML BOTTLE NG PRN ×2 (04:45→23:28)
--- NOTE | 2019-01-26 05:20 | NUR ---
MS/RN NOTES PT NOTED WITH BLOODY SECRETIONS IN SUCTION SETUP. WITH PRODUCTIVE COUGH WITH BLOODY THICK PHLEGM. YANKAUER USED, DEEP SUCTIONING PROVIDED. HOB ELEVATED AND PT TURNED TO THE SIDE. WOUND DRESSING CHANGE DONE. CRN MADE AWARE
[2019-01-26 06:25] VITALS: BP 91/50
[2019-01-26] MEDS: BLOOD SUGAR DIAGNOSTIC 1 EACH STRIP IN SCH ×4 (06:27→22:05)
[2019-01-26] MEDS: INSULIN REGULAR, HUMAN 100 UNIT/ML 3 ML VIAL SQ PRN ×4 (06:28→22:11)
--- NOTE | 2019-01-26 06:30 | NUR ---
MS/RN CLOSING NOTES PT ASLEEP, RESPONSIVE TO NAME. REMAINS ON COOL AEROSOL 5LPM AND FIO2 28% VIA TPIECE. SUCTIONED PRN. HOB ELEVATED. IV TO LFA PATENT AND INTACT RUNNING IVF ORDERED. WOUND CARE PROVIDED ORDERED. BLOODY SECRETIONS NOTED IN SUCTION SETUP. NO OTHER BLEEDING NOTED. BED IN LOW/LOCKED POSITION WITH CALL LIGHT IN REACH. SIDE RAILS UPX2. WILL ENDORSE TO DAY SHIFT RN VITO.
[2019-01-26 07:02] LABS: BASOPHILS % (AUTO) 0.1 % (0.0-2.0); EOSINOPHILS % (AUTO) 0.4 % (0.0-6.0); HEMATOCRIT 23 % (39-51); HEMOGLOBIN 7.4 g/dL (13.5-17.5); LYMPHOCYTES # (AUTO) 0.3 /CMM (0.8-4.8); MEAN CORPUSCULAR HGB CONC 33 g/dl (31.0-36.0); MEAN CORPUSCULAR VOLUME 76 fL (80-96); MONOCYTES # (AUTO) 0.5 /CMM (0.1-1.30); NEUTROPHILS # (AUTO) 6.8 /CMM (1.8-8.9); NEUTROPHILS % (AUTO) 89.5 % (43.0-81.0); PLATELET COUNT (AUTO) 248 /CMM (150-450); RED BLOOD CELL COUNT(AUTO) 2.96 MIL/uL (4.5-6.0); WHITE BLOOD COUNT (AUTO) 7.6 K/uL (4.3-11.0)
--- NOTE | 2019-01-26 07:20 | NUR ---
MS RN OPENING NOTES RECEIVED PATIENT IN BED RESTING COMFORTABLY IN MODERATE HIGH BACK REST. A/ O X 3. ON T-PIECE PORTEX 9, COOL AEROSOL 28% AT 5L OXYGEN, WITH NO ACUTE RESPIRATORY DISTRESS. ON GT FEEDING GLUCERNA AT 65ML/HR, INTACT AND INFUSING WELL; NO RESIDUALS PRESENT. IVF ON LEFT FA WITH NS AT 75 ML/HR. PATENT AND INTACT. SAFETY MEASURES IN PLACE, ASPIRATION PRECAUTION, CALL LIGHT WITHIN EASY REACH. BED IN LOWEST, LOCKED POSITION WITH SR X3. WILL CONTINUE TO MONITOR.
[2019-01-26 07:24] LABS: THYROID STIMULATING HORMONE 4.315 uIU/mL (0.358-3.74)
[2019-01-26 07:30] VITALS: BP 98/58
[2019-01-26 07:40] LABS: CALCIUM, SERUM 8.1 mg/dL (8.5-10.1); CREATININE 1.1 mg/dL (0.6-1.3); MAGNESIUM 2.3 mg/dL (1.8-2.4); PHOSPHORUS 3.3 mg/dL (2.5-4.9); POTASSIUM 3.6 mmol/L (3.5-5.1)
[2019-01-26] MEDS: DOCUSATE SODIUM LIQ 100 MG/10 ML UDC GT SCH ×2 (08:22→21:45)
[2019-01-26] MEDS: FAMOTIDINE (20 MG) 20 MG TABLET GT SCH (08:23)
[2019-01-26] MEDS: SENNOSIDES 8.6 MG TABLET GT SCH ×2 (08:23→21:45)
[2019-01-26] MEDS: LACTOBACILLUS RHAMNOSUS GG 1 EACH CAP.SPRINK GT SCH ×2 (08:23→16:31)
[2019-01-26] MEDS: MIDODRINE HCL (5MG) 5 MG TABLET GT SCH ×2 (08:37→16:44)
[2019-01-26] MEDS: DAKINS QUARTER STRENGTH (0.125%) 480 ML BOTTLE TOP SCH (08:38)
[2019-01-26] MEDS: NEOMY SULF/BACITRAC ZN/POLY 15 GM TUBE TP SCH (08:39)
[2019-01-26] MEDS: IV NS 0.9% 1,000 ML IV PRN (12:56)
[2019-01-26] MEDS: SOD FERRIC GLUC 125 MG in IV NS 0.9% 100 ML IV SCH (14:30)
[2019-01-26 16:00] VITALS: BP 100/61
[2019-01-26] MEDS: oxyCODONE IR immediate release 5 MG GT PRN (16:31)
[2019-01-26] MEDS: PROSOURCE / PROSTAT (PYXIS) 30 ML UDC GT SCH (17:39)
--- NOTE | 2019-01-26 18:49 | NUR ---
MS RN CLOSING NOTES PATIENT IN BED RESTING COMFORTABLY IN MODERATE HIGH BACK REST. A/ O X 3. ON T-PIECE PORTEX 9, COOL AEROSOL 28% AT 5L OXYGEN, WITH NO ACUTE RESPIRATORY DISTRESS. ON GT FEEDING GLUCERNA AT 65ML/HR, INTACT AND INFUSING WELL; NO RESIDUALS PRESENT. IVF ON LEFT FA WITH NS AT 75 ML/HR. PATENT AND INTACT. SAFETY MEASURES IN PLACE, ASPIRATION PRECAUTION, CALL LIGHT WITHIN EASY REACH. BED IN LOWEST, LOCKED POSITION WITH SR X3. WILL ENDORSED TO HEALTH EDUCATION ASSISTANT NURSE FOR VITO.
--- NOTE | 2019-01-26 19:10 | NUR ---
CHANGED OF SHIFT REPORT Patient in bed, awake, speech limited able to mouth word. Trach intact 5L Oxygen to cool aerosol 28%. Abdomen presence of Gtube, feeding Glucerna 1.2 @ 65ml/hr. Left side of the face extending to left eye and mouth area swelling, denies pain. Instructed patient to use call light for assistance, verbalized understanding. Fall/aspiration precaution maintained.
[2019-01-26 20:00] VITALS: BP 131/64
--- NOTE | 2019-01-26 20:28 | NUR ---
CARE ENDORSED Patient remains stable. Report given to ESTEVAN Schmidt for continuity of care.
[2019-01-26] MEDS: ESCITALOPRAM OXALATE (10 MG) 10 MG TABLET GT SCH (21:45)
[2019-01-26] MEDS: INSULIN GLARGINE, 100 UNIT/ML CARTRIDGE SQ SCH (22:08)
[2019-01-27] MEDS: ALBUTEROL FS 2.5 MG/0.5 ML VIAL.NEB NEB SCH ×4 (02:13→20:04)
[2019-01-27] MEDS: IPRATROPIUM NEB FS 0.5 MG/2.5 ML AMPUL.NEB IH SCH ×4 (02:13→20:04)
[2019-01-27] MEDS: VANCOMYCIN 0.75 GM in IV D5W 250 ML IV SCH ×3 (04:25→21:31)
--- NOTE | 2019-01-27 06:00 | NUR ---
PATIENT ASLEEP, EASILY AROUSABLE. RESPIRATIONS EVEN. NO SIGNS OF PAIN NOTED. NO SYMPTOMS OF HYPER/HYPOGLYCEMIA. DUE MEDS GIVEN WITH NO ASE NOTED. NEEDS ATTENDED. SUCTIONED PRN. LEFT NECK WOUND DRESSING CHANGED. GTF ONGOING ORDERED. NO RESIDUAL ASPIRATED. HOB RAISED. PATIENT TOLERATING GTF WELL. SAFETY PRECAUTIONS AND COMFORT MEASURES IN PLACE. WILL GIVE REPORT TO DAY SHIFT FOR CONTINUITY OF CARE.
[2019-01-27] MEDS: BLOOD SUGAR DIAGNOSTIC 1 EACH STRIP IN SCH ×4 (06:39→21:28)
[2019-01-27] MEDS: INSULIN REGULAR, HUMAN 100 UNIT/ML 3 ML VIAL SQ PRN ×4 (06:42→22:19)
[2019-01-27] MEDS: IV NS 0.9% 1,000 ML IV PRN (06:54)
[2019-01-27 07:40] LABS: CALCIUM, SERUM 8.1 mg/dL (8.5-10.1); CREATININE 0.9 mg/dL (0.6-1.3); POTASSIUM 3.8 mmol/L (3.5-5.1)
--- NOTE | 2019-01-27 07:46 | NUR ---
M/S RN NOTES PATIENT RESTING, LYING IN BED. HOB UP. PATIENT IN NO RESPIRATORY DISTRESS, NO C/O PAIN AT THIS TIME. IV NS INFUSING AT 75ML/HR ON THE LFA #20G, INTACT AND PATENT. GT INTACT AND PATENT, GT FEEDING OF GLUCERNA 1.2 RUNNING AT 65ML/HR, TOLERATING WELL. PATIENT'S NEEDS ATTENDED. BED ON LOWEST LOCKED POSITION, CALL LIGHT WITHIN REACH. WILL CONTINUE TO MONITOR.
[2019-01-27 08:00] VITALS: BP 113/65
[2019-01-27] MEDS: NEOMY SULF/BACITRAC ZN/POLY 15 GM TUBE TP SCH (08:26)
[2019-01-27] MEDS: PIPERACILLIN /TAZOBACTAM 3.375 G in IV D5W 100 ML IV SCH ×2 (08:26→16:43)
[2019-01-27] MEDS: DOCUSATE SODIUM LIQ 100 MG/10 ML UDC GT SCH ×2 (08:27→20:59)
[2019-01-27] MEDS: LACTOBACILLUS RHAMNOSUS GG 1 EACH CAP.SPRINK GT SCH ×2 (08:27→17:46)
[2019-01-27] MEDS: DAKINS QUARTER STRENGTH (0.125%) 480 ML BOTTLE TOP SCH (08:27)
[2019-01-27] MEDS: FAMOTIDINE (20 MG) 20 MG TABLET GT SCH (08:27)
[2019-01-27] MEDS: MIDODRINE HCL (5MG) 5 MG TABLET GT SCH ×2 (08:28→17:46)
[2019-01-27] MEDS: SENNOSIDES 8.6 MG TABLET GT SCH ×2 (08:28→20:59)
[2019-01-27] MEDS: SOD FERRIC GLUC 125 MG in IV NS 0.9% 100 ML IV SCH (14:55)
[2019-01-27 16:00] VITALS: BP 108/63
--- NOTE | 2019-01-27 17:05 | NUR ---
M/S RN NOTES NOTIFIED PHARMACY OF VANCO TROUGH LEVEL OF 20, HELD VANCOMYCIN IV PER PHARMACY.
[2019-01-27] MEDS ORDERED: CEFEPIME 1 GM in IV D5W 50 ML IV SCH (17:30)
[2019-01-27] MEDS: PROSOURCE / PROSTAT (PYXIS) 30 ML UDC GT SCH (17:46)
[2019-01-27] MEDS: CEFEPIME 2 GM in IV D5W 100 ML IV SCH (18:12)
[2019-01-27] MEDS: GLUCERNA 1.2 1,000 ML BOTTLE NG PRN (18:34)
--- NOTE | 2019-01-27 19:10 | NUR ---
M/S RN NOTES PATIENT AWAKE LYING IN BED. NO RESPIRATORY DISTRESS, NO C/O PAIN AT THIS TIME. PATIENT'S NEEDS ATTENDED. PATIENT'S IV ACCESS SITE INTACT AND PATENT, IV CEFEPIME RUNNING AT 100ML/HR. PATIENT'S NEEDS ATTENDED. BED ON LOWEST LOCKED POSITION, CALL LIGHT WITHIN REACH. WILL ENDORSE TO ONCOMING NURSE.
--- NOTE | 2019-01-27 19:45 | NUR ---
MS/RN OPENING NOTES RECEIVED PATIENT IN BED, ALERT X2, REQUIRE EXTENSIVE ASSISTANCE FOR SAFETY, CAN USE FACIAL EXPRESSION BUT FORGETFUL., PALE LOOKING, S/P PRBC LAST 01/25 WITH MULTIPLE MEDICAL HISTORY DYSPHAGIA, AND CHEMOTHERAPY RADIATION HISTORY. USES COOL AEROSOL, USING SUCTION FOR SECRETIONS, ON MS, USES URINAL. WITH LEFT NECK WOUND, ON GTUBE AT 1.2 WITH 65 ML/HR, WILL HAVE IV ANTIBIOTIC AND BLOOD SUGAR CHECK MONITORING.
[2019-01-27 20:00] VITALS: BP 112/68
--- NOTE | 2019-01-27 20:59 | NUR ---
ms/rn notes REPORTED HAD MULTIPLE BOWEL MOVEMENT EARLIER TODAY PER PATIENT.REFUSE MEDICATION FOR CONSTIPATION.
[2019-01-27] MEDS: ESCITALOPRAM OXALATE (10 MG) 10 MG TABLET GT SCH (21:28)
[2019-01-27] MEDS: INSULIN GLARGINE, 100 UNIT/ML CARTRIDGE SQ SCH (21:56)
[2019-01-28] MEDS: ALBUTEROL FS 2.5 MG/0.5 ML VIAL.NEB NEB SCH ×4 (02:09→19:45)
[2019-01-28] MEDS: IPRATROPIUM NEB FS 0.5 MG/2.5 ML AMPUL.NEB IH SCH ×4 (02:10→19:45)
--- NOTE | 2019-01-28 03:30 | NUR ---
MS/RN NOTES FEEDING HELD DUE TO RESIDUAL MORE THAN 100,WILL MONITOR.
[2019-01-28] MEDS: CEFEPIME 2 GM in IV D5W 100 ML IV SCH ×2 (05:45→17:37)
[2019-01-28] MEDS: BLOOD SUGAR DIAGNOSTIC 1 EACH STRIP IN SCH ×4 (05:46→21:24)
--- NOTE | 2019-01-28 06:19 | NUR ---
MS/RN NOTED GTUBE FEEDING STARTED. BLOOD SUGAR CHECKED AT 173
[2019-01-28] MEDS: INSULIN REGULAR, HUMAN 100 UNIT/ML 3 ML VIAL SQ PRN ×4 (06:38→21:27)
[2019-01-28 06:52] LABS: CALCIUM, SERUM 8.7 mg/dL (8.5-10.1); CREATININE 0.8 mg/dL (0.6-1.3); POTASSIUM 3.8 mmol/L (3.5-5.1)
--- NOTE | 2019-01-28 06:53 | NUR ---
MS/RN CLOSING NOTES PATIENT AWAKE, OPENS EYES, MOUTH WORDS, SELF CARE AND PARTICIPATIVE, REQUIRE EXTENSIVE ASSISTANCE IN TURNING AND REPOSITION, WOUND ON LEFT NECK AND LEFT SHOULDER, APPLY DRESSING REINFORCED. GTUBE RUNNING AND CHECK FOR PATENCY AND RESIDUALS WITH ZERO RESIDUALS. SUCTION NEEDED, PATIENT ABLE TO REQUESTED SELF ADMINISTER, RT ROUTINE BREATHING TX. MONITORING FRO ANY CHANGES. WILL ENDORSE TO AM RN FOR VITO.
--- NOTE | 2019-01-28 07:31 | NUR ---
M/S RN NOTES PATIENT RESTING, LYING IN BED. HOB ELEVATED. PATIENT IN NO RESPIRATORY DISTRESS, NO C/O PAIN AT THIS TIME. IV NS INFUSING AT 75ML/HR ON THE LT WRIST #22G, INTACT AND PATENT. GT INTACT AND PATENT, GT FEEDING OF GLUCERNA 1.2 RUNNING AT 65ML/HR, TOLERATING WELL. PATIENT'S NEEDS ATTENDED. BED ON LOWEST LOCKED POSITION, CALL LIGHT WITHIN REACH. WILL CONTINUE TO MONITOR.
[2019-01-28 08:00] VITALS: BP 117/77
--- NOTE | 2019-01-28 08:35 | NUR ---
RT NOTE: REC'D TRACH PT ON COOL AEROSOL. AMBU BAG @ BEDSIDE. Q6 BREATHING TX GIVEN PER MD ORDERS WITH NO ADVERSE REACTION NOTED. SX DONE PRN. TRACH PATENT AND SECURED. NO RESP DISTRESS NOTED AT THIS TIME. WILL CONTINUE TO MONITOR. Addendum: 01/28/19 at 0836 by KELLE BHATTI RT Amended: Links added.
[2019-01-28] MEDS: DOCUSATE SODIUM LIQ 100 MG/10 ML UDC GT SCH ×2 (08:48→21:23)
[2019-01-28] MEDS: LACTOBACILLUS RHAMNOSUS GG 1 EACH CAP.SPRINK GT SCH ×2 (08:48→16:37)
[2019-01-28] MEDS: FAMOTIDINE (20 MG) 20 MG TABLET GT SCH (08:48)
[2019-01-28] MEDS: SENNOSIDES 8.6 MG TABLET GT SCH ×2 (08:48→21:24)
[2019-01-28] MEDS: MIDODRINE HCL (5MG) 5 MG TABLET GT SCH ×2 (08:49→16:37)
[2019-01-28] MEDS: DAKINS QUARTER STRENGTH (0.125%) 480 ML BOTTLE TOP SCH (09:19)
[2019-01-28] MEDS: NEOMY SULF/BACITRAC ZN/POLY 15 GM TUBE TP SCH (09:20)
[2019-01-28 11:37] LABS: BASOPHILS % (AUTO) 0.1 % (0.0-2.0); EOSINOPHILS % (AUTO) 0.8 % (0.0-6.0); HEMATOCRIT 23 % (39-51); HEMOGLOBIN 7.5 g/dL (13.5-17.5); LYMPHOCYTES # (AUTO) 0.3 /CMM (0.8-4.8); LYMPHOCYTES % (AUTO) 4.5 % (20.0-44.0); MEAN CORPUSCULAR HGB CONC 32 g/dl (31.0-36.0); MEAN CORPUSCULAR VOLUME 76 fL (80-96); MONOCYTES # (AUTO) 0.6 /CMM (0.1-1.30); MONOCYTES % (AUTO) 8.4 % (2.0-12.0); NEUTROPHILS # (AUTO) 6.3 /CMM (1.8-8.9); NEUTROPHILS % (AUTO) 86.2 % (43.0-81.0); PLATELET COUNT (AUTO) 285 /CMM (150-450); RED BLOOD CELL COUNT(AUTO) 3.08 MIL/uL (4.5-6.0); WHITE BLOOD COUNT (AUTO) 7.3 K/uL (4.3-11.0)
[2019-01-28] MEDS: SOD FERRIC GLUC 125 MG in IV NS 0.9% 100 ML IV SCH (14:16)
[2019-01-28 16:02] VITALS: BP 96/49
[2019-01-28] MEDS: GLUCERNA 1.2 1,000 ML BOTTLE NG PRN (16:10)
[2019-01-28] MEDS: VANCOMYCIN 0.75 GM in IV D5W 250 ML IV SCH (16:13)
--- NOTE | 2019-01-28 16:14 | NUR ---
M/S RN NOTES PATIENT IN NO RESPIRATORY DISTRESS, NO C/O PAIN AT THIS TIME. PATIENT'S IV VANCO INFUSING AT 250ML/HR. PATIENT'S NEEDS ATTENDED. ENDORSED TO SHARAD BARRETO FOR CONTINUITY OF CARE.
[2019-01-28] MEDS: PROSOURCE / PROSTAT (PYXIS) 30 ML UDC GT SCH (17:13)
--- NOTE | 2019-01-28 18:37 | NUR ---
PATIENT AWAKE, OPENS EYES, PATIENT TURNED AND REPOSITIONED Q2H, WOUND ON LEFT NECK AND LEFT SHOULDER, APPLY DRESSING REINFORCED. G-TUBE FEEDING AT 65 ML/HR NO RESIDUAL NOTED. SUCTION NEEDED, PATIENT ABLE TO USE URINAL. DENIES ANY PAIN AT THIS TIME.ALL NEEDS ATTENDED. WILL ENDORSE TO NEXT SHIFT FOR VITO.
--- NOTE | 2019-01-28 19:30 | NUR ---
ESTEVAN INITIAL NOTES: RECEIVED REPORT FROM SHARAD BARRETO. PT IN BED, AWAKE, OPEN EYES SPONTANEOUSLY, A/O X 2-3, PT ON T-PIECE COOL AEROSOL 5L, FIO2 28%, PORTEX #9. PT HAS PEG, DRESSING C/D/I, ABDOMEN SOFT TOT TOUCH. PT HAS IV ACCESS ON LEFT WRIST G22 PATENT AND FLUSHING WELL, INFUSING WITH NS AT 75ML/HR. PT ABLE TO USE URINAL ON HIS OWN, ABLE TO SUCTION ORALLY, AND CALL RN IF NEEDS TO BE SUCTION BY RT. NOTED BLOOD STREAK ON SECRETIONS. SAFETY PRECAUTIONS FOR FALL INITIATED, CALL LIGHT IN REACH, WILL CONTINUE MONITORING PT. Addendum: 01/29/19 at 0048 by OPHELIA SMITH RN CORRECTION OF ENTRY: NS AT O
--- NOTE | 2019-01-28 19:31 | NUR ---
RN INITIAL NOTES: RECEIVED REPORT FROM SHARAD BARRETO. PT IN BED, AWAKE, OPEN EYES SPONTANEOUSLY, A/O X 2-3, PT ON T-PIECE COOL AEROSOL 5L, FIO2 28%, PORTEX #9. PT HAS PEG, DRESSING C/D/I, ABDOMEN SOFT TOT TOUCH. PT HAS IV ACCESS ON LEFT WRIST G22 PATENT AND FLUSHING WELL, INFUSING WITH NS AT TKO. PT ABLE TO USE URINAL ON HIS OWN, ABLE TO SUCTION ORALLY, AND CALL RN IF NEEDS TO BE SUCTION BY RT. NOTED BLOOD STREAK ON SECRETIONS. SAFETY PRECAUTIONS FOR FALL INITIATED, CALL LIGHT IN REACH, WILL CONTINUE MONITORING PT.
[2019-01-28 20:00] VITALS: BP 110/65
--- NOTE | 2019-01-28 20:30 | NUR ---
rn notes: noted pt able to suction himself, bloody secretions noted
--- NOTE | 2019-01-28 21:20 | NUR ---
RN NOTES: CHECK PT'S GTUBE RESIDUAL, NOTHING OBTAINED. PT ABDOMEN SOFT TO TOUCH WITH ACTIVE BOWEL SOUND HEARD UPON AUSCULTATION. PT CLAIMED HE DOES NOT HAVE ANY BM TODAY. DUE MEDS ADMINISTERED AT THIS TIME. CONNECTED PT BACK TO GT FEEDING OF GLUCERNA 1.2 AT 65ML/HR.
[2019-01-28] MEDS: ESCITALOPRAM OXALATE (10 MG) 10 MG TABLET GT SCH (21:23)
[2019-01-28] MEDS: INSULIN GLARGINE, 100 UNIT/ML CARTRIDGE SQ SCH (21:27)
--- NOTE | 2019-01-28 22:00 | NUR ---
RN NOTES: PT REFUSED TO BE REPOSITION AT THIS TIME, STATED HE ONLY WANTS TO BE TURNED ON HIS LEFT SIDE. EDUCATION PROVIDED TO PT, REGARDING RISK AND BENEFITS OF POSITION CHANGE AND POSSIBLE DEVELOPMENT OF PRESSURE ULCER.
--- NOTE | 2019-01-29 00:06 | NUR ---
RN NOTES: PT REFUSED TO BE REPOSITION, STATED HE'S MORE COMFORTABLE LAYING ON HIS LEFT SIDE D/T POSITION OF HIS TRACHE. STATED HE CANT BE LAYING IN BED, ONLY POSITION SUITABLE FOR HIM IS LEFT SIDE LYING WITH HOB 30 DEGREE'S DUE TO GTFEEDING. EDUCATION PROVIDED TO PT, INFORMED ABOUT POSSIBLE DEVELOPMENT OF PRESSURE ULCER. ALL COMMUNICATION WAS TRANSLATED IN TAGALOG PT IS TAGALOG SPEAKING.
[2019-01-29] MEDS: ALBUTEROL FS 2.5 MG/0.5 ML VIAL.NEB NEB SCH ×4 (01:40→19:44)
[2019-01-29] MEDS: IPRATROPIUM NEB FS 0.5 MG/2.5 ML AMPUL.NEB IH SCH ×4 (01:40→19:44)
--- NOTE | 2019-01-29 02:10 | NUR ---
ibeth notes: pt been sleeping, according to pt's family, pt doesnt complain of any abdominal pain or n/v Addendum: 01/29/19 at 0211 by OPHELIA SMITH RN correction of entry: disregard above documentation, wrong entry
--- NOTE | 2019-01-29 02:12 | NUR ---
rn notes: refused for turning and repositioning at this time, education provided to pt.
--- NOTE | 2019-01-29 05:00 | NUR ---
RN NOTES: PERFORMED WOUND CARE TX AT THIS TIME, PLACED NEW SET OF SUCTION SET UP, RT TAYA IN THE ROOM TO CHANGE THE INNER CANNULA AND SUCTION PT. REMAINS WITH BLOODY SECRETIONS
[2019-01-29] MEDS: CEFEPIME 2 GM in IV D5W 100 ML IV SCH ×2 (05:17→17:31)
[2019-01-29] MEDS: INSULIN REGULAR, HUMAN 100 UNIT/ML 3 ML VIAL SQ PRN ×4 (06:11→21:28)
--- NOTE | 2019-01-29 06:11 | NUR ---
ACCU CHECK 232: BLOOD SUGAR 232, 4UNITS OF INSULIN GIVEN PER SLIDING SCALE. PT ON GTUBE FEEDING
[2019-01-29] MEDS: BLOOD SUGAR DIAGNOSTIC 1 EACH STRIP IN SCH ×4 (06:13→21:16)
--- NOTE | 2019-01-29 06:36 | NUR ---
RT PATIENT WAS RECEIVED ON 28% COOL AEROSOL . BREATHING TREATMENT WAS GIVEN, PRN SUCTION WAS DONE.PATIENT STABLE THROUGHOUT THE SHIFT. AIRWAY PATENT AND SECURED.WILL CONTINUE TO MONITOR. Addendum: 01/29/19 at 0638 by TAYA TAVARES RT Amended: Links added.
[2019-01-29 06:37] LABS: CALCIUM, SERUM 8.8 mg/dL (8.5-10.1); CREATININE 0.8 mg/dL (0.6-1.3); POTASSIUM 3.9 mmol/L (3.5-5.1)
--- NOTE | 2019-01-29 07:05 | NUR ---
RN NOTES: PT SLEEPING, RESPIRATIONS EVEN AND UNLABORED, IV ACCESS REMAINS PATENT AND FLUSHING WELL, INFUSING WITH SN AT TKO. VS REMAINS STABLE, NEEDS ATTENDED. SAFETY PRECAUTIONS FOR FALL REMAINS ENAGGED, CALL LIGHT IN REACH, WILL ENDORSE TO DAY RN FOR VITO.
[2019-01-29 08:00] VITALS: BP 111/69
--- NOTE | 2019-01-29 08:00 | NUR ---
MS RN OPENING NOTES Received Patient asleep and resting in bed. VS stable with no acute distress. Breathing even and unlabored on trachea. No signs and symptoms of pain at this time. Trachea clean, in place and patent. Gtube in place and patent with Glucerna running at 65ml/hr. 22g PIV on Left Wrist clean, dry, intact and flushing well. Contact isolation precautions in place. Safety precautions in place. Bed locked and set to lowest position with HOB up and side rails x 2 up. Call light within reach. All needs rendered at this time. Will continue to monitor.
[2019-01-29] MEDS: FAMOTIDINE (20 MG) 20 MG TABLET GT SCH (09:14)
[2019-01-29] MEDS: DOCUSATE SODIUM LIQ 100 MG/10 ML UDC GT SCH ×2 (09:14→21:16)
[2019-01-29] MEDS: LACTOBACILLUS RHAMNOSUS GG 1 EACH CAP.SPRINK GT SCH ×2 (09:14→17:31)
[2019-01-29] MEDS: SENNOSIDES 8.6 MG TABLET GT SCH ×2 (09:15→21:16)
[2019-01-29] MEDS: MIDODRINE HCL (5MG) 5 MG TABLET GT SCH ×2 (09:15→17:31)
[2019-01-29] MEDS: NEOMY SULF/BACITRAC ZN/POLY 15 GM TUBE TP SCH (09:16)
[2019-01-29] MEDS: DAKINS QUARTER STRENGTH (0.125%) 480 ML BOTTLE TOP SCH (09:16)
[2019-01-29] MEDS: VANCOMYCIN 0.75 GM in IV D5W 250 ML IV SCH (09:52)
[2019-01-29] MEDS: SOD FERRIC GLUC 125 MG in IV NS 0.9% 100 ML IV SCH (14:42)
--- NOTE | 2019-01-29 15:38 | NUR ---
RT NOTE Pt received trach'd on cool aerosol. Pt sx'd and hhn tx's given with no adverse reactions. Pt is stable. No respiratory distress noted t/o shift. Will continue to monitor. Addendum: 01/29/19 at 1654 by DONOVAN GOMEZ RT Amended: Links added.
[2019-01-29 16:00] VITALS: BP 108/74
[2019-01-29] MEDS: PROSOURCE / PROSTAT (PYXIS) 30 ML UDC GT SCH (17:31)
[2019-01-29] MEDS: GLUCERNA 1.2 1,000 ML BOTTLE NG PRN (17:32)
--- NOTE | 2019-01-29 18:47 | NUR ---
MS RN CLOSING NOTES Patient asleep and resting in bed. VS stable with no acute distress. Breathing even and unlabored on trachea with cool aerosol. No signs and symptoms of pain at this time. Wound dressings clean, dry, and intact. Trachea clean, in place and patent. Suction Yankuer at bedside per Patients request. Gtube in place and patent with Glucerna running at 65ml/hr. 22g PIV on Left Wrist clean, dry, intact and flushing well. Contact isolation precautions in place. Safety precautions in place. Bed locked and set to lowest position with HOB up and side rails x 2 up. Call light within reach. All needs rendered at this time. Will endorse plan of care to oncoming shift.
--- NOTE | 2019-01-29 19:25 | NUR ---
RN INITIAL NOTES: RECEIVED REPORT FROM KAYA BARRETO. PT IN BED, ISOLATION FOR MRSA WOUND. PT ON TPIECE COOL AEROSOL 5L, PORTEX #9, PT RESPIRATIONS EVEN AND UNLABORED, PT ABLE TO MOUTH WORDS, A/O X2, TAGALOG SPEAKING. PT ABLE TO SUCTION HIMSELF ORALLY, NOTED BLOODY SECRETIONS, MD AWARE. PT ON GTUBE FEEDING, GLUCERNA 1.2 AT 65ML/HR. AWAITING TRANSFER FOR HIGHER LEVEL OF CARE VS TRANSFER TO SNF. SAFETY PRECAUTIONS FOR FALL INITIATED, CALL LIGHT IN REACH, WILL CONTINUE MONITORING PT.
[2019-01-29 20:00] VITALS: BP 124/73
[2019-01-29 20:05] VITALS: BP 124/73
--- NOTE | 2019-01-29 21:00 | NUR ---
rn notes: checked pt's gtube residual, nothing obtained, pt's abdomen soft to touch with active bowel sound heard upon auscultation.
[2019-01-29] MEDS: ESCITALOPRAM OXALATE (10 MG) 10 MG TABLET GT SCH (21:16)
[2019-01-29] MEDS: INSULIN GLARGINE, 100 UNIT/ML CARTRIDGE SQ SCH (21:28)
--- NOTE | 2019-01-29 21:47 | NUR ---
rn notes: suction pt at this time, noted bloody thick secretions, also suction orally. oral care provided.
--- NOTE | 2019-01-29 21:57 | NUR ---
rn notes: pt refused scd despite providing education, stated he does not want anything on his legs. all communication translated in tagalog.
[2019-01-30] MEDS: IPRATROPIUM NEB FS 0.5 MG/2.5 ML AMPUL.NEB IH SCH ×4 (01:30→18:54)
[2019-01-30] MEDS: ALBUTEROL FS 2.5 MG/0.5 ML VIAL.NEB NEB SCH ×4 (01:30→18:54)
--- NOTE | 2019-01-30 01:55 | NUR ---
IN-LINE HHN TREATMENT NOT GIVEN DUE TO HR >120; RN NOTIFIED. Addendum: 01/30/19 at 0156 by KUSHAL WASHINGTON RT Amended: Links added.
[2019-01-30] MEDS: VANCOMYCIN 0.75 GM in IV D5W 250 ML IV SCH ×2 (03:09→21:12)
[2019-01-30 05:00] VITALS: BP 110/65
[2019-01-30] MEDS: CEFEPIME 2 GM in IV D5W 100 ML IV SCH ×2 (05:07→17:55)
--- NOTE | 2019-01-30 05:33 | NUR ---
PATIENT RECEIVED ON 28% AEROSOL T-TUBE, TOLERATING WITH NO DISTRESS/SOB NOTED. SUCTIONED WITH LAVAGE FOR MINIMAL, THIN, YELLOW-CREAM SECRETIONS. GIVEN IN-LINE TREATMENT WITH NO ADVERSE REACTIONS. AMBU BAG AT BEDSIDE. Addendum: 01/30/19 at 0535 by KUSHAL WASHINGTON RT Amended: Links added.
--- NOTE | 2019-01-30 05:39 | NUR ---
rn notes: wound care performed, neck tie changed also at this time, new suction set up secured. suction pt orally and via trache, obtained bloody secretions. oral care provided
[2019-01-30] MEDS: INSULIN REGULAR, HUMAN 100 UNIT/ML 3 ML VIAL SQ PRN ×3 (06:06→21:41)
[2019-01-30] MEDS: BLOOD SUGAR DIAGNOSTIC 1 EACH STRIP IN SCH ×4 (06:07→21:12)
--- NOTE | 2019-01-30 06:42 | NUR ---
rn closing notes: pt in bed, remains on tpiece cool aerosol. respirations even and unlabored. iv access remains patent and flushing well, ns at tko. pt remains to have bloody thick secretions. oral care provided. gtube remains patent and flushing well, currently receiving glucerna 1.2 at 65ml/hr. [place] dc [place] sn[place] [facility] [place] for [place] remains engaged, call light in reach, will endorse to day rn for wilbert.
[2019-01-30 07:11] LABS: BASOPHILS % (AUTO) 0.3 % (0.0-2.0); HEMATOCRIT 25 % (39-51); HEMOGLOBIN 8.1 g/dL (13.5-17.5); LYMPHOCYTES # (AUTO) 0.6 /CMM (0.8-4.8); LYMPHOCYTES % (AUTO) 7.9 % (20.0-44.0); MEAN CORPUSCULAR HGB CONC 33 g/dl (31.0-36.0); MEAN CORPUSCULAR VOLUME 76 fL (80-96); MONOCYTES # (AUTO) 0.7 /CMM (0.1-1.30); MONOCYTES % (AUTO) 8.7 % (2.0-12.0); NEUTROPHILS # (AUTO) 6.3 /CMM (1.8-8.9); NEUTROPHILS % (AUTO) 82.1 % (43.0-81.0); PLATELET COUNT (AUTO) 308 /CMM (150-450); RED BLOOD CELL COUNT(AUTO) 3.29 MIL/uL (4.5-6.0); WHITE BLOOD COUNT (AUTO) 7.7 K/uL (4.3-11.0)
[2019-01-30 07:24] LABS: CREATININE 0.9 mg/dL (0.6-1.3); POTASSIUM 3.8 mmol/L (3.5-5.1)
[2019-01-30 08:00] VITALS: BP 110/68
--- NOTE | 2019-01-30 08:00 | NUR ---
RN NOTES RECEIVED PATIENT IN THE BED AWAKE A/O X2/3, EDEMA ON LEFT SIDE OF FACE INCLUDED EYES. PATIENT HAS NO ACUTE RESPIRATORY DISTRESS, ON TRACHEOSTOMY WITH SPEAKING VALVE, PATIENT ABLE TO EXPRESS SELF. PATIENT HAS A LATS OF MUCASE, AND ABLE TO SUCTION SELF . PATIENT WAS COMPLAINING OF PAIN 8/10 ON LEFT SIDE OF NECK ADMINISTERED OXY IR 10, AND SCHEDULED MEDICATION VIA G-TUBE. KEEP HOB ELEVATED FOR ASPIRATION PRECAUTION . INFUSING GLUCERNA 1.2 AT 65 ML/HR INTACT, DRESSING INTACT. PATIENT HAS A WOUND ON LEFT SIDE OF NECK BUT REFUSED DRESSING CHANGE AT THIS TIME. IV ACCESS ON LEFT WRIST KEEP TKO. ASSIST PATIENT TURN AND REPOSTION Q 2 HR. CALL LIGHT WITHIN TO REACH. CONTINUED MONITORING.
[2019-01-30] MEDS: DOCUSATE SODIUM LIQ 100 MG/10 ML UDC GT SCH ×2 (08:45→20:04)
[2019-01-30] MEDS: LACTOBACILLUS RHAMNOSUS GG 1 EACH CAP.SPRINK GT SCH ×2 (08:45→17:55)
[2019-01-30] MEDS: SENNOSIDES 8.6 MG TABLET GT SCH ×2 (08:45→20:04)
[2019-01-30] MEDS: FAMOTIDINE (20 MG) 20 MG TABLET GT SCH (08:45)
[2019-01-30] MEDS: MIDODRINE HCL (5MG) 5 MG TABLET GT SCH ×2 (08:47→17:56)
[2019-01-30] MEDS: oxyCODONE IR immediate release 5 MG GT PRN ×2 (08:48→20:01)
--- NOTE | 2019-01-30 08:48 | NUR ---
RN NOTES ADMINISTERED OXY IR 10 AT THIS TIME FOR LEFT NECK PAIN 12/18 PER PATIENT REQUEST, V/S TAKEN BP-110/68, P-121, R-19, CONTINUED MONITORING.
[2019-01-30] MEDS: DAKINS QUARTER STRENGTH (0.125%) 480 ML BOTTLE TOP SCH (09:00)
[2019-01-30] MEDS: NEOMY SULF/BACITRAC ZN/POLY 15 GM TUBE TP SCH (09:01)
[2019-01-30] MEDS ORDERED: VITAMINS A AND D 56.7 GM TUBE TP PRN (10:00)
--- NOTE | 2019-01-30 13:00 | NUR ---
RN NOTES PATIENT REFUSED BLOOD GLUCOSE TO BE CHECKED. FRASHED G-TUEB, PATIENT RESTING IN THE BED, MEDICATION EWRE ADMINISTERED FOR PAIN EFFECTIVE.
[2019-01-30] MEDS: GLUCERNA 1.2 1,000 ML BOTTLE NG PRN (15:56)
[2019-01-30 16:00] VITALS: BP 109/69
--- NOTE | 2019-01-30 16:00 | NUR ---
RN NOTES CHANGE G-TUBE FEEDING AT THIS TIME, FLASHED WITH WATER, RESIDUAL, AND PLACEMENT CHECKED. CONTINUED MONITORING.
[2019-01-30] MEDS: PROSOURCE / PROSTAT (PYXIS) 30 ML UDC GT SCH (18:04)
--- NOTE | 2019-01-30 18:30 | NUR ---
RN NOTES BS-170 GM/DL COVERAGE GIVEN, V/S STABLE, ADMINISTERED SCHEDULED MEDICATION VIA GT. G-TUBE FEEDING GLUCERNA 1.2 INFUSING AT 65 ML/HR INTACT, SUCTION PATIENT. PATIENT REFUSED DRESSING TO BE CHANGED. PATIENT TURN AND REPOSTION SELF IN THE BED, LEFT SIDE OF FACE STILL EDEMATOUS, REFUSED PAIN AT THIS TIME. PATIENT USING URINAL. ENDORSED ONCOMING NURSE FOLLOW PLAN OF CARE.
--- NOTE | 2019-01-30 19:09 | NUR ---
RT Notes PT received trached on cool aerosol on FIO2 28%. No signs of distress noted at this time. Airway patent and secured. PT suctioned. HHN TX given. [place] at bedside. Will cont to monitor. Addendum: 01/30/19 at 2058 by ROBEL ZAVALA RT Amended: Links added.
--- NOTE | 2019-01-30 19:15 | NUR ---
MS RN OPENING NOTES Received patient A/O x3, asleep on bed, easily awaken, able to communicate needs through mouth words. On t-piece cool areosol 5LPM FiO2 28%, saturating well, no SOB/respiratory distress noted. Patient independently suctions himself orally, scanty bloody secretions noted. With complaints of pain on L neck. With GTF Glucerna 1.2 @ 65ml.hr as ordered, abdomen soft and non-tender, no distention noted. Kept on bed clean, dry and comfortable. Call light within easy reach. Will continue to monitor accordingly.
[2019-01-30 20:04] VITALS: BP 107/62
[2019-01-30] MEDS: ESCITALOPRAM OXALATE (10 MG) 10 MG TABLET GT SCH (21:11)
[2019-01-30] MEDS: INSULIN GLARGINE, 100 UNIT/ML CARTRIDGE SQ SCH (21:40)
[2019-01-31] MEDS: ALBUTEROL FS 2.5 MG/0.5 ML VIAL.NEB NEB SCH ×4 (01:30→19:30)
[2019-01-31] MEDS: IPRATROPIUM NEB FS 0.5 MG/2.5 ML AMPUL.NEB IH SCH ×4 (01:30→19:30)
[2019-01-31] MEDS: oxyCODONE IR immediate release 5 MG GT PRN ×3 (02:12→16:53)
[2019-01-31] MEDS: CEFEPIME 2 GM in IV D5W 100 ML IV SCH ×2 (05:09→18:07)
[2019-01-31 06:20] LABS: CALCIUM, SERUM 8.8 mg/dL (8.5-10.1); POTASSIUM 3.8 mmol/L (3.5-5.1)
--- NOTE | 2019-01-31 06:49 | NUR ---
MS RN CLOSING NOTES Patient asleep, easily awaken, on trach with call aerosol 5L FiO2 28%, no SOB/respiratory distress noted. Medicated for pain, noted effective. All due meds given as ordered, no ASE noted. All nursing needs attended, no new complaints made. With GTF tolerated well, abdomen remained soft, and non-tender. Kept on bed clean, dry and comfortable. Call light within easy reach. Endorsed to the next shift. Endorsed to the next shift.
[2019-01-31] MEDS: BLOOD SUGAR DIAGNOSTIC 1 EACH STRIP IN SCH ×3 (06:51→17:06)
[2019-01-31] MEDS: INSULIN REGULAR, HUMAN 100 UNIT/ML 3 ML VIAL SQ PRN ×3 (06:52→17:09)
[2019-01-31 08:00] VITALS: BP 100/62
--- NOTE | 2019-01-31 08:00 | NUR ---
RN NOTES Received patient in the bed awake, a/o x2/3. patient has swollen face, unable to open left eyes. patient on tracheostomy with speaker valve. no acute respiratory distress, v/s stable, rechecked GT residual and placement, infusing Glucerna 1.2 at 65 ml/hr intact, keep head of the bed elevated for aspiration precaution. medication administered via g-tube. patient was complaining of pain on left neck, and face 7/10 on pain scale, assist patient turn and reposition q 2 hr. iv access on left fa intact, call light within to reach, needs attended and anticipated. Per DNP Lacho patient will d/c back to the SNF, continued monitoring.
[2019-01-31] MEDS: DOCUSATE SODIUM LIQ 100 MG/10 ML UDC GT SCH (08:33)
[2019-01-31] MEDS: LACTOBACILLUS RHAMNOSUS GG 1 EACH CAP.SPRINK GT SCH ×2 (08:33→16:54)
[2019-01-31] MEDS: FAMOTIDINE (20 MG) 20 MG TABLET GT SCH (08:33)
[2019-01-31] MEDS: SENNOSIDES 8.6 MG TABLET GT SCH (08:33)
--- NOTE | 2019-01-31 08:34 | NUR ---
RN NOTES ADMINISTERED OXY IR 10 AT THIS TIME PER PATIENT REQUEST, V/S TAKEN BP- 100/62, P-121, R-21, CONTINUED MONITORING. ALSO STARTED NEW BAG OF GLUCERNA 1.2 ML/HR . PATIENT WILL D/C BACK TO SNF AFTER PIC LINE INSERTION.
[2019-01-31] MEDS: DAKINS QUARTER STRENGTH (0.125%) 480 ML BOTTLE TOP SCH (08:35)
[2019-01-31] MEDS: NEOMY SULF/BACITRAC ZN/POLY 15 GM TUBE TP SCH (08:35)
[2019-01-31] MEDS: GLUCERNA 1.2 1,000 ML BOTTLE NG PRN (08:39)
[2019-01-31] MEDS: MIDODRINE HCL (5MG) 5 MG TABLET GT SCH ×2 (08:40→16:54)
--- NOTE | 2019-01-31 11:00 | NUR ---
rn notes medication were administered for pain effective, patient resting in the bed.
--- NOTE | 2019-01-31 12:00 | NUR ---
RN NOTES BS-186 MG/DL COVERAGE GIVEN, PATIENT STABLE TURN AND REPOSTION Q 2 HR. CALL LIGHT WITHIN TO REACH. PIC LINE PUT BY SHELIA GARCIA ON RIGHT UPPER ARM INTACT.
[2019-01-31 16:00] VITALS: BP 106/66
[2019-01-31] MEDS: VANCOMYCIN 0.75 GM in IV D5W 250 ML IV SCH (16:45)
[2019-01-31 16:54] VITALS: BP 110/66
[2019-01-31] MEDS: PROSOURCE / PROSTAT (PYXIS) 30 ML UDC GT SCH (17:06)
--- NOTE | 2019-01-31 18:30 | NUR ---
RN NOTES BS-186 MG/DL COVERAGE GIVEN, ADMINISTERED SCHEDULED MEDICATION VIA G-TUBE, V/S STABLE. PATIENT WILL D/C SNF, REPORT GIVEN ROHAN RN SNF. INFUSING CEFEPIME 200 ML/HR ON PIC LINE RIGHT UPPER ARM INTACT, PATIENT STABLE. CALL LIGHT WITHIN TO REACH. ENDORSED ONCOMING NURSE FOLLOW PLAN OF CARE.
--- NOTE | 2019-01-31 20:16 | NUR ---
RT NOTE PT IS CURRENTLY BEING CLEANED TO BE DISCHARGED. CAN NOT GIVE BREATHING TX DUE TO INCREASED HR. BLOODY SECRETIONS NOTED.
--- NOTE | 2019-01-31 20:30 | NUR ---
RN NOTES PT PICKED UP BY [facility], VITALS STABLE EXCEPT FRO HR OF 125, SUB ACUTE AWARE OF PT CONDITION WILL RECEIVE WITH CURRENT VITAL SIGNS.
== END 2019-01-31 21:57 | DRG 720 ==
LOC: ER 12:11 → TELE 14:54 → MED 01-21 08:08
PROVIDERS: ADMIT Hospitalist; ATTEND Nurse Practitioner Acute Care
PROC: 30233P1 Transfusion of Nonautologous Frozen Red Cells into Peripheral Vein, Percutaneous Approach (ICD-10-PCS; principal; 2019-01-25)
DX: A40.9 Streptococcal sepsis, unspecified (principal); J96.20 Acute and chronic respiratory failure, unspecified whether with hypoxia or hypercapnia; J69.0 Pneumonitis due to inhalation of food and vomit; R64 Cachexia; E44.0 Moderate protein-calorie malnutrition; E22.2 Syndrome of inappropriate secretion of antidiuretic hormone; J90 Pleural effusion, not elsewhere classified; J96.10 Chronic respiratory failure, unspecified whether with hypoxia or hypercapnia; C78.02 Secondary malignant neoplasm of left lung; C78.01 Secondary malignant neoplasm of right lung; C14.8 Malignant neoplasm of overlapping sites of lip, oral cavity and pharynx; Z93.0 Tracheostomy status; C14.0 Malignant neoplasm of pharynx, unspecified; R13.10 Dysphagia, unspecified; C76.0 Malignant neoplasm of head, face and neck; E11.65 Type 2 diabetes mellitus with hyperglycemia; D63.0 Anemia in neoplastic disease; Z68.1 Body mass index [BMI] 19.9 or less, adult; I10 Essential (primary) hypertension; F41.9 Anxiety disorder, unspecified; K21.9 Gastro-esophageal reflux disease without esophagitis; J44.9 Chronic obstructive pulmonary disease, unspecified; D50.9 Iron deficiency anemia, unspecified; Z93.1 Gastrostomy status; Z92.3 Personal history of irradiation; Z79.4 Long term (current) use of insulin; Z85.850 Personal history of malignant neoplasm of thyroid; Z79.51 Long term (current) use of inhaled steroids; L98.9 Disorder of the skin and subcutaneous tissue, unspecified; Z92.21 Personal history of antineoplastic chemotherapy; S20.312A Abrasion of left front wall of thorax, initial encounter; X58.XXXA Exposure to other specified factors, initial encounter; Y92.129 Unspecified place in nursing home as the place of occurrence of the external cause; L85.3 Xerosis cutis; Z83.3 Family history of diabetes mellitus; L98.499 Non-pressure chronic ulcer of skin of other sites with unspecified severity; L02.11 Cutaneous abscess of neck; F32.9 Major depressive disorder, single episode, unspecified; E86.1 Hypovolemia; H70.90 Unspecified mastoiditis, unspecified ear; J32.9 Chronic sinusitis, unspecified; I95.9 Hypotension, unspecified
CPT/HCPCS: 31720; 36415; 70470-TC; 70487-TC; 71045-TC; 71250-TC; 80048-TC; 80053-TC; 80061-TC; 80202-TC; 82247-TC; 82248-TC; 82272-TC; 82728-TC; 82962-TC; 83540-TC; 83605-TC; 83735-TC; 83935-TC; 84100-TC; 84300-TC; 84443-TC; 84550-TC; 85025-TC; 85730-TC; 86850-TC; 86921-TC; 87040-TC; 87070-TC; 87075-TC; 87081-TC; 87186-TC; 93307-TC; 94640-TC; 94760-TC; 94762-TC; 94799-TC; A4216; A4623; A6253; A6403; A7526; C1751; G0378; J0692; J1815; J2543; J2916; J3370; J3475; J7030; J7040; J7050; J7060; P9016-BL; Q9967